=== PATIENT | male | born 1960 | race Caucasian/White ===

== ENCOUNTER 2017-01-29 07:45 | Day surgery (SDC) | payer OTHER ==
[2017-01-26 14:18] VITALS: BMI 34.2
[2017-01-29] VITALS (11 sets, daily range): BP systolic 113–134; BP diastolic 67–89; PULSE 62–70; RESP 13–18; Ht 170.2 cm; Wt 91.0 kg
[~2017-01-29] VITALS: Ht 170.2 cm; Wt 91.0 kg
[~2017-01-29 07:45] MED LIST: ASPI-664 PO; BUPR100T7 PO; CARI350T PO; CARV3.12 PO; CEFAZOLIN 2 GM/50 ML (PMX) 50 ML IVPB ONE; CLOP75TA27 PO; HYD25 PO; HYDR-762 PO; LOSA1TAB3 PO; MIRT15TA5 PO
[2017-01-29] MEDS ORDERED: CARV25TA79 PO (08:37)
[2017-01-29] MEDS ORDERED: ROPI0.5T2 PO (08:39)
[2017-01-29] MEDS ORDERED: GABA300C16 PO (08:40)
--- NOTE | 2017-01-29 09:28 | HPN ---
Date/Time of Note Date/Time of Note DATE: 01/29/17 TIME: 09:27 Interval H&P Admission Note Pt. seen H&P reviewed: No system changes JULIUS RUSHING DPM January 29, 2017 09:28
[2017-01-29] MEDS ORDERED: PROPOFOL 20 ML ONE (09:56)
[2017-01-29] MEDS ORDERED: FENTAnyl 50 MCG/ML VIAL ONE (09:56)
[2017-01-29] MEDS ORDERED: MIDAZOLAM 1 MG/ML 2 ML INJ ONE (09:56)
[2017-01-29] MEDS ORDERED: CEFAZOLIN 1 GM INJ ONE (10:09)
[2017-01-29] MEDS ORDERED: DIPHENHYDRAMINE 50 MG INJ IV PRN (10:30)
[2017-01-29] MEDS ORDERED: METOCLOPRAMIDE 10 MG INJ IV PRN (10:30)
[2017-01-29] MEDS ORDERED: ONDANSETRON 4 MG INJ IV PRN (10:30)
[2017-01-29] MEDS ORDERED: MEPERIDINE 25 MG INJ IV PRN (10:30)
[2017-01-29] MEDS ORDERED: OXYCODONE/ACETAMINOPHEN (5/325) TAB PO PRN ×2 (10:30)
[2017-01-29] MEDS ORDERED: HYDROmorphONE (0.2 MG/ML) 10ML SYG IV PRN ×3 (10:30)
[2017-01-29] MEDS ORDERED: LIDOCAINE 1% (MPF) 30 ML INJ INJ ONE (10:35)
[2017-01-29] MEDS ORDERED: BUPIVACAINE 0.5% 30 ML VIAL INJ ONE (10:35)
== END 2017-01-29 12:45 | disposition home or self-care (01) ==
LOC: SDS 07:45
PROVIDERS: ATTEND Podiatrist Foot & Ankle Surgery
DX: M20.42 Other hammer toe(s) (acquired), left foot (principal); E11.9 Type 2 diabetes mellitus without complications; Z86.73 Personal history of transient ischemic attack (TIA), and cerebral infarction without residual deficits; E78.5 Hyperlipidemia, unspecified; F17.200 Nicotine dependence, unspecified, uncomplicated
CPT/HCPCS: 28285; 88305; 88311; J0690; J2250; J3010; L3260; Z7512; Z7610

== ENCOUNTER 2017-03-02 11:04 | Inpatient (IN) | payer MEDICARE, MEDICAID ==
[~2017-03-02] VITALS: Ht 170.2 cm; Wt 94.1 kg
[~2017-03-02 11:04] MED LIST changes: -BUPR100T7 PO; +CARV25TA79 PO; -CARV3.12 PO; -CEFAZOLIN 2 GM/50 ML (PMX) 50 ML IVPB ONE; +GABA300C16 PO; -HYD25 PO; -MIRT15TA5 PO; +ROPI0.5T2 PO
[2017-03-02] MEDS ORDERED: PIPER-TAZO 3.375 GM IV (PMX) 100 ML IVPB STA (12:07)
[2017-03-02] MEDS ORDERED: SODIUM CHLORIDE 0.9% 1L BAG IV* STA (12:07)
[2017-03-02] MEDS ORDERED: HYDROmorphONE 1 MG/ML SYG IV STA ×2 (12:07→17:35)
[2017-03-02] MEDS ORDERED: ACETAMINOPHEN 325 MG TAB PO PRN (12:30)
[2017-03-02] MEDS ORDERED: ONDANSETRON 4 MG INJ IV PRN (12:30)
[2017-03-02] MEDS ORDERED: VANCOMYCIN 1 GM (PMX) 250 ML IVPB ONE (12:30)
[2017-03-02 12:40] LABS: ADD SCAN DIFF NO
[2017-03-02 12:41] LABS: BASOPHILS % 0.2 % (0.0-2.0); EOSINOPHILS # 0.2 10^3/ul (0.0-0.5); EOSINOPHILS % 1.3 % (0.0-7.0); HEMATOCRIT 41.5 % (42.0-52.0); HEMOGLOBIN 14.4 g/dl (14.0-18.0); LYMPHOCYTES # 1.7 10^3/ul (0.8-2.9); LYMPHOCYTES % 12.8 % (15.0-51.0); MEAN CORPUSCULAR HEMOGLOBIN 31.2 pg (29.0-33.0); MEAN CORPUSCULAR HGB CONC 34.7 g/dl (32.0-37.0); MEAN PLATELET VOLUME 9.9 fl (7.4-10.4); MONOCYTE # 1.2 10^3/ul (0.3-0.9); MONOCYTES % 8.8 % (0.0-11.0); NEUTROPHILS % 76.4 % (39.0-77.0); PLATELET COUNT 328 10^3/UL (140-415); RED BLOOD COUNT 4.61 10^6/ul (4.70-6.10); RED CELL DISTRIBUTION WIDTH 12.6 % (11.5-14.5); WHITE BLOOD COUNT 13.1 10^3/ul (4.8-10.8)
[2017-03-02 13:01] LABS: INR 0.9; PROTIME 12.1 Sec (12.2-14.2); PT RATIO 0.9
[2017-03-02 13:02] LABS: PARTIAL THROMBOPLASTIN TIME 31.8 Sec (25.0-35.0)
[2017-03-02 13:03] LABS: ALBUMIN 4.6 g/dl (3.3-4.9); ALBUMIN/GLOBULIN RATIO 1.84; BILIRUBIN,INDIRECT 0.3 mg/dl (0-1.1); BILIRUBIN,TOTAL 0.3 mg/dl (0.2-1.3); CALCIUM 9.4 mg/dl (8.4-10.2); CREATININE 1.15 mg/dl (0.61-1.24); POTASSIUM 4.3 mmol/L (3.5-5.1); TOTAL PROTEIN 7.1 g/dl (6.1-8.1)
[2017-03-02] MEDS ORDERED: CARI350T29 PO (13:08)
[2017-03-02 13:15] LABS: TROPONIN-I 0.027 ng/ml (0.00-0.12)
[2017-03-02 14:29] VITALS: TEMP 97.8
--- NOTE | 2017-03-02 15:10 | ERA ---
ER Documentation Chief Complaint Date/Time DATE: 03/02/17 TIME: 15:08 Chief Complaint Complains of left foot pain and swelling (noted cellulitis) HPI Patient is a 56-year-old male with coronary disease and hypertension who presents with left foot swelling and redness. He hit his pain in his foot on the chair 6-7 days ago and has had swelling and redness since then. He had surgery by Dr. Mcdaniel from podiatry a few months ago. He is concerned for infection. He is not currently on antibiotics. He denies fevers. He tried elevation of the leg and ice. ROS All systems reviewed and are negative except as per history of present illness. 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 10/14/14 Reported Medications Carisoprodol* (Carisoprodol*) 350 Mg Tablet, 350 MG PO Q8 Y for MUSCLE SPASMS, TAB 03/02/17 Gabapentin* (Gabapentin*) 300 Mg Capsule, 300 MG PO TID, #90 CAP 01/29/17 Ropinirole Hcl* (Ropinirole Hcl*) 0.5 Mg Tablet, 0.5 MG PO HS, TAB 01/29/17 Carvedilol* (Carvedilol*) 25 Mg Tablet, 25 MG PO BID, #60 TAB 01/29/17 Aspirin* (Aspirin* EC) 81 Mg Tablet.dr, 81 MG PO DAILY, TAB 10/13/14 Hydrocodone Bit-Acetaminophen* ([place]*) 10-325 Mg Tablet, 1 TAB PO Q4H Y for PAIN, TAB 10/13/14 Losartan-Hydrochlorothiazide (Hyzaar) 50-12.5 Mg Tab, 1 TAB PO DAILY, TAB 10/13/14 Discontinued Reported Medications Carisoprodol* (Soma*) 350 Mg Tablet, 350 MG PO Q8H Y for MUSCLE SPASMS, TAB 10/13/14 Allergies Allergies: Coded Allergies: morphine (Verified Allergy, Unknown, ITCHING, 03/02/17) PMhx/Soc History of Surgery: Yes (L 2nd toe surgery) Anesthesia Reaction: Yes (HARD TO WAKE UP) Hx Neurological Disorder: No Hx Respiratory Disorders: No Hx Cardiac Disorders: Yes (STENT 2007 ) Hx Psychiatric Problems: Yes (WAS ON ANTIDEPRESSANT --WEANED OFF) Hx Miscellaneous Medical Probl: Yes (MISSING 4th FINGER RIGHT HAND) Hx Alcohol Use: Yes (RARE) Hx Substance Use: No Hx Tobacco Use: Yes Smoking Status: Current every day smoker FmHx Family History: No diabetes Physical Exam Vitals Vital Signs Date Time Temp Pulse Resp B/P Pulse Ox O2 Delivery O2 Flow Rate FiO2 03/02/17 14:29 97.8 68 16 111/81 98 Room Air 03/02/17 13:01 Nasal Cannula 03/02/17 11:10 98.3 77 20 130/76 96 Physical Exam Const: Moderate distress secondary to pain Head: Atraumatic Eyes: Normal Conjunctiva ENT: Normal External Ears, Nose and Mouth. Neck: Full range of motion..~ No meningismus. Resp: Clear to auscultation bilaterally Cardio: Regular rate and rhythm, no murmurs Abd: Soft, non tender, non distended. Normal bowel sounds Skin: Redness and swelling to the left foot concerning for cellulitis, no crepitus Back: No midline or flank tenderness Ext: No cyanosis, or edema Neur: Awake and alert Psych: Normal Mood and Affect Result Diagram: 03/02/17 1210 03/02/17 1210 Results 24 hrs Laboratory Tests Test 03/02/17 12:10 White Blood Count 13.110^3/ul Red Blood Count 4.6110^6/ul Hemoglobin 14.4g/dl Hematocrit 41.5% Mean Corpuscular Volume 90.0fl Mean Corpuscular Hemoglobin 31.2pg Mean Corpuscular Hemoglobin Concent 34.7g/dl Red Cell Distribution Width 12.6% Platelet Count 25592^3/UL Mean Platelet Volume 9.9fl Neutrophils % 76.4% Lymphocytes % 12.8% Monocytes % 8.8% Eosinophils % 1.3% Basophils % 0.2% Nucleated Red Blood Cells % 0.0/100WBC Neutrophils # 10.010^3/ul Lymphocytes # 1.710^3/ul Monocytes # 1.210^3/ul Eosinophils # 0.210^3/ul Basophils # 0.010^3/ul Nucleated Red Blood Cells # 0.010^3/ul Prothrombin Time 12.1Sec Prothrombin Time Ratio 0.9 INR International Normalized Ratio 0.90 Activated Partial Thromboplast Time 31.8Sec Sodium Level 139mmol/L Potassium Level 4.3mmol/L Chloride Level 103mmol/L Carbon Dioxide Level 30mmol/L Anion Gap 10 Blood Urea Nitrogen 24mg/dl Creatinine 1.15mg/dl Glucose Level 83mg/dl Lactic Acid Level 0.7mmol/L Calcium Level 9.4mg/dl Total Bilirubin 0.3mg/dl Direct Bilirubin 0.00mg/dl Indirect Bilirubin 0.3mg/dl Aspartate Amino Transf (AST/SGOT) 24IU/L Alanine Aminotransferase (ALT/SGPT) 27IU/L Alkaline Phosphatase 61IU/L Troponin I 0.027ng/ml Total Protein 7.1g/dl Albumin 4.6g/dl Globulin 2.50g/dl Albumin/Globulin Ratio 1.84 Current Medications Medications (Trade) Dose Ordered Sig/Reed Route PRN Reason Start Time Stop Time Status Last Admin Dose Admin Sodium Chloride 3100 ml 3,100 ml BOLUS OVER 2 HOURS STAT IV* 03/02/17 12:07 03/02/17 12:09 DC 03/02/17 12:50 Vancomycin HCl 250 ml @ 125 mls/hr ONCE ONCE IVPB 03/02/17 12:30 03/02/17 14:29 DC 03/02/17 13:49 Piperacillin Sod/ Tazobactam Sod (Zosyn 3.375gm/ 100 ml (Pmx)) 100 ml @ 200 mls/hr ONCE STAT IVPB 03/02/17 12:07 03/02/17 12:36 DC 03/02/17 12:50 Hydromorphone HCl (Dilaudid) 1 mg ONCE STAT IV 03/02/17 12:07 03/02/17 12:09 DC 03/02/17 12:50 Ondansetron HCl (Zofran Inj) 4 mg BRIDGE ORDER PRN IV NAUSEA AND/OR VOMITING 03/02/17 12:30 03/03/17 12:29 03/02/17 12:50 Acetaminophen (Tylenol Tab) 650 mg ER BRIDGE PRN PO MILD PAIN/FEVER 03/02/17 12:30 03/03/17 12:29 Procedures/MDM X-ray of the left foot pending at this time. EKG read by me: Rate/Rhythm: Regular rate and rhythm at a normal rate Intervals: Normal Impression: No evidence of ischemia or arrhythmia Smoking Cessation Therapy: Pt. was lectured for greater than 3 minutes on the health risks of continued smoking and the benefits of cessation. Patient is a 56-year-old male with coronary disease and smoking who presents with left foot swelling and redness. I am concerned for acute cellulitis and he has had recent surgery to the concern for osteomyelitis exists as well. The patient was given broad-spectrum antibiotics with vancomycin and Zosyn. At this point I doubt sepsis. The patient will be admitted to the care of Dr. Yadav as Dr. Yadav has admitted him in the past and he has Medicare insurance. The patient can be seen by Dr. Mcdaniel while he is admitted to the hospital. Departure Diagnosis: Primary Impression: Cellulitis Qualified Code: L03.116 - Cellulitis of left lower extremity Condition: SAILAJA Lr MD Mar 02, 2017 15:10
--- NOTE | 2017-03-02 15:31 | RADRPT ---
PROCEDURE: XR Foot 3 Views. CLINICAL INDICATION: Foot pain and infection. TECHNIQUE: AP, oblique and lateral views of the left foot were obtained. The images were reviewed on a PACS workstation. COMPARISON: None. FINDINGS: Fixation pin is identified extending through the second proximal and middle phalanges, into the prox imal phalanx. Diffuse osteopenia is identified. The osseous structures appear grossly intact. Pote ntial erosion of the tuft and undersurface of the second distal phalanx is identified. Interosseou s spaces are grossly unremarkable. Large Achilles insertion heel spur is seen. The soft tissues are grossly unremarkable. IMPRESSION: Fixation pin extending through the second distal and middle phalanges, into the proximal phalanx. Potential erosion of the tuft and undersurface of the second distal phalanx. Osteomyelitis is not e xcluded. If further characterization is needed MRI or bone scan could be helpful. Achilles insertion heel spur. If there is clinical suspicion for additional sites of osteomyelitis, further characterization with MRI or bone scan is recommended. RPTAT: AA .Hai Ibarra MD, MD Date Time Electronically viewed and signed by .Hai Ibarra MD, on 03/02/2017 15:31 .P/
[2017-03-02] MEDS ORDERED: CARISOPRODOL 350 MG TAB PO PRN (18:00)
[2017-03-02] MEDS ORDERED: VANCOMYCIN IV PER PHARMACY XX SCH (18:00)
[2017-03-02] MEDS: PIPER-TAZO 3.375 GM IV (PMX) 100 ML IVPB SCH (18:14)
[2017-03-02] MEDS ORDERED: VANCOMYCIN 1 GM in NS 250 ML IVPB SCH (18:30)
--- NOTE | 2017-03-02 18:31 | HP ---
DATE OF ADMISSION: 03/02/2017 CHIEF COMPLAINT: Left foot pain, swelling, redness extending to the left leg. HISTORY OF PRESENT ILLNESS: The patient is a 56-year-old gentleman with a history of coronary arter y disease, status post percutaneous coronary intervention to circumflex with drug-eluting stent by Nena Delgado in September 2014. The patient also has history of hypertension, mild peripheral arterial d isease, dyslipidemia, and tobacco abuse. The patient also is status post right foot hammertoe surge ry by Dr. Violeta perdomo in 2015. The patient, on 01/29/2017, underwent surgery for left foot hammerto e. Detailed operative report is still not available in the chart. The patient, however, was noted to have increasing swelling of the left foot including erythema and pain. The patient called Dr. Tommie taylor's office and was recommended to go to [facility] ER. The patient was seen in the ER b y Dr. Scott Dejesus, and the patient was noted to have white count of 13.1. The patient also underwe nt x-ray of the foot which revealed fixation pin extending through the second distal and middle phal anges into the proximal phalanx, potentially origin of tuft and undersurface of the second distal ph alanx. Osteomyelitis is not excluded. The patient is being admitted for further evaluation and man agement. REVIEW OF SYSTEMS: The patient denied any recent chest pain, headache, dizziness, syncope. No hist ory of shortness of breath, no history of claudication. No history of abdominal pain. No history o f nausea, vomiting, diarrhea. No history of anorexia, no history of focal weakness. A total of 12 systems were reviewed, and all pertinent positive and negative findings have been described in the H PI. PAST MEDICAL HISTORY: As stated above. The patient, back in September 2014, was admitted for electiv e cardiac catheterization after he was noted to have abnormal stress test and underwent CUPOLA MAN of circu mflex. 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 The patient incidentally at that time was also noted to have mild peripheral arterial disease. PAST SURGICAL HISTORY: The patient is status post degloving of the right 4th finger due to occupati on injury and hammertoe surgery for the right foot and recently had hammertoe surgery for the left f oot. FAMILY HISTORY: Father from complication of lung cancer at the age of 72. Mother with his tory of coronary artery disease. SOCIAL HISTORY: The patient was born in [place]. The patient has been smoking a pack of cigaret lexi a day for several years. The patient does intend to quit smoking. PHYSICAL EXAMINATION: GENERAL: The patient is conscious, awake, alert. VITAL SIGNS: Temperature 97.8, pulse 68, respirations 16, blood pressure 111/61, O2 saturation 98% on room air. HEENT: Atraumatic, normocephalic. Conjunctivae and lids normal. Oropharynx clear. NECK: Supple. No mass, no thyromegaly. CHEST: Fairly clear. No use of accessory muscles. CARDIOVASCULAR: S1, S2 normal. No murmur, gallop, or rub. ABDOMEN: Soft, nondistended, nontender. No palpable mass. EXTREMITIES: Left foot is warm, swollen, and tender, and also the swelling is extending into the le ft leg. Right foot is normal with status post hammertoe surgery. Pedal pulses palpable in the righ t foot. Left foot, because of swelling, I could not appreciate pedal pulses. NEUROLOGIC: The patient is awake, alert, oriented with no gross focal deficit. LABORATORY DATA: Done this morning, WBC 13.1, hemoglobin 14.4, platelets 328. Chemistry: Sodium 1 39, potassium 4.3, BUN 24, creatinine 1.1, glucose 83, calcium 9.4. Liver enzymes normal. IMPRESSION: 1. Left foot abscess with possible osteomyelitis and left leg cellulitis, possibly due to postopera tive infection after recent left foot hammertoe surgery. 2. Hypertension. 3. Coronary artery disease status post CUPOLA MAN of left circumflex. 4. Dyslipidemia. PLAN: The patient is admitted on medical floor. The patient will be started on IV vancomycin and Z osyn. Blood cultures have been sent from ER. The patient will be continued on aspirin, Plavix, car vedilol, and Hyzaar. We will add Lovenox for DVT prophylaxis. ID consult from Dr. Isbell has bee n requested, and we will also notify Dr. Mann Mcdaniel from podiatry standpoint. Plan of care discus sed with Dr. Scott Dejesus as well as nursing staff. Further recommendations will depend on patient' s hospital course. Dictated By: ANGÉLICA REID/FELIPE Conf#: [id number] [facility]#: [id number]
[2017-03-02 19:03] LABS: ADD UMIC NO; UR BILIRUBIN (Dip) NEGATIVE (NEGATIVE); UR BLOOD (Dip) NEGATIVE (NEGATIVE); UR CLARITY CLEAR (CLEAR); UR COLOR LT. YELLOW (YELLOW); UR GLUCOSE (Dip) NEGATIVE (NEGATIVE); UR KETONES (Dip) NEGATIVE (NEGATIVE); UR LEUKOCYTE ESTERASE (Dip) NEGATIVE (NEGATIVE); UR NITRITE (Dip) NEGATIVE (NEGATIVE); UR TOTAL PROTEIN (Dip) NEGATIVE (NEGATIVE); UR UROBILINOGEN (Dip) 0.2 E.U./dL (0.1-1.0)
[2017-03-02 19:36] VITALS: Ht 170.2 cm; Wt 94.1 kg
[2017-03-02 20:41] VITALS: BP 132/84; RESP 20
[2017-03-02] MEDS: HYDROmorphONE 1 MG/ML SYG IV PRN (21:42)
[2017-03-02] MEDS: GABAPENTIN 300 MG CAP PO SCH (21:48)
[2017-03-02] MEDS: ATORVASTATIN 20 MG TAB PO SCH (21:48)
[2017-03-02] MEDS: ROPINIROLE 0.25 MG TAB PO SCH (21:48)
[2017-03-02] MEDS ORDERED: AL HYDROX/MG HYDROX/SIMETH 30 ML CUP PO PRN ×2 (22:00)
[2017-03-03] MEDS: PIPER-TAZO 3.375 GM IV (PMX) 100 ML IVPB SCH ×4 (01:03→17:36)
[2017-03-03] MEDS: PANTOPRAZOLE (EC) 40 MG TAB PO SCH (05:45)
[2017-03-03] MEDS: HYDROmorphONE 1 MG/ML SYG IV PRN ×2 (05:48→18:03)
[2017-03-03 08:06] VITALS: BP 136/65; RESP 18
[2017-03-03] MEDS: ASPIRIN (EC) 81 MG TAB PO SCH (08:45)
[2017-03-03] MEDS: HYDROCHLOROTHIAZIDE 12.5 MG CAP PO SCH (08:46)
[2017-03-03] MEDS: CLOPIDOGREL 75 MG TAB PO SCH (08:46)
[2017-03-03] MEDS: GABAPENTIN 300 MG CAP PO SCH ×3 (08:46→21:50)
[2017-03-03] MEDS: LOSARTAN 50 MG TAB PO SCH (08:47)
[2017-03-03] MEDS ORDERED: LOSARTAN HYDROCHLOROTHIAZIDE PO SCH (09:00)
[2017-03-03] MEDS: ENOXAPARIN 40 MG/0.4 ML SYG SC SCH (09:01)
[2017-03-03] MEDS: VANCOMYCIN 1.25 GM in SOD CHLORIDE 0.9% 250 ML IVPB SCH ×2 (09:55→21:50)
--- NOTE | 2017-03-03 11:23 | PN ---
Date/Time of Note Date/Time of Note DATE: 03/03/17 TIME: 11:22 Assessment/Plan VTE Prophylaxis VTE Prophylaxis Intervention: other Lines/Catheters IV Catheter Type (from Nrs): Saline Lock Assessment/Plan Chief Complaint/Hosp Course 1. Left foot abscess with possible osteomyelitis and left leg cellulitis, possibly due to postoperative infection after recent left foot hammertoe surgery. - IV antibiotics - surgery to see 2. Hypertension. - monitor, continue medications 3. Coronary artery disease status post EPIC PRELUDE ANALYST of left circumflex. 4. Dyslipidemia. Problems: Subjective 24 Hr Interval Summary Free Text/Dictation Patient complains of left foot pain Exam/Review of Systems Vital Signs Vitals Vital Signs Date Time Temp Pulse Resp B/P Pulse Ox O2 Delivery O2 Flow Rate FiO2 03/03/17 08:06 97.5 63 18 136/65 97 03/02/17 14:29 Room Air Intake and Output 03/02/17 03/02/17 03/03/17 15:00 23:00 07:00 Intake Total 100 ml 1170 ml Output Total 700 ml Balance 100 ml 470 ml Exam Constitutional: well developed Head: atraumatic, normocephalic Neck: supple Respiratory: clear to auscultation Cardiovascular: regular rate and rhythm Gastrointestinal: non-tender, soft Extremities: normal pulses Results Result Diagram: 03/02/17 1210 03/02/17 1210 Results 24 hrs Laboratory Tests Test 03/02/17 12:10 03/02/17 14:45 03/02/17 18:51 03/02/17 19:40 White Blood Count 13.1 H Red Blood Count 4.61 L Hemoglobin 14.4 Hematocrit 41.5 L Mean Corpuscular Volume 90.0 Mean Corpuscular Hemoglobin 31.2 Mean Corpuscular Hemoglobin Concent 34.7 Red Cell Distribution Width 12.6 Platelet Count 328 Mean Platelet Volume 9.9 Neutrophils % 76.4 Lymphocytes % 12.8 L Monocytes % 8.8 Eosinophils % 1.3 Basophils % 0.2 Nucleated Red Blood Cells % 0.0 Neutrophils # 10.0 H Lymphocytes # 1.7 Monocytes # 1.2 H Eosinophils # 0.2 Basophils # 0.0 Nucleated Red Blood Cells # 0.0 Prothrombin Time 12.1 L Prothrombin Time Ratio 0.9 INR International Normalized Ratio 0.90 Activated Partial Thromboplast Time 31.8 Sodium Level 139 Potassium Level 4.3 Chloride Level 103 Carbon Dioxide Level 30 Anion Gap 10 Blood Urea Nitrogen 24 H Creatinine 1.15 Glucose Level 83 Lactic Acid Level 0.7 1.1 1.1 Calcium Level 9.4 Total Bilirubin 0.3 Direct Bilirubin 0.00 Indirect Bilirubin 0.3 Aspartate Amino Transf (AST/SGOT) 24 Alanine Aminotransferase (ALT/SGPT) 27 Alkaline Phosphatase 61 Troponin I 0.027 Total Protein 7.1 Albumin 4.6 Globulin 2.50 Albumin/Globulin Ratio 1.84 Urine Color LT. YELLOW Urine Clarity CLEAR Urine pH 5.5 Urine Specific [place] >=1.030 H Urine Ketones NEGATIVE Urine Nitrite NEGATIVE Urine Bilirubin NEGATIVE Urine Urobilinogen 0.2 E.U./dL Urine Leukocyte Esterase NEGATIVE Urine Hemoglobin NEGATIVE Urine Glucose NEGATIVE Urine Total Protein NEGATIVE Medications Medications Current Medications Aspirin (Halfprin) 81 mg DAILY PO Last administered on 03/03/17 08:45; Admin Dose 81 MG; Start 03/03/17 at 09:00 Carisoprodol (Soma) 350 mg Q8 PRN PO MUSCLE SPASMS; Start 03/02/17 at 18:00 Carvedilol (Coreg) 25 mg BID PO Last administered on 03/03/17 08:48; Admin Dose 25 MG; Start 03/02/17 at 21:00 Clopidogrel Bisulfate (plaVIX) 75 mg DAILY PO Last administered on 03/03/17 08 :46; Admin Dose 75 MG; Start 03/03/17 at 09:00 Gabapentin (Neurontin) 300 mg TID PO Last administered on 03/03/17 08:46; Admin Dose 300 MG; Start 03/02/17 at 21:00 Acetaminophen/ Hydrocodone Bitart ([place] (10/325)) 1 tab Q4H PRN PO PAIN; Start 03/02/17 at 18:00 Ropinirole HCl (Requip) 0.5 mg HS PO Last administered on 03/02/17 21:48; Admin Dose 0.5 MG; Start 03/02/17 at 21:00 Atorvastatin Calcium 20 mg 20 mg HS PO Last administered on 03/02/17 21:48; Admin Dose 20 MG; Start 03/02/17 at 21:00 Piperacillin Sod/ Tazobactam Sod (Zosyn 3.375gm/ 100 ml (Pmx)) 100 ml @ 200 mls /hr Q6 IVPB Last administered on 03/03/17 05:45; Admin Dose 200 MLS/HR; Start 03/02/17 at 18:00 Enoxaparin Sodium (Lovenox) 40 mg DAILY SC Last administered on 03/03/17 09:01 ; Admin Dose 40 MG; Start 03/03/17 at 09:00 Hydromorphone HCl (Dilaudid) 1 mg Q4H PRN IV PAIN Last administered on 05:48; Admin Dose 1 MG; Start 03/02/17 at 18:00 Acetaminophen (Tylenol Tab) 650 mg Q4H PRN PO PAIN AND OR ELEVATED TEMP; Start 03/02/17 at 18:00 Losartan Potassium (Cozaar) 50 mg DAILY PO Last administered on 03/03/17 08:47 ; Admin Dose 50 MG; Start 03/03/17 at 09:00 Hydrochlorothiazide 12.5 mg 12.5 mg DAILY PO Last administered on 03/03/17 08: 46; Admin Dose 12.5 MG; Start 03/03/17 at 09:00 Vancomycin HCl/ Sodium Chloride (Vancocin/NS) 250 ml @ 83.333 mls/ hr Q12H IVPB Last administered on 03/03/17 09:55; Admin Dose 83.333 MLS/HR; Start 07/10 at 09:00 Pantoprazole (Protonix Tab) 40 mg DAILY@06 PO Last administered on 03/03/17 05 :45; Admin Dose 40 MG; Start 03/03/17 at 06:00 Al Hydrox/Mg Hydrox/Simethicone (Mag-Al Plus) 30 ml Q4H PRN PO HEART BURN; Start 03/02/17 at 22:00 Miscellaneous Information (*Rx Drug Level Order Reminder*) VANCOMYCIN TROUGH AT 0800 ONCE ONCE XX ; Start 03/04/17 at 08:00; Stop 03/04/17 at 08:01 RAFAEL PAK Mar 03, 2017 11:23
[2017-03-03] MEDS: HYDROCODONE/APAP (10/325) TAB PO PRN (12:48)
--- NOTE | 2017-03-03 18:47 | CONS ---
Date/Time of Note Date/Time of Note DATE: 03/03/17 TIME: 18:32 Assessment/Plan Assessment/Plan Chief Complaint/Hosp Course assessment/impression - possible erosion and OM of the tuft and undersurface of 2nd distal phalanx (X Ray finding), probably involving the fixation pin as pus was expressed at its insertion site - s/p L hammartoe repair on 01/29/2017 - s/p R hammartoe repair in 2016 - h/o skin and soft tissue infection of RLE - CAD s/p PCI - PVD - active smoker - moderate drinker recommendations - I expressed purulence from the insertion site of the fixation pin of L 2nd toe and sent it for culture today; will review the result - check ESR (ordered) - continue empiric IV vancomycin and pip/tazo; will adjust his antibiotics based on the final culture results management d/w Pt, his and RN CAD and PVD. Pt had repair of R hammertoe in 2015. On 01/29/2017, Pt repair of L hammertoe and a fixation pin is in L 2nd toe. Next 4 weeks, Pt experienced slowly increasing pain, erythema and swelling of L toes and foot. As a result, Pt was advised to come to ER. XR of L foot showed Problems: Consultation Date/Type/Reason Admit Date/Time Mar 02, 2017 at 12:28 Date of Consultation: Mar 03, 2017 Type of Consultation: ID Reason for Consultation diabetic infection and probable OM of L foot Referring Provider: ANGÉLICA YADAV MD Hx of Present Illness This is a 56 yo male smoker with CAD and PVD. Pt had repair of R hammertoe in 2015. On 01/29/2017, Pt repair of L hammertoe and a fixation pin is in L 2nd toe. Next 4 weeks, Pt experienced slowly increasing pain, erythema and swelling of L toes and foot. As a result, Pt was advised to come to ER. XR of L foot showed possible erosion and OM of the tuft and undersurface of the second distal phalanx. Dr. Yadav requested ID consultation on this Pt. Constitutional: chills, No diaphoresis, No febrile Eyes: no complaints ENT: no complaints Respiratory: no complaints Cardiovascular: no complaints Gastrointestinal: no complaints Genitourinary: no complaints Musculoskeletal: bone/joint pain (severe L toe and foot pain) Skin: erythema (and swelling of L dorsal foot) Neurologic: no complaints Past Medical History Medical History: coronary artery disease, hypertension, other (PVD) Past Surgical History Past Surgical Hx: angioplasty, other (hammertoe repair) Social History Alcohol Use: occasionally Smoking Status: Current some day smoker Drug Use: none Exam/Review of Systems Vital Signs Vitals Vital Signs Date Time Temp Pulse Resp B/P Pulse Ox O2 Delivery O2 Flow Rate FiO2 03/03/17 08:06 97.5 63 18 136/65 97 03/02/17 14:29 Room Air Intake and Output 03/02/17 03/02/17 03/03/17 15:00 23:00 07:00 Intake Total 100 ml 1170 ml Output Total 700 ml Balance 100 ml 470 ml Exam Constitutional: alert, oriented, well developed Psych: nl mood/affect, no complaints Head: atraumatic, normocephalic Eyes: EOMI, nl conjunctiva, nl lids ENMT: nl external ears & nose, nl nasal mucosa & septum Neck: supple Respiratory: clear to auscultation, normal air movement Cardiovascular: nl pulses, regular rate and rhythm Gastrointestinal: non-tender, soft Musculoskeletal: joint tenderness (L toe with a fixation pin, TTP), swelling Extremities: edema, pitting pedal edema Neurological: other (sentation of all toes and feet are intact) Skin: rash or lesions (wound at the insertion site of fixation pin, +creamy discharge) Results Result Diagram: 03/02/17 1210 03/02/17 1210 Results 24 hrs Laboratory Tests Test 03/02/17 18:51 03/02/17 19:40 Urine Color LT. YELLOW Urine Clarity CLEAR Urine pH 5.5 Urine Specific [place] >=1.030 H Urine Ketones NEGATIVE Urine Nitrite NEGATIVE Urine Bilirubin NEGATIVE Urine Urobilinogen 0.2 E.U./dL Urine Leukocyte Esterase NEGATIVE Urine Hemoglobin NEGATIVE Urine Glucose NEGATIVE Urine Total Protein NEGATIVE Lactic Acid Level 1.1 Medications Medications Current Medications Aspirin (Halfprin) 81 mg DAILY PO Last administered on 03/03/17 08:45; Admin Dose 81 MG; Start 03/03/17 at 09:00 Carisoprodol (Soma) 350 mg Q8 PRN PO MUSCLE SPASMS; Start 03/02/17 at 18:00 Carvedilol (Coreg) 25 mg BID PO Last administered on 03/03/17 08:48; Admin Dose 25 MG; Start 03/02/17 at 21:00 Clopidogrel Bisulfate (plaVIX) 75 mg DAILY PO Last administered on 03/03/17 08 :46; Admin Dose 75 MG; Start 03/03/17 at 09:00 Gabapentin (Neurontin) 300 mg TID PO Last administered on 03/03/17 12:31; Admin Dose 300 MG; Start 03/02/17 at 21:00 Acetaminophen/ Hydrocodone Bitart ([place] (10/325)) 1 tab Q4H PRN PO PAIN Last administered on 03/03/17 12:48; Admin Dose 1 TAB; Start 03/02/17 at 18:00 Ropinirole HCl (Requip) 0.5 mg HS PO Last administered on 03/02/17 21:48; Admin Dose 0.5 MG; Start 03/02/17 at 21:00 Atorvastatin Calcium 20 mg 20 mg HS PO Last administered on 03/02/17 21:48; Admin Dose 20 MG; Start 03/02/17 at 21:00 Piperacillin Sod/ Tazobactam Sod (Zosyn 3.375gm/ 100 ml (Pmx)) 100 ml @ 200 mls /hr Q6 IVPB Last administered on 03/03/17 17:36; Admin Dose 200 MLS/HR; Start 03/02/17 at 18:00 Enoxaparin Sodium (Lovenox) 40 mg DAILY SC Last administered on 03/03/17 09:01 ; Admin Dose 40 MG; Start 03/03/17 at 09:00 Hydromorphone HCl (Dilaudid) 1 mg Q4H PRN IV PAIN Last administered on 18:03; Admin Dose 1 MG; Start 03/02/17 at 18:00 Acetaminophen (Tylenol Tab) 650 mg Q4H PRN PO PAIN AND OR ELEVATED TEMP; Start 03/02/17 at 18:00 Losartan Potassium (Cozaar) 50 mg DAILY PO Last administered on 03/03/17 08:47 ; Admin Dose 50 MG; Start 03/03/17 at 09:00 Hydrochlorothiazide 12.5 mg 12.5 mg DAILY PO Last administered on 03/03/17 08: 46; Admin Dose 12.5 MG; Start 03/03/17 at 09:00 Vancomycin HCl/ Sodium Chloride (Vancocin/NS) 250 ml @ 83.333 mls/ hr Q12H IVPB Last administered on 03/03/17 09:55; Admin Dose 83.333 MLS/HR; Start 07/10 at 09:00 Pantoprazole (Protonix Tab) 40 mg DAILY@06 PO Last administered on 03/03/17 05 :45; Admin Dose 40 MG; Start 03/03/17 at 06:00 Al Hydrox/Mg Hydrox/Simethicone (Mag-Al Plus) 30 ml Q4H PRN PO HEART BURN; Start 03/02/17 at 22:00 Miscellaneous Information (*Rx Drug Level Order Reminder*) VANCOMYCIN TROUGH AT 0800 ONCE ONCE XX ; Start 03/04/17 at 08:00; Stop 03/04/17 at 08:01 HÉCTOR NO M.D. Mar 03, 2017 18:43
[2017-03-03 20:04] VITALS: BP 136/63; RESP 20
[2017-03-03] MEDS: ROPINIROLE 0.25 MG TAB PO SCH (21:50)
[2017-03-03] MEDS: ATORVASTATIN 20 MG TAB PO SCH (21:51)
[2017-03-04] MEDS: PIPER-TAZO 3.375 GM IV (PMX) 100 ML IVPB SCH ×4 (00:23→17:29)
[2017-03-04] MEDS: HYDROmorphONE 1 MG/ML SYG IV PRN ×3 (02:20→22:08)
[2017-03-04] MEDS: PANTOPRAZOLE (EC) 40 MG TAB PO SCH (05:58)
[2017-03-04 07:49] VITALS: BP 115/68; RESP 16
[2017-03-04 07:56] LABS: ADD SCAN DIFF NO
[2017-03-04 07:59] VITALS: BP 115/68; RESP 16
[2017-03-04 08:02] LABS: BASOPHILS % 0.5 % (0.0-2.0); EOSINOPHILS # 0.1 10^3/ul (0.0-0.5); EOSINOPHILS % 1.7 % (0.0-7.0); HEMATOCRIT 40.4 % (42.0-52.0); HEMOGLOBIN 13.1 g/dl (14.0-18.0); LYMPHOCYTES # 1.8 10^3/ul (0.8-2.9); MEAN CORPUSCULAR HGB CONC 32.4 g/dl (32.0-37.0); MEAN CORPUSCULAR VOLUME 92.4 fl (82.0-101.0); MEAN PLATELET VOLUME 10.1 fl (7.4-10.4); MONOCYTE # 0.7 10^3/ul (0.3-0.9); MONOCYTES % 8.8 % (0.0-11.0); NEUTROPHIL # 5.4 10^3/ul (1.6-7.5); NEUTROPHILS % 66.3 % (39.0-77.0); PLATELET COUNT 238 10^3/UL (140-415); RED BLOOD COUNT 4.37 10^6/ul (4.70-6.10); RED CELL DISTRIBUTION WIDTH 12.8 % (11.5-14.5); WHITE BLOOD COUNT 8.2 10^3/ul (4.8-10.8)
[2017-03-04 08:28] LABS: CALCIUM 8.9 mg/dl (8.4-10.2); CREATININE 1.09 mg/dl (0.61-1.24); POTASSIUM 4.7 mmol/L (3.5-5.1)
[2017-03-04] MEDS: ASPIRIN (EC) 81 MG TAB PO SCH (08:55)
[2017-03-04] MEDS: CLOPIDOGREL 75 MG TAB PO SCH (08:55)
[2017-03-04] MEDS: LOSARTAN 50 MG TAB PO SCH (08:55)
[2017-03-04] MEDS: HYDROCHLOROTHIAZIDE 12.5 MG CAP PO SCH (08:55)
[2017-03-04] MEDS: GABAPENTIN 300 MG CAP PO SCH ×3 (08:56→21:07)
[2017-03-04] MEDS: ENOXAPARIN 40 MG/0.4 ML SYG SC SCH (09:05)
[2017-03-04] MEDS: VANCOMYCIN 1.25 GM in SOD CHLORIDE 0.9% 250 ML IVPB SCH ×2 (09:09→21:02)
--- NOTE | 2017-03-04 10:46 | CONS ---
DATE OF ADMISSION: 03/02/2017 DATE OF CONSULTATION: 03/04/2017 VASCULAR SURGERY CONSULTATION Dear doctors: Mr. El is a 56-year-old gentleman, morbidly obese, who presented to [facility] secondary to left lower extremity foot infection for which he has been started on IV antibiotics. The patient has had a history of hammertoe surgery of the second toe. At the [facility], [place], he denies shortness of breath, chest pain, nausea, vomiting, fever, or chills. He denies lower e xtremity rest pain; however, he does have short distance claudication of about 1 block of the bilate ral lower extremities. The patient also mentions that his lower extremities have been more swollen than in the past. The patient is an active smoker of 1 pack a day for more than 40 years. REVIEW OF SYSTEMS: A 14-point review performed and negative except what is mentioned in the HPI. PAST MEDICAL HISTORY: Entails coronary artery disease, morbidly obese, hypertension, bilateral lowe r extremity atherosclerosis, dyslipidemia, smoker. 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 FAMILY HISTORY: Positive for hypertension, coronary artery disease. SOCIAL HISTORY: Active smoker. Denies alcohol or illicit drug use. PHYSICAL EXAMINATION: GENERAL: Alert and oriented x3, no apparent distress. HEENT: Normocephalic, atraumatic. PERRLA, EOMI. Mucosa moist. NECK: Supple. No carotid bruit. PULMONARY: Clear to auscultation bilaterally. No crackles. CARDIOVASCULAR: S1, S2 present. No murmurs. ABDOMEN: Soft, nontender, nondistended. Bowel sounds positive. Truncal obesity. RIGHT LOWER EXTREMITY: Palpable femoral pulse. Faint pedal pulse. Motor, sensory intact. Cap ref ill 3 to 4 seconds. No surgical scars. LEFT LOWER EXTREMITY: Palpable femoral pulse. No pedal pulse (possibly secondary to edema.) Motor , sensory intact. Cap refill 3 seconds. Left second toe with pin intact ASSESSMENT AND PLAN: 1. Bilateral lower extremity atherosclerosis with left lower extremity nonhealing second toe. It s eems the patient has some component of atherosclerotic disease as what he describes as short distanc e claudication. We will plan to obtain noninvasive vascular arterial vascular studies to better del ineate his infrainguinal disease. 2. Optimize vascular status (BP meds, diet, nutrition, exercise, sugar control, antiplatelet.) 3. I would recommend weight loss and tobacco cessation. Discussed findings, plan, and management with the patient, and he understands. Thank you for allowing us to partake in the care of your patient. Please call with any questions. Dictated By: WILIAN HARDING/FELIPE Conf#: [id number] DID#: [id number]
--- NOTE | 2017-03-04 10:59 | PN ---
Date/Time of Note Date/Time of Note DATE: 03/04/17 TIME: 10:59 Assessment/Plan VTE Prophylaxis VTE Prophylaxis Intervention: other Lines/Catheters IV Catheter Type (from Nrs): Saline Lock Assessment/Plan Chief Complaint/Hosp Course 1. Left foot abscess with possible osteomyelitis and left leg cellulitis, possibly due to postoperative infection after recent left foot hammertoe surgery. - IV antibiotics - surgery to see 2. Hypertension. - monitor, continue medications 3. 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 4. Dyslipidemia. Problems: Subjective 24 Hr Interval Summary Free Text/Dictation Patient has pain in left foot Exam/Review of Systems Vital Signs Vitals Vital Signs Date Time Temp Pulse Resp B/P Pulse Ox O2 Delivery O2 Flow Rate FiO2 03/04/17 07:59 98.0 66 16 115/68 98 03/02/17 14:29 Room Air Intake and Output 03/03/17 03/03/17 03/04/17 15:00 23:00 07:00 Intake Total 350 ml 1190 ml 200 ml Output Total 400 ml 700 ml Balance -50 ml 490 ml 200 ml Exam Constitutional: well developed Head: atraumatic, normocephalic Neck: supple Respiratory: clear to auscultation Cardiovascular: regular rate and rhythm Gastrointestinal: non-tender, soft Extremities: normal pulses Results Result Diagram: 03/04/17 0740 03/04/17 0740 Results 24 hrs Laboratory Tests Test 03/04/17 07:40 White Blood Count 8.2 # Red Blood Count 4.37 L Hemoglobin 13.1 L Hematocrit 40.4 L Mean Corpuscular Volume 92.4 Mean Corpuscular Hemoglobin 30.0 Mean Corpuscular Hemoglobin Concent 32.4 Red Cell Distribution Width 12.8 Platelet Count 238 # Mean Platelet Volume 10.1 Neutrophils % 66.3 Lymphocytes % 22.0 Monocytes % 8.8 Eosinophils % 1.7 Basophils % 0.5 Nucleated Red Blood Cells % 0.0 Neutrophils # 5.4 Lymphocytes # 1.8 Monocytes # 0.7 Eosinophils # 0.1 Basophils # 0.0 Nucleated Red Blood Cells # 0.0 Erythrocyte Sedimentation Rate 20.0 Sodium Level 142 Potassium Level 4.7 Chloride Level 110 Carbon Dioxide Level 28 Anion Gap 9 Blood Urea Nitrogen 16 Creatinine 1.09 Glucose Level 106 Calcium Level 8.9 Vancomycin Level Trough 12.6 Medications Medications Current Medications Aspirin (Halfprin) 81 mg DAILY PO Last administered on 03/04/17 08:55; Admin Dose 81 MG; Start 03/03/17 at 09:00 Carisoprodol (Soma) 350 mg Q8 PRN PO MUSCLE SPASMS; Start 03/02/17 at 18:00 Carvedilol (Coreg) 25 mg BID PO Last administered on 03/04/17 08:55; Admin Dose 25 MG; Start 03/02/17 at 21:00 Clopidogrel Bisulfate (plaVIX) 75 mg DAILY PO Last administered on 03/04/17 08 :55; Admin Dose 75 MG; Start 03/03/17 at 09:00 Gabapentin (Neurontin) 300 mg TID PO Last administered on 03/04/17 08:56; Admin Dose 300 MG; Start 03/02/17 at 21:00 Acetaminophen/ Hydrocodone Bitart ([place] ()) 1 tab Q4H PRN PO PAIN Last administered on 03/03/17 12:48; Admin Dose 1 TAB; Start 03/02/17 at 18:00 Ropinirole HCl (Requip) 0.5 mg HS PO Last administered on 03/03/17 21:50; Admin Dose 0.5 MG; Start 03/02/17 at 21:00 Atorvastatin Calcium 20 mg 20 mg HS PO Last administered on 03/03/17 21:51; Admin Dose 20 MG; Start 03/02/17 at 21:00 Piperacillin Sod/ Tazobactam Sod (Zosyn 3.375gm/ 100 ml (Pmx)) 100 ml @ 200 mls /hr Q6 IVPB Last administered on 03/04/17 05:58; Admin Dose 200 MLS/HR; Start 03/02/17 at 18:00 Enoxaparin Sodium (Lovenox) 40 mg DAILY SC Last administered on 03/04/17 09:05 ; Admin Dose 40 MG; Start 03/03/17 at 09:00 Hydromorphone HCl (Dilaudid) 1 mg Q4H PRN IV PAIN Last administered on 02:20; Admin Dose 1 MG; Start 03/02/17 at 18:00 Acetaminophen (Tylenol Tab) 650 mg Q4H PRN PO PAIN AND OR ELEVATED TEMP; Start 03/02/17 at 18:00 Losartan Potassium (Cozaar) 50 mg DAILY PO Last administered on 03/04/17 08:55 ; Admin Dose 50 MG; Start 03/03/17 at 09:00 Hydrochlorothiazide 12.5 mg 12.5 mg DAILY PO Last administered on 03/04/17 08: 55; Admin Dose 12.5 MG; Start 03/03/17 at 09:00 Vancomycin HCl/ Sodium Chloride (Vancocin/NS) 250 ml @ 83.333 mls/ hr Q12H IVPB Last administered on 03/04/17 09:09; Admin Dose 83.333 MLS/HR; Start 07/10 at 09:00 Pantoprazole (Protonix Tab) 40 mg DAILY@06 PO Last administered on 03/04/17 05 :58; Admin Dose 40 MG; Start 03/03/17 at 06:00 Al Hydrox/Mg Hydrox/Simethicone (Mag-Al Plus) 30 ml Q4H PRN PO HEART BURN; Start 03/02/17 at 22:00 RAFAEL PAK Mar 04, 2017 10:59
--- NOTE | 2017-03-04 19:12 | CONS ---
MJ UMAÑA INTAKE COUNSELOR 03/04/17 1900: Date/Time of Note Date/Time of Note DATE: 03/04/17 TIME: 18:50 Assessment/Plan Assessment/Plan Chief Complaint/Hosp Course assessment/impression: - possible erosion and OM of the tuft and undersurface of 2nd distal phalanx (X Ray finding), probably involving the fixation pin as pus was expressed at its insertion site - s/p L hammartoe repair on 01/29/2017 - s/p R hammartoe repair in 2016 - h/o skin and soft tissue infection of RLE - CAD s/p PCI - PVD - active smoker - moderate drinker - obesity - BMI 32.5 recommendations: - pending: L 2nd toe wound cx (still active and per d/w Lab, specimen was not received); JENNIFER Morfin to re-collect - continue empiric IV vancomycin and pip/tazo; will adjust his antibiotics based on the final culture results Management d/w patient, JENNIFER Morfin and Dr. Isbell Problems: Consultation Date/Type/Reason Admit Date/Time Mar 02, 2017 at 12:28 Initial Consult Date 03/03/17 Type of Consultation: Infectious Disease Referring Provider: ANGÉLICA HUSTON MD 24 HR Interval Summary Free Text/Dictation L foot swelling and redness is improving. Recently got Dilaudid for L foot pain. Had one small episode of diarrhea today. No CP, SOB, abd pain, n/v., dysuria. Exam/Review of Systems Vital Signs Vitals Vital Signs Date Time Temp Pulse Resp B/P Pulse Ox O2 Delivery O2 Flow Rate FiO2 03/04/17 07:59 98.0 66 16 115/68 98 03/02/17 14:29 Room Air Intake and Output 03/03/17 03/03/17 03/04/17 15:00 23:00 07:00 Intake Total 350 ml 1190 ml 200 ml Output Total 400 ml 700 ml Balance -50 ml 490 ml 200 ml Exam Constitutional: alert, obese, oriented, well developed Head: atraumatic, normocephalic Eyes: nl sclera Neck: supple Respiratory: clear to auscultation, normal air movement Cardiovascular: nl pulses, regular rate and rhythm Gastrointestinal: non-tender, soft Musculoskeletal: joint tenderness (L 2nd toe with a fixation pin, TTP), muscle weakness, swelling (left foot) Extremities: other (R 4th finger amputation noted), pitting pedal edema Neurological: nl mental status, nl speech, other (Bilateral feet sensation intact) Skin: rash or lesions (wound at the insertion site of fixation pin of L 2nd toe ) Results Result Diagram: 03/04/17 0740 03/04/17 0740 Results 24 hrs Laboratory Tests Test 03/04/17 07:40 White Blood Count 8.2 # Red Blood Count 4.37 L Hemoglobin 13.1 L Hematocrit 40.4 L Mean Corpuscular Volume 92.4 Mean Corpuscular Hemoglobin 30.0 Mean Corpuscular Hemoglobin Concent 32.4 Red Cell Distribution Width 12.8 Platelet Count 238 # Mean Platelet Volume 10.1 Neutrophils % 66.3 Lymphocytes % 22.0 Monocytes % 8.8 Eosinophils % 1.7 Basophils % 0.5 Nucleated Red Blood Cells % 0.0 Neutrophils # 5.4 Lymphocytes # 1.8 Monocytes # 0.7 Eosinophils # 0.1 Basophils # 0.0 Nucleated Red Blood Cells # 0.0 Erythrocyte Sedimentation Rate 20.0 Sodium Level 142 Potassium Level 4.7 Chloride Level 110 Carbon Dioxide Level 28 Anion Gap 9 Blood Urea Nitrogen 16 Creatinine 1.09 Glucose Level 106 Calcium Level 8.9 Vancomycin Level Trough 12.6 Medications Medications Current Medications Aspirin (Halfprin) 81 mg DAILY PO Last administered on 03/04/17 08:55; Admin Dose 81 MG; Start 03/03/17 at 09:00 Carisoprodol (Soma) 350 mg Q8 PRN PO MUSCLE SPASMS; Start 03/02/17 at 18:00 Carvedilol (Coreg) 25 mg BID PO Last administered on 03/04/17 08:55; Admin Dose 25 MG; Start 03/02/17 at 21:00 Clopidogrel Bisulfate (plaVIX) 75 mg DAILY PO Last administered on 03/04/17 08 :55; Admin Dose 75 MG; Start 03/03/17 at 09:00 Gabapentin (Neurontin) 300 mg TID PO Last administered on 03/04/17 12:18; Admin Dose 300 MG; Start 03/02/17 at 21:00 Acetaminophen/ Hydrocodone Bitart ([place] (10/325)) 1 tab Q4H PRN PO PAIN Last administered on 03/03/17 12:48; Admin Dose 1 TAB; Start 03/02/17 at 18:00 Ropinirole HCl (Requip) 0.5 mg HS PO Last administered on 03/03/17 21:50; Admin Dose 0.5 MG; Start 03/02/17 at 21:00 Atorvastatin Calcium 20 mg 20 mg HS PO Last administered on 03/03/17 21:51; Admin Dose 20 MG; Start 03/02/17 at 21:00 Piperacillin Sod/ Tazobactam Sod (Zosyn 3.375gm/ 100 ml (Pmx)) 100 ml @ 200 mls /hr Q6 IVPB Last administered on 03/04/17 17:29; Admin Dose 200 MLS/HR; Start 03/02/17 at 18:00 Enoxaparin Sodium (Lovenox) 40 mg DAILY SC Last administered on 03/04/17 09:05 ; Admin Dose 40 MG; Start 03/03/17 at 09:00 Hydromorphone HCl (Dilaudid) 1 mg Q4H PRN IV PAIN Last administered on 17:29; Admin Dose 1 MG; Start 03/02/17 at 18:00 Acetaminophen (Tylenol Tab) 650 mg Q4H PRN PO PAIN AND OR ELEVATED TEMP; Start 03/02/17 at 18:00 Losartan Potassium (Cozaar) 50 mg DAILY PO Last administered on 03/04/17 08:55 ; Admin Dose 50 MG; Start 03/03/17 at 09:00 Hydrochlorothiazide 12.5 mg 12.5 mg DAILY PO Last administered on 03/04/17 08: 55; Admin Dose 12.5 MG; Start 03/03/17 at 09:00 Vancomycin HCl/ Sodium Chloride (Vancocin/NS) 250 ml @ 83.333 mls/ hr Q12H IVPB Last administered on 03/04/17 09:09; Admin Dose 83.333 MLS/HR; Start 07/10 at 09:00 Pantoprazole (Protonix Tab) 40 mg DAILY@06 PO Last administered on 03/04/17 05 :58; Admin Dose 40 MG; Start 03/03/17 at 06:00 Al Hydrox/Mg Hydrox/Simethicone (Mag-Al Plus) 30 ml Q4H PRN PO HEART BURN; Start 03/02/17 at 22:00 HÉCTOR ISBELL M.D. 03/10/17 2101: Assessment/Plan Assessment/Plan Additional Assessment/Plan Akilah attestation: I discussed the management with DIAN Umaña and agree with above Exam/Review of Systems Results Result Diagram: 03/04/17 0740 03/04/17 0740 MJ UMAÑA NP Mar 04, 2017 19:00 HÉCTOR ISBELL M.D. Mar 10, 2017 21:01
[2017-03-04 19:50] VITALS: BP 155/87; RESP 18
[2017-03-04] MEDS ORDERED: NICOTINE (21 MG/24 HR) PATCH TRANSDERM SCH (21:00)
[2017-03-04] MEDS: ATORVASTATIN 20 MG TAB PO SCH (21:07)
[2017-03-04] MEDS: ROPINIROLE 0.25 MG TAB PO SCH (21:07)
[2017-03-04] MEDS: LORAZEPAM 2 MG INJ IV PRN (21:08)
[2017-03-05] MEDS: PIPER-TAZO 3.375 GM IV (PMX) 100 ML IVPB SCH ×5 (00:58→23:57)
[2017-03-05] MEDS: PANTOPRAZOLE (EC) 40 MG TAB PO SCH (05:48)
[2017-03-05 07:20] VITALS: BP 154/94; RESP 20
[2017-03-05] MEDS: HYDROCHLOROTHIAZIDE 12.5 MG CAP PO SCH (08:28)
[2017-03-05] MEDS: VANCOMYCIN 1.25 GM in SOD CHLORIDE 0.9% 250 ML IVPB SCH ×2 (08:28→20:54)
[2017-03-05] MEDS: LOSARTAN 50 MG TAB PO SCH (08:29)
[2017-03-05] MEDS: GABAPENTIN 300 MG CAP PO SCH ×3 (08:29→20:55)
[2017-03-05] MEDS: CLOPIDOGREL 75 MG TAB PO SCH (08:29)
[2017-03-05] MEDS: ASPIRIN (EC) 81 MG TAB PO SCH (08:29)
[2017-03-05] MEDS: ENOXAPARIN 40 MG/0.4 ML SYG SC SCH (09:47)
--- NOTE | 2017-03-05 09:52 | RADRPT ---
PROCEDURE: US Lower Extremity, Arterial. CLINICAL INDICATION: Ulcer. TECHNIQUE: Multiple longitudinal and transverse images of the bilateral lower extremity arteries w ere obtained with pennington scale and color Doppler imaging. COMPARISON: None. FINDINGS: Location Right (cm/s)Left (cm/s) [id number] 111 PSFA91 95 MSFA85 92 DSFA68 145 POP67, 55, 62 83, 92, 75 ATA64 98 HSB298 120 DPA74 92 Heavy arterial calcification is seen bilaterally. Triphasic wave forms predominate throughout the b ilateral lower extremities. IMPRESSION: Heavy arterial calcification of the bilateral lower extremities without evidence of hemodynamically significant stenosis or occlusion. RPTAT: HLST .Jovita Hammer MD, MD Date Time Electronically viewed and signed by .Jovita Hammer MD, on 03/05/2017 09:52 .T/
[2017-03-05] MEDS: HYDROmorphONE 1 MG/ML SYG IV PRN ×2 (11:47→17:52)
--- NOTE | 2017-03-05 14:06 | PN ---
Date/Time of Note Date/Time of Note DATE: 03/05/17 TIME: 13:53 Assessment/Plan VTE Prophylaxis VTE Prophylaxis Intervention: SCD's Lines/Catheters IV Catheter Type (from Nrsg): Peripheral IV Assessment/Plan Assessment/Plan - Left foot abscess with possible osteomyelitis and left leg cellulitis, possibly due to postoperative infection after recent left foot hammertoe surgery. Dr. Mendel skinner is following in infection disease consultation. Continue antibiotics per ID. Dr. Mcdaniel is following in podiatry consultation. - Hypertension. Continue Coreg. - Coronary artery disease status post COLLEGE ATHLETE of left circumflex. Continue aspirin and Plavix. - Dyslipidemia. Continue Plavix. - Peripheral vascular disease. Dr. Red is following in vascular surgery consultation. - Tobacco dependence, cessation is advised, patient is continued on nicotine patch. Further recommendations based on clinical course. Plan of care discussed with Dr. Yadav. Exam/Review of Systems Vital Signs Vitals Vital Signs Date Time Temp Pulse Resp B/P Pulse Ox O2 Delivery O2 Flow Rate FiO2 03/05/17 07:20 98.2 74 20 154/94 99 03/02/17 14:29 Room Air Intake and Output 03/04/17 03/04/17 03/05/17 15:00 23:00 07:00 Intake Total 500 ml 1070 ml 850 ml Output Total 925 ml 600 ml 700 ml Balance -425 ml 470 ml 150 ml Exam Constitutional: alert, oriented Neck: supple Respiratory: normal air movement Cardiovascular: nl pulses Gastrointestinal: non-tender, soft Extremities: other (Left foot swelling and erythema with pin in left second toe.) Results Result Diagram: 03/04/17 0740 03/04/17 0740 Medications Medications Current Medications Aspirin (Halfprin) 81 mg DAILY PO Last administered on 03/05/17 08:29; Admin Dose 81 MG; Start 03/03/17 at 09:00 Carisoprodol (Soma) 350 mg Q8 PRN PO MUSCLE SPASMS; Start 03/02/17 at 18:00 Carvedilol (Coreg) 25 mg BID PO Last administered on 03/05/17 08:29; Admin Dose 25 MG; Start 03/02/17 at 21:00 Clopidogrel Bisulfate (plaVIX) 75 mg DAILY PO Last administered on 03/05/17 08 :29; Admin Dose 75 MG; Start 03/03/17 at 09:00 Gabapentin (Neurontin) 300 mg TID PO Last administered on 03/05/17 12:09; Admin Dose 300 MG; Start 03/02/17 at 21:00 Acetaminophen/ Hydrocodone Bitart ([place] (10/325)) 1 tab Q4H PRN PO PAIN Last administered on 03/03/17 12:48; Admin Dose 1 TAB; Start 03/02/17 at 18:00 Ropinirole HCl (Requip) 0.5 mg HS PO Last administered on 03/04/17 21:07; Admin Dose 0.5 MG; Start 03/02/17 at 21:00 Atorvastatin Calcium 20 mg 20 mg HS PO Last administered on 03/04/17 21:07; Admin Dose 20 MG; Start 03/02/17 at 21:00 Piperacillin Sod/ Tazobactam Sod (Zosyn 3.375gm/ 100 ml (Pmx)) 100 ml @ 200 mls /hr Q6 IVPB Last administered on 03/05/17 12:10; Admin Dose 200 MLS/HR; Start 03/02/17 at 18:00 Enoxaparin Sodium (Lovenox) 40 mg DAILY SC Last administered on 03/05/17 09:47 ; Admin Dose 40 MG; Start 03/03/17 at 09:00 Hydromorphone HCl (Dilaudid) 1 mg Q4H PRN IV PAIN Last administered on 11:47; Admin Dose 1 MG; Start 03/02/17 at 18:00 Acetaminophen (Tylenol Tab) 650 mg Q4H PRN PO PAIN AND OR ELEVATED TEMP; Start 03/02/17 at 18:00 Losartan Potassium (Cozaar) 50 mg DAILY PO Last administered on 03/05/17 08:29 ; Admin Dose 50 MG; Start 03/03/17 at 09:00 Hydrochlorothiazide 12.5 mg 12.5 mg DAILY PO Last administered on 03/05/17 08: 28; Admin Dose 12.5 MG; Start 03/03/17 at 09:00 Vancomycin HCl/ Sodium Chloride (Vancocin/NS) 250 ml @ 83.333 mls/ hr Q12H IVPB Last administered on 03/05/17 08:28; Admin Dose 83.333 MLS/HR; Start 07/10 at 09:00 Pantoprazole (Protonix Tab) 40 mg DAILY@06 PO Last administered on 03/05/17 05 :48; Admin Dose 40 MG; Start 03/03/17 at 06:00 Al Hydrox/Mg Hydrox/Simethicone (Mag-Al Plus) 30 ml Q4H PRN PO HEART BURN; Start 03/02/17 at 22:00 Lorazepam (Ativan) 1 mg Q4 PRN IV ANXIETY Last administered on 03/04/17 21:08 ; Admin Dose 1 MG; Start 03/04/17 at 20:30 Nicotine (Nicoderm 21 Mg/ 24hr) 1 patch DAILY@21 TRANSDERM ; Start 03/05/17 at 21:00 TARIQ HI Mar 05, 2017 14:03
--- NOTE | 2017-03-05 17:38 | CONS ---
Date/Time of Note Date/Time of Note DATE: 03/05/17 TIME: 17:37 Assessment/Plan Assessment/Plan Problems: (1) Cellulitis Status: Acute Qualifiers: Qualified Code: L03.116 - Cellulitis of left lower extremity (2) Diabetes, polyneuropathy Consultation Date/Type/Reason Admit Date/Time Mar 02, 2017 at 12:28 Date of Consultation: Mar 03, 2017 Constitutional: chills, No diaphoresis, No febrile Eyes: no complaints ENT: no complaints Respiratory: no complaints Cardiovascular: no complaints Gastrointestinal: no complaints Genitourinary: no complaints Musculoskeletal: bone/joint pain (severe L toe and foot pain) Skin: erythema (and swelling of L dorsal foot) Neurologic: no complaints Psychological: nl mood/affect, no complaints Past Medical History Medical History: coronary artery disease, hypertension, other (PVD) Past Surgical History Past Surgical Hx: angioplasty, other (hammertoe repair) Social History Alcohol Use: occasionally Smoking Status: Current some day smoker Drug Use: none Exam/Review of Systems Vital Signs Vitals Vital Signs Date Time Temp Pulse Resp B/P Pulse Ox O2 Delivery O2 Flow Rate FiO2 03/05/17 07:20 98.2 74 20 154/94 99 03/02/17 14:29 Room Air Intake and Output 03/04/17 03/04/17 03/05/17 15:00 23:00 07:00 Intake Total 500 ml 1070 ml 850 ml Output Total 925 ml 600 ml 700 ml Balance -425 ml 470 ml 150 ml Results Result Diagram: 03/04/17 0740 03/04/17 0740 Medications Medications Current Medications Aspirin (Halfprin) 81 mg DAILY PO Last administered on 03/05/17 08:29; Admin Dose 81 MG; Start 03/03/17 at 09:00 Carisoprodol (Soma) 350 mg Q8 PRN PO MUSCLE SPASMS; Start 03/02/17 at 18:00 Carvedilol (Coreg) 25 mg BID PO Last administered on 03/05/17 08:29; Admin Dose 25 MG; Start 03/02/17 at 21:00 Clopidogrel Bisulfate (plaVIX) 75 mg DAILY PO Last administered on 03/05/17 08 :29; Admin Dose 75 MG; Start 03/03/17 at 09:00 Gabapentin (Neurontin) 300 mg TID PO Last administered on 03/05/17 12:09; Admin Dose 300 MG; Start 03/02/17 at 21:00 Acetaminophen/ Hydrocodone Bitart ([place] (10/325)) 1 tab Q4H PRN PO PAIN Last administered on 03/03/17 12:48; Admin Dose 1 TAB; Start 03/02/17 at 18:00 Ropinirole HCl (Requip) 0.5 mg HS PO Last administered on 03/04/17 21:07; Admin Dose 0.5 MG; Start 03/02/17 at 21:00 Atorvastatin Calcium 20 mg 20 mg HS PO Last administered on 03/04/17 21:07; Admin Dose 20 MG; Start 03/02/17 at 21:00 Piperacillin Sod/ Tazobactam Sod (Zosyn 3.375gm/ 100 ml (Pmx)) 100 ml @ 200 mls /hr Q6 IVPB Last administered on 03/05/17 17:29; Admin Dose 200 MLS/HR; Start 03/02/17 at 18:00 Enoxaparin Sodium (Lovenox) 40 mg DAILY SC Last administered on 03/05/17 09:47 ; Admin Dose 40 MG; Start 03/03/17 at 09:00 Hydromorphone HCl (Dilaudid) 1 mg Q4H PRN IV PAIN Last administered on 11:47; Admin Dose 1 MG; Start 03/02/17 at 18:00 Acetaminophen (Tylenol Tab) 650 mg Q4H PRN PO PAIN AND OR ELEVATED TEMP; Start 03/02/17 at 18:00 Losartan Potassium (Cozaar) 50 mg DAILY PO Last administered on 03/05/17 08:29 ; Admin Dose 50 MG; Start 03/03/17 at 09:00 Hydrochlorothiazide 12.5 mg 12.5 mg DAILY PO Last administered on 03/05/17 08: 28; Admin Dose 12.5 MG; Start 03/03/17 at 09:00 Vancomycin HCl/ Sodium Chloride (Vancocin/NS) 250 ml @ 83.333 mls/ hr Q12H IVPB Last administered on 03/05/17 08:28; Admin Dose 83.333 MLS/HR; Start 07/10 at 09:00 Pantoprazole (Protonix Tab) 40 mg DAILY@06 PO Last administered on 03/05/17 05 :48; Admin Dose 40 MG; Start 03/03/17 at 06:00 Al Hydrox/Mg Hydrox/Simethicone (Mag-Al Plus) 30 ml Q4H PRN PO HEART BURN; Start 03/02/17 at 22:00 Lorazepam (Ativan) 1 mg Q4 PRN IV ANXIETY Last administered on 03/04/17 21:08 ; Admin Dose 1 MG; Start 03/04/17 at 20:30 Nicotine (Nicoderm 21 Mg/ 24hr) 1 patch DAILY@21 TRANSDERM ; Start 03/05/17 at 21:00 JULIUS RUSHING DPM Mar 05, 2017 17:38
--- NOTE | 2017-03-05 17:44 | PN ---
Date/Time of Note Date/Time of Note DATE: 03/05/17 TIME: 17:44 Assessment/Plan Lines/Catheters IV Catheter Type (from Nrsg): Peripheral IV Assessment/Plan Problems: (1) Cellulitis Status: Acute Qualifiers: Site of cellulitis: extremity Site of cellulitis of extremity: lower extremity Laterality: left Qualified Code: L03.116 - Cellulitis of left lower extremity (2) Diabetes, polyneuropathy Assessment/Plan Kwire was removed. Dressing applied. Patient to continue IVAbx. PWB left foot to continue with post op shoe. Exam/Review of Systems Vital Signs Vitals Vital Signs Date Time Temp Pulse Resp B/P Pulse Ox O2 Delivery O2 Flow Rate FiO2 03/05/17 07:20 98.2 74 20 154/94 99 03/02/17 14:29 Room Air Intake and Output 03/04/17 03/04/17 03/05/17 15:00 23:00 07:00 Intake Total 500 ml 1070 ml 850 ml Output Total 925 ml 600 ml 700 ml Balance -425 ml 470 ml 150 ml Results Result Diagram: 03/04/17 0740 03/04/17 0740 JULIUS RUSHING DPM Mar 05, 2017 17:44
--- NOTE | 2017-03-05 19:43 | CONS ---
MJ UMAÑA NP 03/05/17 1943: Date/Time of Note Date/Time of Note DATE: 03/05/17 TIME: 19:43 Assessment/Plan Assessment/Plan Chief Complaint/Hosp Course assessment/impression: - possible erosion and OM of the tuft and undersurface of 2nd distal phalanx (X Ray finding), probably involving the fixation pin as pus was expressed at its insertion site - s/p L hammartoe repair on 01/29/2017 - s/p R hammartoe repair in 2016 - h/o skin and soft tissue infection of RLE - CAD s/p PCI - PVD - active smoker - moderate drinker - obesity - BMI 32.5 recommendations: - pending: L 2nd toe wound cx (negative to date); wound cx collected on 2016 apparently got lost. - continue empiric IV vancomycin and pip/tazo; will adjust his antibiotics based on the final culture results - will need 4-6 weeks of abx Management d/w patient, pt's , RN Navjot and Dr. Oglesby Problems: Consultation Date/Type/Reason Admit Date/Time Mar 02, 2017 at 12:28 Initial Consult Date 03/03/17 Type of Consultation: Infectious Disease Referring Provider: ANGÉLICA HUSTON MD 24 HR Interval Summary Free Text/Dictation Dr. Mcdaniel removed fixation pin from L 2nd toe and pain has significantly improved. Pt reports left foot redness and swelling continue to improve. Denies CP, SOB, abd pain, n/v/d, dysuria. Exam/Review of Systems Vital Signs Vitals Vital Signs Date Time Temp Pulse Resp B/P Pulse Ox O2 Delivery O2 Flow Rate FiO2 03/05/17 07:20 98.2 74 20 154/94 99 03/02/17 14:29 Room Air Intake and Output 03/04/17 03/04/17 03/05/17 15:00 23:00 07:00 Intake Total 500 ml 1070 ml 850 ml Output Total 925 ml 600 ml 700 ml Balance -425 ml 470 ml 150 ml Exam Constitutional: alert, obese, oriented, well developed Head: atraumatic, normocephalic Eyes: nl sclera Neck: supple Respiratory: clear to auscultation, normal air movement Cardiovascular: nl pulses, regular rate and rhythm Gastrointestinal: non-tender, soft Musculoskeletal: joint tenderness (L 2nd toe with TTP), muscle weakness, swelling (left foot) Extremities: other (R 4th finger amputation noted), pitting pedal edema Neurological: nl mental status, nl speech, other (Bilateral feet sensation intact) Skin: rash or lesions (cellulitis resolving on L foot) Results Result Diagram: 03/04/17 0740 03/04/17 0740 Medications Medications Current Medications Aspirin (Halfprin) 81 mg DAILY PO Last administered on 03/05/17 08:29; Admin Dose 81 MG; Start 03/03/17 at 09:00 Carisoprodol (Soma) 350 mg Q8 PRN PO MUSCLE SPASMS; Start 03/02/17 at 18:00 Carvedilol (Coreg) 25 mg BID PO Last administered on 03/05/17 08:29; Admin Dose 25 MG; Start 03/02/17 at 21:00 Clopidogrel Bisulfate (plaVIX) 75 mg DAILY PO Last administered on 03/05/17 08 :29; Admin Dose 75 MG; Start 03/03/17 at 09:00 Gabapentin (Neurontin) 300 mg TID PO Last administered on 03/05/17 12:09; Admin Dose 300 MG; Start 03/02/17 at 21:00 Acetaminophen/ Hydrocodone Bitart ([place] (10/325)) 1 tab Q4H PRN PO PAIN Last administered on 03/03/17 12:48; Admin Dose 1 TAB; Start 03/02/17 at 18:00 Ropinirole HCl (Requip) 0.5 mg HS PO Last administered on 03/04/17 21:07; Admin Dose 0.5 MG; Start 03/02/17 at 21:00 Atorvastatin Calcium 20 mg 20 mg HS PO Last administered on 03/04/17 21:07; Admin Dose 20 MG; Start 03/02/17 at 21:00 Piperacillin Sod/ Tazobactam Sod (Zosyn 3.375gm/ 100 ml (Pmx)) 100 ml @ 200 mls /hr Q6 IVPB Last administered on 03/05/17 17:29; Admin Dose 200 MLS/HR; Start 03/02/17 at 18:00 Enoxaparin Sodium (Lovenox) 40 mg DAILY SC Last administered on 03/05/17 09:47 ; Admin Dose 40 MG; Start 03/03/17 at 09:00 Hydromorphone HCl (Dilaudid) 1 mg Q4H PRN IV PAIN Last administered on 17:52; Admin Dose 1 MG; Start 03/02/17 at 18:00 Acetaminophen (Tylenol Tab) 650 mg Q4H PRN PO PAIN AND OR ELEVATED TEMP; Start 03/02/17 at 18:00 Losartan Potassium (Cozaar) 50 mg DAILY PO Last administered on 03/05/17 08:29 ; Admin Dose 50 MG; Start 03/03/17 at 09:00 Hydrochlorothiazide 12.5 mg 12.5 mg DAILY PO Last administered on 03/05/17 08: 28; Admin Dose 12.5 MG; Start 03/03/17 at 09:00 Vancomycin HCl/ Sodium Chloride (Vancocin/NS) 250 ml @ 83.333 mls/ hr Q12H IVPB Last administered on 03/05/17 08:28; Admin Dose 83.333 MLS/HR; Start 07/10 at 09:00 Pantoprazole (Protonix Tab) 40 mg DAILY@06 PO Last administered on 03/05/17 05 :48; Admin Dose 40 MG; Start 03/03/17 at 06:00 Al Hydrox/Mg Hydrox/Simethicone (Mag-Al Plus) 30 ml Q4H PRN PO HEART BURN; Start 03/02/17 at 22:00 Lorazepam (Ativan) 1 mg Q4 PRN IV ANXIETY Last administered on 03/04/17 21:08 ; Admin Dose 1 MG; Start 03/04/17 at 20:30 Nicotine (Nicoderm 21 Mg/ 24hr) 1 patch DAILY@21 TRANSDERM ; Start 03/05/17 at 21:00 HÉCTOR NO M.D. 03/10/17 2154: Assessment/Plan Assessment/Plan Additional Assessment/Plan Akilah attestation: I discussed the management with DIAN Umaña and agree with above Exam/Review of Systems Results Result Diagram: 03/04/17 0740 03/04/17 0740 MJ UMAÑA NP Mar 05, 2017 19:43 HÉCTOR NO M.D. Mar 10, 2017 21:54
[2017-03-05 19:52] VITALS: BP 145/81; RESP 20
--- NOTE | 2017-03-05 19:52 | CONS ---
Date/Time of Note Date/Time of Note DATE: 03/05/17 TIME: 19:52 Assessment/Plan Assessment/Plan Chief Complaint/Hosp Course assessment/impression: - possible erosion and OM of the tuft and undersurface of 2nd distal phalanx (X Ray finding), probably involving the fixation pin as pus was expressed at its insertion site - s/p L hammartoe repair on 01/29/2017 - s/p R hammartoe repair in 2016 - h/o skin and soft tissue infection of RLE - CAD s/p PCI - PVD - active smoker - moderate drinker - obesity - BMI 32.5 recommendations: - pending: L 2nd toe wound cx (still active and per d/w Lab, specimen was not received); JENNIFER Morfin to re-collect - continue empiric IV vancomycin and pip/tazo; will adjust his antibiotics based on the final culture results Management d/w patient, JENNIFER Morfin and Dr. Isbell Problems: Consultation Date/Type/Reason Admit Date/Time Mar 02, 2017 at 12:28 Initial Consult Date 03/03/17 Type of Consultation: Infectious Disease Referring Provider: ANGÉLICA HUSTON MD Exam/Review of Systems Vital Signs Vitals Vital Signs Date Time Temp Pulse Resp B/P Pulse Ox O2 Delivery O2 Flow Rate FiO2 03/05/17 07:20 98.2 74 20 154/94 99 03/02/17 14:29 Room Air Intake and Output 03/04/17 03/04/17 03/05/17 14:59 22:59 06:59 Intake Total 500 ml 1070 ml 850 ml Output Total 925 ml 600 ml 700 ml Balance -425 ml 470 ml 150 ml Results Result Diagram: 03/04/17 0740 03/04/17 0740 Medications Medications Current Medications Aspirin (Halfprin) 81 mg DAILY PO Last administered on 03/05/17 08:29; Admin Dose 81 MG; Start 03/03/17 at 09:00 Carisoprodol (Soma) 350 mg Q8 PRN PO MUSCLE SPASMS; Start 03/02/17 at 18:00 Carvedilol (Coreg) 25 mg BID PO Last administered on 03/05/17 08:29; Admin Dose 25 MG; Start 03/02/17 at 21:00 Clopidogrel Bisulfate (plaVIX) 75 mg DAILY PO Last administered on 03/05/17 08 :29; Admin Dose 75 MG; Start 03/03/17 at 09:00 Gabapentin (Neurontin) 300 mg TID PO Last administered on 03/05/17 12:09; Admin Dose 300 MG; Start 03/02/17 at 21:00 Acetaminophen/ Hydrocodone Bitart ([place] (10/325)) 1 tab Q4H PRN PO PAIN Last administered on 03/03/17 12:48; Admin Dose 1 TAB; Start 03/02/17 at 18:00 Ropinirole HCl (Requip) 0.5 mg HS PO Last administered on 03/04/17 21:07; Admin Dose 0.5 MG; Start 03/02/17 at 21:00 Atorvastatin Calcium 20 mg 20 mg HS PO Last administered on 03/04/17 21:07; Admin Dose 20 MG; Start 03/02/17 at 21:00 Piperacillin Sod/ Tazobactam Sod (Zosyn 3.375gm/ 100 ml (Pmx)) 100 ml @ 200 mls /hr Q6 IVPB Last administered on 03/05/17 17:29; Admin Dose 200 MLS/HR; Start 03/02/17 at 18:00 Enoxaparin Sodium (Lovenox) 40 mg DAILY SC Last administered on 03/05/17 09:47 ; Admin Dose 40 MG; Start 03/03/17 at 09:00 Hydromorphone HCl (Dilaudid) 1 mg Q4H PRN IV PAIN Last administered on 17:52; Admin Dose 1 MG; Start 03/02/17 at 18:00 Acetaminophen (Tylenol Tab) 650 mg Q4H PRN PO PAIN AND OR ELEVATED TEMP; Start 03/02/17 at 18:00 Losartan Potassium (Cozaar) 50 mg DAILY PO Last administered on 03/05/17 08:29 ; Admin Dose 50 MG; Start 03/03/17 at 09:00 Hydrochlorothiazide 12.5 mg 12.5 mg DAILY PO Last administered on 03/05/17 08: 28; Admin Dose 12.5 MG; Start 03/03/17 at 09:00 Vancomycin HCl/ Sodium Chloride (Vancocin/NS) 250 ml @ 83.333 mls/ hr Q12H IVPB Last administered on 03/05/17 08:28; Admin Dose 83.333 MLS/HR; Start 07/10 at 09:00 Pantoprazole (Protonix Tab) 40 mg DAILY@06 PO Last administered on 03/05/17 05 :48; Admin Dose 40 MG; Start 03/03/17 at 06:00 Al Hydrox/Mg Hydrox/Simethicone (Mag-Al Plus) 30 ml Q4H PRN PO HEART BURN; Start 03/02/17 at 22:00 Lorazepam (Ativan) 1 mg Q4 PRN IV ANXIETY Last administered on 03/04/17 21:08 ; Admin Dose 1 MG; Start 03/04/17 at 20:30 Nicotine (Nicoderm 21 Mg/ 24hr) 1 patch DAILY@21 TRANSDERM ; Start 03/05/17 at 21:00 MJ UMAÑA NP Mar 05, 2017 19:52
[2017-03-05] MEDS: ROPINIROLE 0.25 MG TAB PO SCH (20:55)
[2017-03-05] MEDS: ATORVASTATIN 20 MG TAB PO SCH (20:55)
[2017-03-05] MEDS: NICOTINE (21 MG/24 HR) PATCH TRANSDERM SCH (20:56)
[2017-03-05] MEDS: LORAZEPAM 2 MG INJ IV PRN (21:06)
--- NOTE | 2017-03-05 22:57 | PN ---
Date/Time of Note Date/Time of Note DATE: 03/05/17 TIME: 22:50 Assessment/Plan Lines/Catheters IV Catheter Type (from [facility]): Peripheral IV Assessment/Plan Chief Complaint/Hosp Course -Bilateral lower extremity atherosclerosis with left lower extremity nonhealing second toe. It seems the patient has some component of atherosclerotic disease as what he describes as short distance claudication. Upon noninvasive vascular studies no flow limiting stenosis was identified, however will follow pts progress as outpt for vascular surveillance and his claudication. no further intervention at this time. -Bilateral lower extremity venous insufficiency: will schedule the patient to undergo reflux studies as an outpt -Optimize vascular status (BP meds, diet, nutrition, exercise, sugar control, antiplatelet.) -Recommend weight loss and tobacco cessation. -Discussed findings, plan, and management with the patient, and he understands. -Thank you for allowing us to partake in the care of your patient. Please call with any questions. Problems: Subjective 24 Hr Interval Summary no new vascular events overnight Exam/Review of Systems Vital Signs Vitals Vital Signs Date Time Temp Pulse Resp B/P Pulse Ox O2 Delivery O2 Flow Rate FiO2 03/05/17 19:52 98.4 74 20 145/81 99 03/02/17 14:29 Room Air Intake and Output 03/04/17 03/04/17 03/05/17 15:00 23:00 07:00 Intake Total 500 ml 1070 ml 850 ml Output Total 925 ml 600 ml 700 ml Balance -425 ml 470 ml 150 ml Exam Free Text/Dictation GENERAL: Alert and oriented x3, PULMONARY: Clear to auscultation bilaterally CARDIOVASCULAR: S1, S2 present. ABDOMEN: Soft, nontender, nondistended. Bowel sounds positive. Truncal obesity. RIGHT LOWER EXTREMITY: Palpable femoral pulse. Faint pedal pulse. Motor, sensory intact. Cap refill 3 to 4 seconds. No surgical scars. LEFT LOWER EXTREMITY: Palpable femoral pulse. No pedal pulse (possibly secondary to edema.) Motor, sensory intact. Cap refill 3 seconds. Left second toe with pin intact-removed since last visit, decreased erythema Results Result Diagram: 03/04/17 0740 03/04/17 0740 WILIAN CHRISTINE MD Mar 05, 2017 22:57
--- NOTE | 2017-03-06 01:30 | RADRPT ---
PROCEDURE: X-ray left foot CLINICAL INDICATION: Postoperative for removal of K-wire fixation in the left second toe. TECHNIQUE: 3 views left foot. COMPARISON: 03/02/2017. FINDINGS: Interval removal of K-wire fixation at the left second toe. Mild joint space narrowing at the second PIP joint. No evident acute fracture. Soft tissue swelling over the left second toe. IMPRESSION: No acute fracture. RPTAT: [facility] Physician Omayra Date Time Electronically viewed and signed by Willam Lezama Physician on 03/06/2017 01:30 RS/
[2017-03-06 05:49] LABS: ADD SCAN DIFF NO
[2017-03-06 05:51] LABS: BASOPHILS % 0.3 % (0.0-2.0); EOSINOPHILS # 0.2 10^3/ul (0.0-0.5); EOSINOPHILS % 1.6 % (0.0-7.0); HEMATOCRIT 38.1 % (42.0-52.0); HEMOGLOBIN 12.4 g/dl (14.0-18.0); LYMPHOCYTES # 1.7 10^3/ul (0.8-2.9); LYMPHOCYTES % 14.8 % (15.0-51.0); MEAN CORPUSCULAR HEMOGLOBIN 29.4 pg (29.0-33.0); MEAN CORPUSCULAR HGB CONC 32.5 g/dl (32.0-37.0); MEAN CORPUSCULAR VOLUME 90.3 fl (82.0-101.0); MEAN PLATELET VOLUME 10.4 fl (7.4-10.4); MONOCYTE # 1.1 10^3/ul (0.3-0.9); MONOCYTES % 9.8 % (0.0-11.0); NEUTROPHIL # 8.4 10^3/ul (1.6-7.5); NEUTROPHILS % 72.9 % (39.0-77.0); PLATELET COUNT 218 10^3/UL (140-415); RED BLOOD COUNT 4.22 10^6/ul (4.70-6.10); RED CELL DISTRIBUTION WIDTH 12.9 % (11.5-14.5); WHITE BLOOD COUNT 11.5 10^3/ul (4.8-10.8)
[2017-03-06] MEDS: PIPER-TAZO 3.375 GM IV (PMX) 100 ML IVPB SCH ×3 (05:55→18:21)
[2017-03-06] MEDS: PANTOPRAZOLE (EC) 40 MG TAB PO SCH (05:56)
[2017-03-06 06:42] LABS: CREATININE 1.11 mg/dl (0.61-1.24)
[2017-03-06 06:47] LABS: CREATININE 1.11 mg/dl (0.61-1.24); POTASSIUM 4.1 mmol/L (3.5-5.1)
[2017-03-06 07:32] VITALS: BP 142/88; RESP 20
[2017-03-06] MEDS: ASPIRIN (EC) 81 MG TAB PO SCH (09:16)
[2017-03-06] MEDS: GABAPENTIN 300 MG CAP PO SCH ×3 (09:16→21:22)
[2017-03-06] MEDS: VANCOMYCIN 1.25 GM in SOD CHLORIDE 0.9% 250 ML IVPB SCH ×2 (09:16→21:20)
[2017-03-06] MEDS: LOSARTAN 50 MG TAB PO SCH (09:17)
[2017-03-06] MEDS: HYDROCHLOROTHIAZIDE 12.5 MG CAP PO SCH (09:17)
[2017-03-06] MEDS: CLOPIDOGREL 75 MG TAB PO SCH (09:17)
[2017-03-06] MEDS: ENOXAPARIN 40 MG/0.4 ML SYG SC SCH (09:40)
[2017-03-06] MEDS ORDERED: LORAZEPAM 1 MG TAB PO PRN (16:30)
--- NOTE | 2017-03-06 17:00 | PN ---
Date/Time of Note Date/Time of Note DATE: 03/06/17 TIME: 16:57 Assessment/Plan VTE Prophylaxis VTE Prophylaxis Intervention: SCD's Lines/Catheters IV Catheter Type (from Nrs): Peripheral IV Urinary Cath still in place: No Assessment/Plan Chief Complaint/Hosp Course Patient denies any fever pain is well controlled, patient agreed to PICC line insertion for home antibiotics, status post pin removal by podiatry yesterday. Assessment/Plan - Left foot abscess with possible osteomyelitis and left leg cellulitis, possibly due to postoperative infection after recent left foot hammertoe surgery. Dr. Mendel skinner is following in infection disease consultation. Continue antibiotics per ID. Dr. Mcdaniel is following in podiatry consultation. - Hypertension. Continue Coreg. - Coronary artery disease status post [employer] of left circumflex. Continue aspirin and Plavix. - Dyslipidemia. Continue Plavix. - Peripheral vascular disease. Dr. Red is following in vascular surgery consultation. - Tobacco dependence, cessation is advised, patient is continued on nicotine patch. Further recommendations based on clinical course. Plan of care discussed with Dr. Yadav. Problems: Exam/Review of Systems Vital Signs Vitals Vital Signs Date Time Temp Pulse Resp B/P Pulse Ox O2 Delivery O2 Flow Rate FiO2 03/06/17 07:32 98.4 65 20 142/88 98 03/02/17 14:29 Room Air Intake and Output 03/05/17 03/05/17 03/06/17 15:00 23:00 07:00 Intake Total 100 ml 350 ml 650 ml Output Total 400 ml Balance 100 ml 350 ml 250 ml Exam Constitutional: alert, oriented Neck: supple Respiratory: normal air movement Cardiovascular: nl pulses Gastrointestinal: non-tender, soft Extremities: other (Left foot swelling and erythema, improved) Results Result Diagram: 03/06/17 0510 03/06/17 0510 Results 24 hrs Laboratory Tests Test 03/06/17 05:10 White Blood Count 11.5 #H Red Blood Count 4.22 L Hemoglobin 12.4 L Hematocrit 38.1 L Mean Corpuscular Volume 90.3 Mean Corpuscular Hemoglobin 29.4 Mean Corpuscular Hemoglobin Concent 32.5 Red Cell Distribution Width 12.9 Platelet Count 218 Mean Platelet Volume 10.4 Neutrophils % 72.9 Lymphocytes % 14.8 L Monocytes % 9.8 Eosinophils % 1.6 Basophils % 0.3 Nucleated Red Blood Cells % 0.0 Neutrophils # 8.4 H Lymphocytes # 1.7 Monocytes # 1.1 H Eosinophils # 0.2 Basophils # 0.0 Nucleated Red Blood Cells # 0.0 Sodium Level 142 Potassium Level 4.1 Chloride Level 108 Carbon Dioxide Level 28 Anion Gap 10 Blood Urea Nitrogen 17 Creatinine 1.11 Glucose Level 101 Calcium Level 9.0 Medications Medications Current Medications Aspirin (Halfprin) 81 mg DAILY PO Last administered on 03/06/17 09:16; Admin Dose 81 MG; Start 03/03/17 at 09:00 Carisoprodol (Soma) 350 mg Q8 PRN PO MUSCLE SPASMS; Start 03/02/17 at 18:00 Carvedilol (Coreg) 25 mg BID PO Last administered on 03/06/17 09:17; Admin Dose 25 MG; Start 03/02/17 at 21:00 Clopidogrel Bisulfate (plaVIX) 75 mg DAILY PO Last administered on 03/06/17 09 :17; Admin Dose 75 MG; Start 03/03/17 at 09:00 Gabapentin (Neurontin) 300 mg TID PO Last administered on 03/06/17 12:37; Admin Dose 300 MG; Start 03/02/17 at 21:00 Acetaminophen/ Hydrocodone Bitart ([place] (10/325)) 1 tab Q4H PRN PO PAIN Last administered on 03/03/17 12:48; Admin Dose 1 TAB; Start 03/02/17 at 18:00 Ropinirole HCl (Requip) 0.5 mg HS PO Last administered on 03/05/17 20:55; Admin Dose 0.5 MG; Start 03/02/17 at 21:00 Atorvastatin Calcium 20 mg 20 mg HS PO Last administered on 03/05/17 20:55; Admin Dose 20 MG; Start 03/02/17 at 21:00 Piperacillin Sod/ Tazobactam Sod (Zosyn 3.375gm/ 100 ml (Pmx)) 100 ml @ 200 mls /hr Q6 IVPB Last administered on 03/06/17 12:37; Admin Dose 200 MLS/HR; Start 03/02/17 at 18:00 Enoxaparin Sodium (Lovenox) 40 mg DAILY SC Last administered on 03/06/17 09:40 ; Admin Dose 40 MG; Start 03/03/17 at 09:00 Hydromorphone HCl (Dilaudid) 1 mg Q4H PRN IV PAIN Last administered on 17:52; Admin Dose 1 MG; Start 03/02/17 at 18:00 Acetaminophen (Tylenol Tab) 650 mg Q4H PRN PO PAIN AND OR ELEVATED TEMP; Start 03/02/17 at 18:00 Losartan Potassium (Cozaar) 50 mg DAILY PO Last administered on 03/06/17 09:17 ; Admin Dose 50 MG; Start 03/03/17 at 09:00 Hydrochlorothiazide 12.5 mg 12.5 mg DAILY PO Last administered on 03/06/17 09: 17; Admin Dose 12.5 MG; Start 03/03/17 at 09:00 Vancomycin HCl/ Sodium Chloride (Vancocin/NS) 250 ml @ 83.333 mls/ hr Q12H IVPB Last administered on 03/06/17 09:16; Admin Dose 83.333 MLS/HR; Start 07/10 at 09:00 Pantoprazole (Protonix Tab) 40 mg DAILY@06 PO Last administered on 03/06/17 05 :56; Admin Dose 40 MG; Start 03/03/17 at 06:00 Al Hydrox/Mg Hydrox/Simethicone (Mag-Al Plus) 30 ml Q4H PRN PO HEART BURN; Start 03/02/17 at 22:00 Nicotine (Nicoderm 21 Mg/ 24hr) 1 patch DAILY@21 TRANSDERM Last administered on 03/05/17 20:56; Admin Dose 1 PATCH; Start 03/05/17 at 21:00 Miscellaneous Information (*Rx Drug Level Order Reminder*) VANCO TROUGH @ 0, 800 ON... ONCE ONCE XX ; Start 03/07/17 at 08:00; Stop 03/07/17 at 08:01 Lorazepam (Ativan) 1 mg Q4H PRN PO ANXIETY; Start 03/06/17 at 16:30 TARIQ HI Mar 06, 2017 17:00
[2017-03-06] MEDS ORDERED: LIDOCAINE 1% (MPF) 5 ML VIAL SC ONE (17:30)
[2017-03-06 19:37] VITALS: BP 136/83; RESP 18
[2017-03-06] MEDS: ATORVASTATIN 20 MG TAB PO SCH (21:22)
[2017-03-06] MEDS: ROPINIROLE 0.25 MG TAB PO SCH (21:22)
[2017-03-06] MEDS: NICOTINE (21 MG/24 HR) PATCH TRANSDERM SCH (21:23)
[2017-03-07] MEDS: PIPER-TAZO 3.375 GM IV (PMX) 100 ML IVPB SCH ×4 (00:26→18:31)
[2017-03-07] MEDS: PANTOPRAZOLE (EC) 40 MG TAB PO SCH (05:45)
[2017-03-07] MEDS: ACETAMINOPHEN 325 MG TAB PO PRN ×2 (05:47→13:23)
[2017-03-07 07:45] VITALS: BP 135/82; RESP 16
[2017-03-07 08:59] LABS: ADD SCAN DIFF NO
[2017-03-07 09:05] LABS: BASOPHILS % 0.4 % (0.0-2.0); EOSINOPHILS # 0.2 10^3/ul (0.0-0.5); EOSINOPHILS % 2.1 % (0.0-7.0); HEMATOCRIT 40.4 % (42.0-52.0); HEMOGLOBIN 13.1 g/dl (14.0-18.0); LYMPHOCYTES # 1.5 10^3/ul (0.8-2.9); LYMPHOCYTES % 13.3 % (15.0-51.0); MEAN CORPUSCULAR HEMOGLOBIN 29.2 pg (29.0-33.0); MEAN CORPUSCULAR HGB CONC 32.4 g/dl (32.0-37.0); MEAN PLATELET VOLUME 10.5 fl (7.4-10.4); MONOCYTE # 0.8 10^3/ul (0.3-0.9); MONOCYTES % 7.1 % (0.0-11.0); NEUTROPHIL # 8.3 10^3/ul (1.6-7.5); NEUTROPHILS % 76.4 % (39.0-77.0); PLATELET COUNT 238 10^3/UL (140-415); RED BLOOD COUNT 4.49 10^6/ul (4.70-6.10); RED CELL DISTRIBUTION WIDTH 12.9 % (11.5-14.5); WHITE BLOOD COUNT 10.9 10^3/ul (4.8-10.8)
[2017-03-07 09:41] LABS: CALCIUM 9.2 mg/dl (8.4-10.2); CREATININE 1.1 mg/dl (0.61-1.24); POTASSIUM 4.1 mmol/L (3.5-5.1)
[2017-03-07] MEDS: GABAPENTIN 300 MG CAP PO SCH ×3 (10:24→20:23)
[2017-03-07] MEDS: LOSARTAN 50 MG TAB PO SCH (10:24)
[2017-03-07] MEDS: CLOPIDOGREL 75 MG TAB PO SCH (10:24)
[2017-03-07] MEDS: HYDROCHLOROTHIAZIDE 12.5 MG CAP PO SCH (10:25)
[2017-03-07] MEDS: VANCOMYCIN 1.25 GM in SOD CHLORIDE 0.9% 250 ML IVPB SCH (10:36)
--- NOTE | 2017-03-07 13:00 | CONS ---
Date/Time of Note Date/Time of Note DATE: 03/07/17 TIME: 12:54 Consult Date/Type/Reason Admit Date/Time Mar 02, 2017 at 12:28 Initial Consult Date 03/03/17 Type of Consultation: INFECTIOUS DISEASE Ordering Provider: ANGÉLICA HUSTON MD Subjective patient states "painful left foot > in 2nd toe upon applying pressure or touch otherwise fine" Objective Vital Signs Date Time Temp Pulse Resp B/P Pulse Ox O2 Delivery O2 Flow Rate FiO2 03/07/17 07:45 98.5 66 16 135/82 97 Intake and Output 03/06/17 03/06/17 03/07/17 15:00 23:00 07:00 Intake Total 350 ml 1900 ml 850 ml Output Total 1700 ml Balance 350 ml 200 ml 850 ml Exam Constitutional: well developed male lying in bed in no acute distress Head: atraumatic, normocephalic Eyes: normal sclera Neck: supple Respiratory: clear to auscultation Cardiovascular: regular rate and rhythm, palpable pulses Gastrointestinal: soft, obese, non-tender, non-distended, +bowel sounds Musculoskeletal: warm, dry, normal turgor, left 2nd toe with TTP Extremities: moves all extremities, 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 Neurological: speech clear, alert and oriented Skin: cellulitis resolving left foot, dressing left 2nd toe, no odor or visible drainage Results/Medications Result Diagram: 03/07/1782703/07/1728 Results 24 hrs Laboratory Tests Test 03/07/17 08:28 White Blood Count 10.9 H Red Blood Count 4.49 L Hemoglobin 13.1 L Hematocrit 40.4 L Mean Corpuscular Volume 90.0 Mean Corpuscular Hemoglobin 29.2 Mean Corpuscular Hemoglobin Concent 32.4 Red Cell Distribution Width 12.9 Platelet Count 238 Mean Platelet Volume 10.5 H Neutrophils % 76.4 Lymphocytes % 13.3 L Monocytes % 7.1 Eosinophils % 2.1 Basophils % 0.4 Nucleated Red Blood Cells % 0.0 Neutrophils # 8.3 H Lymphocytes # 1.5 Monocytes # 0.8 Eosinophils # 0.2 Basophils # 0.0 Nucleated Red Blood Cells # 0.0 Sodium Level 140 Potassium Level 4.1 Chloride Level 105 Carbon Dioxide Level 27 Anion Gap 12 Blood Urea Nitrogen 16 Creatinine 1.10 Glucose Level 137 Calcium Level 9.2 Vancomycin Level Trough 11.5 Medications Current Medications Aspirin (Halfprin) 81 mg DAILY PO Last administered on 03/06/17 09:16; Admin Dose 81 MG; Start 03/03/17 at 09:00 Carisoprodol (Soma) 350 mg Q8 PRN PO MUSCLE SPASMS; Start 03/02/17 at 18:00 Carvedilol (Coreg) 25 mg BID PO Last administered on 03/07/17 10:26; Admin Dose 25 MG; Start 03/02/17 at 21:00 Clopidogrel Bisulfate (plaVIX) 75 mg DAILY PO Last administered on 03/07/17 10 :24; Admin Dose 75 MG; Start 03/03/17 at 09:00 Gabapentin (Neurontin) 300 mg TID PO Last administered on 03/07/17 10:24; Admin Dose 300 MG; Start 03/02/17 at 21:00 Acetaminophen/ Hydrocodone Bitart ([place] (10325)) 1 tab Q4H PRN PO PAIN Last administered on 03/03/17 12:48; Admin Dose 1 TAB; Start 03/02/17 at 18:00 Ropinirole HCl (Requip) 0.5 mg HS PO Last administered on 03/06/17 21:22; Admin Dose 0.5 MG; Start 03/02/17 at 21:00 Atorvastatin Calcium 20 mg 20 mg HS PO Last administered on 03/06/17 21:22; Admin Dose 20 MG; Start 03/02/17 at 21:00 Piperacillin Sod/ Tazobactam Sod (Zosyn 3.375gm/ 100 ml (Pmx)) 100 ml @ 200 mls /hr Q6 IVPB Last administered on 03/07/17 05:45; Admin Dose 200 MLS/HR; Start 03/02/17 at 18:00 Enoxaparin Sodium (Lovenox) 40 mg DAILY SC Last administered on 03/06/17 09:40 ; Admin Dose 40 MG; Start 03/03/17 at 09:00 Hydromorphone HCl (Dilaudid) 1 mg Q4H PRN IV PAIN Last administered on 17:52; Admin Dose 1 MG; Start 03/02/17 at 18:00 Acetaminophen (Tylenol Tab) 650 mg Q4H PRN PO PAIN AND OR ELEVATED TEMP Last administered on 03/07/17 05:47; Admin Dose 650 MG; Start 03/02/17 at 18:00 Losartan Potassium (Cozaar) 50 mg DAILY PO Last administered on 03/07/17 10:24 ; Admin Dose 50 MG; Start 03/03/17 at 09:00 Hydrochlorothiazide (Hydrochlorothiazide) 12.5 mg DAILY PO Last administered on 03/07/17 10:25; Admin Dose 12.5 MG; Start 03/03/17 at 09:00 Pantoprazole (Protonix Tab) 40 mg DAILY@06 PO Last administered on 03/07/17 05 :45; Admin Dose 40 MG; Start 03/03/17 at 06:00 Al Hydrox/Mg Hydrox/Simethicone (Mag-Al Plus) 30 ml Q4H PRN PO HEART BURN; Start 03/02/17 at 22:00 Nicotine (Nicoderm 21 Mg/ 24hr) 1 patch DAILY@21 TRANSDERM Last administered on 03/06/17 21:23; Admin Dose 1 PATCH; Start 03/05/17 at 21:00 Lorazepam 1 mg 1 mg Q4H PRN PO ANXIETY; Start 03/06/17 at 16:30 Vancomycin HCl (Vancocin) 250 ml @ 125 mls/hr Q8H IVPB ; Start 03/07/17 at 20: 00 Miscellaneous Information (*Rx Drug Level Order Reminder*) VANCO TROUGH ON 02/22... ONCE ONCE XX ; Start 03/08/17 at 19:00; Stop 03/08/17 at 19:01 Assessment/Plan Chief Complaint/Hosp Course - possible erosion and OM of the tuft and undersurface of 2nd distal phalanx (X Ray finding), probably involving the fixation pin as pus was expressed at its insertion site - s/p L hammartoe repair on 01/29/2017 - s/p R hammartoe repair in 2016 - h/o skin and soft tissue infection of RLE - CAD s/p PCI - PVD - active smoker - moderate drinker - obesity - BMI 32.5 - MRSA woundcx collected on 03/03/17 Recommendations: - continue empiric IV vancomycin and pip/tazo; will adjust his antibiotics based on the final culture results - will need 4-6 weeks of abx Care and management discussed with patient, JENNIFER Olivo and DR. Oglesby Problems: Additional Assessment/Plan Planning piccline placement and then discharge home RAFAEL MORRISSEY Mar 07, 2017 13:00
[2017-03-07] MEDS: ASPIRIN (EC) 81 MG TAB PO SCH (13:09)
[2017-03-07] MEDS: ENOXAPARIN 40 MG/0.4 ML SYG SC SCH (13:14)
--- NOTE | 2017-03-07 15:36 | PN ---
Date/Time of Note Date/Time of Note DATE: 03/07/17 TIME: 15:32 Assessment/Plan VTE Prophylaxis VTE Prophylaxis Intervention: SCD's Lines/Catheters IV C[facility] Type (from [facility]): Saline Lock Urinary Cath still in place: No Assessment/Plan Chief Complaint/Hosp Course Patient remains hemodynamically stable, awaits for PICC line placement. Assessment/Plan - Left foot abscess with possible osteomyelitis and left leg cellulitis, possibly due to postoperative infection after recent left foot hammertoe surgery. Dr. Mendel skinner is following in infection disease consultation. Wound cultures growing MRSA, continue vancomycin, await for final ID recommendations. Dr. Mcdaniel is following in podiatry consultation. - Hypertension. Continue Coreg. - Coronary artery disease status post MARINE STEWARD of left circumflex. Continue aspirin and Plavix. - Dyslipidemia. Continue Plavix. - Peripheral vascular disease. Dr. Red is following in vascular surgery consultation. - Tobacco dependence, cessation is advised, patient is continued on nicotine patch. Further recommendations based on clinical course. Plan of care discussed with Dr. Yadav. Problems: Exam/Review of Systems Vital Signs Vitals Vital Signs Date Time Temp Pulse Resp B/P Pulse Ox O2 Delivery O2 Flow Rate FiO2 03/07/17 07:45 98.5 66 16 135/82 97 Intake and Output 03/06/17 03/06/17 03/07/17 15:00 23:00 07:00 Intake Total 350 ml 1900 ml 850 ml Output Total 1700 ml Balance 350 ml 200 ml 850 ml Exam Constitutional: alert, oriented Neck: supple Respiratory: normal air movement Cardiovascular: nl pulses Gastrointestinal: non-tender, soft Extremities: other (Left foot swelling and erythema, improved) Results Result Diagram: 03/07/1728 03/07/17 0828 Results 24 hrs Laboratory Tests Test 03/07/17 08:28 White Blood Count 10.9 H Red Blood Count 4.49 L Hemoglobin 13.1 L Hematocrit 40.4 L Mean Corpuscular Volume 90.0 Mean Corpuscular Hemoglobin 29.2 Mean Corpuscular Hemoglobin Concent 32.4 Red Cell Distribution Width 12.9 Platelet Count 238 Mean Platelet Volume 10.5 H Neutrophils % 76.4 Lymphocytes % 13.3 L Monocytes % 7.1 Eosinophils % 2.1 Basophils % 0.4 Nucleated Red Blood Cells % 0.0 Neutrophils # 8.3 H Lymphocytes # 1.5 Monocytes # 0.8 Eosinophils # 0.2 Basophils # 0.0 Nucleated Red Blood Cells # 0.0 Sodium Level 140 Potassium Level 4.1 Chloride Level 105 Carbon Dioxide Level 27 Anion Gap 12 Blood Urea Nitrogen 16 Creatinine 1.10 Glucose Level 137 Calcium Level 9.2 Vancomycin Level Trough 11.5 Medications Medications Current Medications Aspirin (Halfprin) 81 mg DAILY PO Last administered on 03/07/17 13:09; Admin Dose 81 MG; Start 03/03/17 at 09:00 Carisoprodol (Soma) 350 mg Q8 PRN PO MUSCLE SPASMS; Start 03/02/17 at 18:00 Carvedilol (Coreg) 25 mg BID PO Last administered on 03/07/17 10:26; Admin Dose 25 MG; Start 03/02/17 at 21:00 Clopidogrel Bisulfate (plaVIX) 75 mg DAILY PO Last administered on 03/07/17 10 :24; Admin Dose 75 MG; Start 03/03/17 at 09:00 Gabapentin (Neurontin) 300 mg TID PO Last administered on 03/07/17 13:09; Admin Dose 300 MG; Start 03/02/17 at 21:00 Acetaminophen/ Hydrocodone Bitart ([place] (10/325)) 1 tab Q4H PRN PO PAIN Last administered on 03/03/17 12:48; Admin Dose 1 TAB; Start 03/02/17 at 18:00 Ropinirole HCl (Requip) 0.5 mg HS PO Last administered on 03/06/17 21:22; Admin Dose 0.5 MG; Start 03/02/17 at 21:00 Atorvastatin Calcium 20 mg 20 mg HS PO Last administered on 03/06/17 21:22; Admin Dose 20 MG; Start 03/02/17 at 21:00 Piperacillin Sod/ Tazobactam Sod (Zosyn 3.375gm/ 100 ml (Pmx)) 100 ml @ 200 mls /hr Q6 IVPB Last administered on 03/07/17 13:55; Admin Dose 200 MLS/HR; Start 03/02/17 at 18:00 Enoxaparin Sodium (Lovenox) 40 mg DAILY SC Last administered on 03/07/17 13:14 ; Admin Dose 40 MG; Start 03/03/17 at 09:00 Hydromorphone HCl (Dilaudid) 1 mg Q4H PRN IV PAIN Last administered on 17:52; Admin Dose 1 MG; Start 03/02/17 at 18:00 Acetaminophen (Tylenol Tab) 650 mg Q4H PRN PO PAIN AND OR ELEVATED TEMP Last administered on 03/07/17 13:23; Admin Dose 650 MG; Start 03/02/17 at 18:00 Losartan Potassium (Cozaar) 50 mg DAILY PO Last administered on 03/07/17 10:24 ; Admin Dose 50 MG; Start 03/03/17 at 09:00 Hydrochlorothiazide (Hydrochlorothiazide) 12.5 mg DAILY PO Last administered on 03/07/17 10:25; Admin Dose 12.5 MG; Start 03/03/17 at 09:00 Pantoprazole (Protonix Tab) 40 mg DAILY@06 PO Last administered on 03/07/17 05 :45; Admin Dose 40 MG; Start 03/03/17 at 06:00 Al Hydrox/Mg Hydrox/Simethicone (Mag-Al Plus) 30 ml Q4H PRN PO HEART BURN; Start 03/02/17 at 22:00 Nicotine (Nicoderm 21 Mg/ 24hr) 1 patch DAILY@21 TRANSDERM Last administered on 03/06/17 21:23; Admin Dose 1 PATCH; Start 03/05/17 at 21:00 Lorazepam 1 mg 1 mg Q4H PRN PO ANXIETY; Start 03/06/17 at 16:30 Vancomycin HCl (Vancocin) 250 ml @ 125 mls/hr Q8H IVPB ; Start 03/07/17 at 20: 00 Miscellaneous Information (*Rx Drug Level Order Reminder*) VANCO TROUGH ON 02/22... ONCE ONCE XX ; Start 03/08/17 at 19:00; Stop 03/08/17 at 19:01 TARIQ HI Mar 07, 2017 15:36
[2017-03-07] MEDS: VANCOMYCIN 1 GM (PMX) 250 ML IVPB SCH (20:23)
[2017-03-07] MEDS: ATORVASTATIN 20 MG TAB PO SCH (20:23)
[2017-03-07] MEDS: ROPINIROLE 0.25 MG TAB PO SCH (20:24)
[2017-03-07] MEDS: NICOTINE (21 MG/24 HR) PATCH TRANSDERM SCH (20:25)
[2017-03-07 20:34] VITALS: BP 152/98; PULSE 75; RESP 20
[2017-03-08] MEDS: PIPER-TAZO 3.375 GM IV (PMX) 100 ML IVPB SCH ×2 (00:13→06:23)
[2017-03-08] MEDS: VANCOMYCIN 1 GM (PMX) 250 ML IVPB SCH ×3 (04:10→20:49)
[2017-03-08] MEDS: PANTOPRAZOLE (EC) 40 MG TAB PO SCH (06:23)
[2017-03-08 07:17] LABS: ADD SCAN DIFF NO
[2017-03-08 07:22] LABS: BASOPHIL # 0.1 10^3/ul (0.0-0.1); BASOPHILS % 0.4 % (0.0-2.0); EOSINOPHILS # 0.2 10^3/ul (0.0-0.5); HEMATOCRIT 40.6 % (42.0-52.0); HEMOGLOBIN 13.3 g/dl (14.0-18.0); LYMPHOCYTES # 1.8 10^3/ul (0.8-2.9); LYMPHOCYTES % 15.3 % (15.0-51.0); MEAN CORPUSCULAR HEMOGLOBIN 29.5 pg (29.0-33.0); MEAN CORPUSCULAR HGB CONC 32.8 g/dl (32.0-37.0); MEAN PLATELET VOLUME 10.4 fl (7.4-10.4); MONOCYTE # 1.2 10^3/ul (0.3-0.9); MONOCYTES % 9.6 % (0.0-11.0); NEUTROPHIL # 8.6 10^3/ul (1.6-7.5); NEUTROPHILS % 71.8 % (39.0-77.0); PLATELET COUNT 240 10^3/UL (140-415); RED BLOOD COUNT 4.51 10^6/ul (4.70-6.10); RED CELL DISTRIBUTION WIDTH 13.1 % (11.5-14.5); WHITE BLOOD COUNT 11.9 10^3/ul (4.8-10.8)
[2017-03-08 08:06] VITALS: BP 130/84; RESP 18
[2017-03-08 08:10] LABS: CALCIUM 9.3 mg/dl (8.4-10.2); CREATININE 1.1 mg/dl (0.61-1.24); POTASSIUM 4.2 mmol/L (3.5-5.1)
[2017-03-08] MEDS: LOSARTAN 50 MG TAB PO SCH (09:25)
[2017-03-08] MEDS: GABAPENTIN 300 MG CAP PO SCH ×3 (09:25→20:55)
[2017-03-08] MEDS: ASPIRIN (EC) 81 MG TAB PO SCH (09:25)
[2017-03-08] MEDS: HYDROCHLOROTHIAZIDE 12.5 MG CAP PO SCH (09:25)
[2017-03-08] MEDS: CLOPIDOGREL 75 MG TAB PO SCH (09:25)
[2017-03-08] MEDS: ENOXAPARIN 40 MG/0.4 ML SYG SC SCH (09:30)
--- NOTE | 2017-03-08 11:46 | CONS ---
Date/Time of Note Date/Time of Note DATE: 03/08/17 TIME: 11:43 Assessment/Plan Assessment/Plan Chief Complaint/Hosp Course - possible erosion and OM of the tuft and undersurface of 2nd distal phalanx (X Ray finding), probably involving the fixation pin as pus was expressed at its insertion site - s/p L hammartoe repair on 01/29/2017 - s/p R hammartoe repair in 2016 - h/o skin and soft tissue infection of RLE - CAD s/p PCI - PVD - active smoker - moderate drinker - obesity - BMI 32.5 - MRSA woundcx collected on 03/03/17 Recommendations: - outpatient id f/u in 2 weeks - continue empiric IV vancomycin - will need 4-6 weeks of abx Problems: Consultation Date/Type/Reason Admit Date/Time Mar 02, 2017 at 12:28 Initial Consult Date 03/03/17 Type of Consultation: INFECTIOUS DISEASE Referring Provider: ANGÉLICA HUSTON MD Exam/Review of Systems Vital Signs Vitals Vital Signs Date Time Temp Pulse Resp B/P Pulse Ox O2 Delivery O2 Flow Rate FiO2 03/08/17 08:06 98.1 62 18 130/84 98 03/07/17 20:34 Room Air Intake and Output 03/07/17 03/07/17 03/08/17 15:00 23:00 07:00 Intake Total 450 ml 1190 ml 830 ml Balance 450 ml 1190 ml 830 ml Exam Constitutional: alert, oriented, well developed Psych: nl mood/affect, no complaints Head: atraumatic, normocephalic Eyes: EOMI, PERRL, nl conjunctiva, nl lids, nl sclera Respiratory: clear to auscultation, normal air movement Cardiovascular: nl pulses, regular rate and rhythm Extremities: other (wound bandaged) Results Result Diagram: 03/08/17 0627 03/08/17 0627 Results 24 hrs Laboratory Tests Test 03/08/17 06:27 White Blood Count 11.9 H Red Blood Count 4.51 L Hemoglobin 13.3 L Hematocrit 40.6 L Mean Corpuscular Volume 90.0 Mean Corpuscular Hemoglobin 29.5 Mean Corpuscular Hemoglobin Concent 32.8 Red Cell Distribution Width 13.1 Platelet Count 240 Mean Platelet Volume 10.4 Neutrophils % 71.8 Lymphocytes % 15.3 Monocytes % 9.6 Eosinophils % 2.0 Basophils % 0.4 Nucleated Red Blood Cells % 0.0 Neutrophils # 8.6 H Lymphocytes # 1.8 Monocytes # 1.2 H Eosinophils # 0.2 Basophils # 0.1 Nucleated Red Blood Cells # 0.0 Sodium Level 142 Potassium Level 4.2 Chloride Level 107 Carbon Dioxide Level 30 Anion Gap 9 Blood Urea Nitrogen 20 Creatinine 1.10 Glucose Level 99 Calcium Level 9.3 Medications Medications Current Medications Aspirin (Halfprin) 81 mg DAILY PO Last administered on 03/08/17 09:25; Admin Dose 81 MG; Start 03/03/17 at 09:00 Carisoprodol (Soma) 350 mg Q8 PRN PO MUSCLE SPASMS; Start 03/02/17 at 18:00 Carvedilol (Coreg) 25 mg BID PO Last administered on 03/08/17 09:24; Admin Dose 25 MG; Start 03/02/17 at 21:00 Clopidogrel Bisulfate (plaVIX) 75 mg DAILY PO Last administered on 03/08/17 09 :25; Admin Dose 75 MG; Start 03/03/17 at 09:00 Gabapentin (Neurontin) 300 mg TID PO Last administered on 03/08/17 09:25; Admin Dose 300 MG; Start 03/02/17 at 21:00 Acetaminophen/ Hydrocodone Bitart ([place] (10/325)) 1 tab Q4H PRN PO PAIN Last administered on 03/03/17 12:48; Admin Dose 1 TAB; Start 03/02/17 at 18:00 Ropinirole HCl (Requip) 0.5 mg HS PO Last administered on 03/07/17 20:24; Admin Dose 0.5 MG; Start 03/02/17 at 21:00 Atorvastatin Calcium 20 mg 20 mg HS PO Last administered on 03/07/17 20:23; Admin Dose 20 MG; Start 03/02/17 at 21:00 Piperacillin Sod/ Tazobactam Sod (Zosyn 3.375gm/ 100 ml (Pmx)) 100 ml @ 200 mls /hr Q6 IVPB Last administered on 03/08/17 06:23; Admin Dose 200 MLS/HR; Start 03/02/17 at 18:00 Enoxaparin Sodium (Lovenox) 40 mg DAILY SC Last administered on 03/08/17 09:30 ; Admin Dose 40 MG; Start 03/03/17 at 09:00 Hydromorphone HCl (Dilaudid) 1 mg Q4H PRN IV PAIN Last administered on 17:52; Admin Dose 1 MG; Start 03/02/17 at 18:00 Acetaminophen (Tylenol Tab) 650 mg Q4H PRN PO PAIN AND OR ELEVATED TEMP Last administered on 03/07/17 13:23; Admin Dose 650 MG; Start 03/02/17 at 18:00 Losartan Potassium (Cozaar) 50 mg DAILY PO Last administered on 03/08/17 09:25 ; Admin Dose 50 MG; Start 03/03/17 at 09:00 Hydrochlorothiazide (Hydrochlorothiazide) 12.5 mg DAILY PO Last administered on 03/08/17 09:25; Admin Dose 12.5 MG; Start 03/03/17 at 09:00 Pantoprazole (Protonix Tab) 40 mg DAILY@06 PO Last administered on 03/08/17 06 :23; Admin Dose 40 MG; Start 03/03/17 at 06:00 Al Hydrox/Mg Hydrox/Simethicone (Mag-Al Plus) 30 ml Q4H PRN PO HEART BURN; Start 03/02/17 at 22:00 Nicotine (Nicoderm 21 Mg/ 24hr) 1 patch DAILY@21 TRANSDERM Last administered on 03/07/17 20:25; Admin Dose 1 PATCH; Start 03/05/17 at 21:00 Lorazepam 1 mg 1 mg Q4H PRN PO ANXIETY; Start 03/06/17 at 16:30 Vancomycin HCl (Vancocin) 250 ml @ 125 mls/hr Q8H IVPB Last administered on 04:10; Admin Dose 125 MLS/HR; Start 03/07/17 at 20:00 Miscellaneous Information (*Rx Drug Level Order Reminder*) VANCO TROUGH ON 02/22... ONCE ONCE XX ; Start 03/08/17 at 19:00; Stop 03/08/17 at 19:01 PAULINE WEISS MD Mar 08, 2017 11:46
--- NOTE | 2017-03-08 12:28 | PN ---
Date/Time of Note Date/Time of Note DATE: 03/08/17 TIME: 12:26 Assessment/Plan VTE Prophylaxis VTE Prophylaxis Intervention: other Lines/Catheters IV [facility] Type [facility]from [facility] Saline Lock Urinary Cath still in place: No Assessment/Plan Assessment/Plan - Left foot abscess with possible osteomyelitis and left leg cellulitis, possibly due to postoperative infection after recent left foot hammertoe surgery. Wound cultures growing MRSA, - per ID - continue vancomycin - For PICC line placement today - Dr. Mcdaniel is following in podiatry consultation. - Hypertension. Continue Coreg. - Coronary artery disease status post ELECTRICIAN SOUND of left circumflex. Continue aspirin and Plavix. - Dyslipidemia. Continue Plavix. - Peripheral vascular disease. Dr. Red is following in vascular surgery consultation. - Tobacco dependence, cessation is advised, patient is continued on nicotine patch. Further recommendations based on clinical course. Plan of care discussed with Dr. Yadav. Subjective 24 Hr Interval Summary Free Text/Dictation Alert, awake, afebrile, denies any complains, left foot abscess-cont antibiotics -, for PICC line placement today ID, Pdiatary follows, staff. Subjective hx not possible: pt critical status Respiratory: no complaints Cardiovascular: no complaints Gastrointestinal: no complaints Musculoskeletal: bone/joint pain Skin: erythema (left foot) Exam/Review of Systems Vital Signs Vitals Vital Signs Date Time Temp Pulse Resp B/P Pulse Ox O2 Delivery O2 Flow Rate FiO2 03/08/17 08:06 98.1 62 18 130/84 98 03/07/17 20:34 Room Air Intake and Output 03/07/17 03/07/17 03/08/17 15:00 23:00 07:00 Intake Total 450 ml 1190 ml 830 ml Balance 450 ml 1190 ml 830 ml Exam Constitutional: alert, oriented ENMT: nl external ears & nose Respiratory: clear to auscultation, normal air movement Cardiovascular: nl pulses, regular rate and rhythm Gastrointestinal: non-tender, soft Musculoskeletal: other Extremities: other Neurological: nl mental status, nl speech Skin: other Results Result Diagram: 03/08/17 0627 03/08/17 06 Results 24 hrs Laboratory Tests Test 03/08/17 06:27 White Blood Count 11.9 H Red Blood Count 4.51 L Hemoglobin 13.3 L Hematocrit 40.6 L Mean Corpuscular Volume 90.0 Mean Corpuscular Hemoglobin 29.5 Mean Corpuscular Hemoglobin Concent 32.8 Red Cell Distribution Width 13.1 Platelet Count 240 Mean Platelet Volume 10.4 Neutrophils % 71.8 Lymphocytes % 15.3 Monocytes % 9.6 Eosinophils % 2.0 Basophils % 0.4 Nucleated Red Blood Cells % 0.0 Neutrophils # 8.6 H Lymphocytes # 1.8 Monocytes # 1.2 H Eosinophils # 0.2 Basophils # 0.1 Nucleated Red Blood Cells # 0.0 Sodium Level 142 Potassium Level 4.2 Chloride Level 107 Carbon Dioxide Level 30 Anion Gap 9 Blood Urea Nitrogen 20 Creatinine 1.10 Glucose Level 99 Calcium Level 9.3 Medications Medications Current Medications Aspirin (Halfprin) 81 mg DAILY PO Last administered on 03/08/17 09:25; Admin Dose 81 MG; Start 03/03/17 at 09:00 Carisoprodol (Soma) 350 mg Q8 PRN PO MUSCLE SPASMS; Start 03/02/17 at 18:00 Carvedilol (Coreg) 25 mg BID PO Last administered on 03/08/17 09:24; Admin Dose 25 MG; Start 03/02/17 at 21:00 Clopidogrel Bisulfate (plaVIX) 75 mg DAILY PO Last administered on 03/08/17 09 :25; Admin Dose 75 MG; Start 03/03/17 at 09:00 Gabapentin (Neurontin) 300 mg TID PO Last administered on 03/08/17 09:25; Admin Dose 300 MG; Start 03/02/17 at 21:00 Acetaminophen/ Hydrocodone Bitart ([place] (10/325)) 1 tab Q4H PRN PO PAIN Last administered on 03/03/17 12:48; Admin Dose 1 TAB; Start 03/02/17 at 18:00 Ropinirole HCl (Requip) 0.5 mg HS PO Last administered on 03/07/17 20:24; Admin Dose 0.5 MG; Start 03/02/17 at 21:00 Atorvastatin Calcium (Lipitor) 20 mg HS PO Last administered on 03/07/17 20:23 ; Admin Dose 20 MG; Start 03/02/17 at 21:00 Enoxaparin Sodium (Lovenox) 40 mg DAILY SC Last administered on 03/08/17 09:30 ; Admin Dose 40 MG; Start 03/03/17 at 09:00 Hydromorphone HCl (Dilaudid) 1 mg Q4H PRN IV PAIN Last administered on 17:52; Admin Dose 1 MG; Start 03/02/17 at 18:00 Acetaminophen (Tylenol Tab) 650 mg Q4H PRN PO PAIN AND OR ELEVATED TEMP Last administered on 03/07/17 13:23; Admin Dose 650 MG; Start 03/02/17 at 18:00 Losartan Potassium (Cozaar) 50 mg DAILY PO Last administered on 03/08/17 09:25 ; Admin Dose 50 MG; Start 03/03/17 at 09:00 Hydrochlorothiazide (Hydrochlorothiazide) 12.5 mg DAILY PO Last administered on 03/08/17 09:25; Admin Dose 12.5 MG; Start 03/03/17 at 09:00 Pantoprazole (Protonix Tab) 40 mg DAILY@06 PO Last administered on 03/08/17 06 :23; Admin Dose 40 MG; Start 03/03/17 at 06:00 Al Hydrox/Mg Hydrox/Simethicone (Mag-Al Plus) 30 ml Q4H PRN PO HEART BURN; Start 03/02/17 at 22:00 Nicotine (Nicoderm 21 Mg/ 24hr) 1 patch DAILY@21 TRANSDERM Last administered on 03/07/17 20:25; Admin Dose 1 PATCH; Start 03/05/17 at 21:00 Lorazepam 1 mg 1 mg Q4H PRN PO ANXIETY; Start 03/06/17 at 16:30 Vancomycin HCl (Vancocin) 250 ml @ 125 mls/hr Q8H IVPB Last administered on 04:10; Admin Dose 125 MLS/HR; Start 03/07/17 at 20:00 Miscellaneous Information (*Rx Drug Level Order Reminder*) VANCO TROUGH ON 02/22... ONCE ONCE XX ; Start 03/08/17 at 19:00; Stop 03/08/17 at 19:01 ROSELINE CAR Mar 08, 2017 12:28
--- NOTE | 2017-03-08 12:49 | PN ---
Date/Time of Note Date/Time of Note DATE: 03/08/17 TIME: 12:48 Assessment/Plan Lines/Catheters IV Catheter Type (from Nrs): Saline Lock [place] in Place (from Nrs): No Assessment/Plan Problems: (1) Cellulitis Status: Acute Qualifiers: Site of cellulitis: extremity Site of cellulitis of extremity: lower extremity Laterality: left Qualified Code: L03.116 - Cellulitis of left lower extremity (2) Diabetes, polyneuropathy Assessment/Plan awaiting picc line insertion Exam/Review of Systems Vital Signs Vitals Vital Signs Date Time Temp Pulse Resp B/P Pulse Ox O2 Delivery O2 Flow Rate FiO2 03/08/17 08:06 98.1 62 18 130/84 98 03/07/17 20:34 Room Air Intake and Output 03/07/17 03/07/17 03/08/17 15:00 23:00 07:00 Intake Total 450 ml 1190 ml 830 ml Balance 450 ml 1190 ml 830 ml Results Result Diagram: 03/08/17 0627 03/08/17 0627 JULIUS RUSHING DPM Mar 08, 2017 12:49
[2017-03-08 20:00] VITALS: BP 135/89; PULSE 75; RESP 18
[2017-03-08] MEDS: ATORVASTATIN 20 MG TAB PO SCH (20:55)
[2017-03-08] MEDS: ROPINIROLE 0.25 MG TAB PO SCH (20:56)
[2017-03-08] MEDS: NICOTINE (21 MG/24 HR) PATCH TRANSDERM SCH (20:56)
[2017-03-08 23:00] VITALS: BP 138/76; PULSE 70; RESP 19
[2017-03-09] MEDS: VANCOMYCIN 1 GM (PMX) 250 ML IVPB SCH (03:49)
[2017-03-09] MEDS: PANTOPRAZOLE (EC) 40 MG TAB PO SCH (05:39)
[2017-03-09 08:01] VITALS: BP 128/68; RESP 20
[2017-03-09] MEDS: HYDROCHLOROTHIAZIDE 12.5 MG CAP PO SCH (09:08)
[2017-03-09] MEDS: ASPIRIN (EC) 81 MG TAB PO SCH (09:08)
[2017-03-09] MEDS: GABAPENTIN 300 MG CAP PO SCH ×3 (09:09→21:19)
[2017-03-09] MEDS: LOSARTAN 50 MG TAB PO SCH (09:10)
[2017-03-09] MEDS: CLOPIDOGREL 75 MG TAB PO SCH (09:10)
[2017-03-09] MEDS: ENOXAPARIN 40 MG/0.4 ML SYG SC SCH (09:31)
--- NOTE | 2017-03-09 14:29 | RADRPT ---
PROCEDURE: US guidance for PICC line CLINICAL INDICATION: PICC line placement TECHNIQUE: Multiple real-time images were acquired of the patient's arm utilizing a high resolutio n transducer. This was performed by the PICC line nurse for venous access. COMPARISON: None FINDINGS: Ultrasound guidance for PICC line placement. IMPRESSION: Ultrasound guidance for PICC line placement. RPTAT: AA .Lee Thacker MD, MD Date Time Electronically viewed and signed by .Lee Thacker MD, on 03/09/2017 14:29 .S/
--- NOTE | 2017-03-09 14:35 | RADRPT ---
PROCEDURE: XR Chest. CLINICAL INDICATION: Check PICC line position. TECHNIQUE: Single frontal view. COMPARISON: Prior study done earlier the same day. FINDINGS: There is a right arm PICC line with the tip in the upper to mid superior vena cava. The lungs are c lear. The heart is enlarged. There is calcification in the aorta consistent with atherosclerosis. There is no pleural effusion. There is no pneumothorax. IMPRESSION: 1. Satisfactory position of right arm PICC line. 2. Cardiomegaly and atherosclerosis. 3. Clear lungs. RPTAT: QQ .Americo Zhang MD, Date Time Electronically viewed and signed by .Americo Zhang MD, MD on 03/09/2017 14:35 .R/
--- NOTE | 2017-03-09 14:35 | RADRPT ---
PROCEDURE: XR Chest. CLINICAL INDICATION: Check PICC line position. TECHNIQUE: Single frontal view. COMPARISON: No prior study is available for comparison. FINDINGS: There is a right arm PICC line with the tip in the the upper superior vena cava. The lungs are bel r. The heart is enlarged. There is calcification in the aorta consistent with atherosclerosis. There is no pleural effusion. There is no pneumothorax. IMPRESSION: 1. Right arm PICC line tip in the upper superior vena cava. This should be advanced. 2. Cardiomegaly and atherosclerosis. RPTAT: QQ .Americo Zhang MD, MD Date Time Electronically viewed and signed by .Americo Zhang MD, MD on 03/09/2017 14:35 .R/
--- NOTE | 2017-03-09 15:29 | CONS ---
Date/Time of Note Date/Time of Note DATE: 03/09/17 TIME: 15:28 Assessment/Plan Assessment/Plan Chief Complaint/Hosp Course - SSTI with MRSA and possible erosion and OM of the tuft and undersurface of 2nd distal phalanx (X Ray finding), probably involving the fixation pin as pus was expressed at its insertion site - s/p L hammartoe repair on 01/29/2017 - s/p R hammartoe repair in 2016 - h/o skin and soft tissue infection of RLE - CAD s/p PCI - PVD - active smoker - moderate drinker - obesity - BMI 32.5 Recommendations: - outpatient ID f/u in 2 weeks - continue IV vancomycin (03/02/2017-) - will need 4-6 weeks of abx - agree with DC planning Management d/w patient and Dr. Oglesby Problems: Consultation Date/Type/Reason Admit Date/Time Mar 02, 2017 at 12:28 Initial Consult Date 03/03/17 Type of Consultation: Infectious Disease Referring Provider: ANGÉLICA HUSTON MD 24 HR Interval Summary Free Text/Dictation RUE PICC was placed today. Pt anxious to go home. States left foot swelling and erythema has practically resolved and left foot pain is tolerable. No other complaints. Exam/Review of Systems Vital Signs Vitals Vital Signs Date Time Temp Pulse Resp B/P Pulse Ox O2 Delivery O2 Flow Rate FiO2 03/09/17 08:01 98.6 73 20 128/68 99 03/08/17 23:00 Room Air Intake and Output 03/08/17 03/08/17 03/09/17 15:00 23:00 07:00 Intake Total 350 ml 2050 ml 750 ml Balance 350 ml 2050 ml 750 ml Exam Constitutional: alert, obese, oriented, well developed Head: atraumatic, normocephalic Eyes: nl sclera Neck: supple Respiratory: clear to auscultation, normal air movement Cardiovascular: nl pulses, regular rate and rhythm Gastrointestinal: non-tender, soft Musculoskeletal: nl extremities to inspection, other (L 2nd toe with dressing c /d/i) Extremities: other (R 4th finger amputation noted; RUE PICC with no e/o infection), no edema Neurological: nl mental status, nl speech, other (Bilateral feet sensation intact) Skin: no rash Results Result Diagram: 03/08/17 0627 03/08/17 0627 Results 24 hrs Laboratory Tests Test 03/08/17 19:05 Vancomycin Level Trough 15.2 Medications Medications Current Medications Aspirin (Halfprin) 81 mg DAILY PO Last administered on 03/09/17 09:08; Admin Dose 81 MG; Start 03/03/17 at 09:00 Carisoprodol (Soma) 350 mg Q8 PRN PO MUSCLE SPASMS; Start 03/02/17 at 18:00 Carvedilol (Coreg) 25 mg BID PO Last administered on 03/09/17 09:10; Admin Dose 25 MG; Start 03/02/17 at 21:00 Clopidogrel Bisulfate (plaVIX) 75 mg DAILY PO Last administered on 03/09/17 09 :10; Admin Dose 75 MG; Start 03/03/17 at 09:00 Gabapentin (Neurontin) 300 mg TID PO Last administered on 03/09/17 12:57; Admin Dose 300 MG; Start 03/02/17 at 21:00 Acetaminophen/ Hydrocodone Bitart ([place] (10/325)) 1 tab Q4H PRN PO PAIN Last administered on 03/03/17 12:48; Admin Dose 1 TAB; Start 03/02/17 at 18:00 Ropinirole HCl (Requip) 0.5 mg HS PO Last administered on 03/08/17 20:56; Admin Dose 0.5 MG; Start 03/02/17 at 21:00 Atorvastatin Calcium (Lipitor) 20 mg HS PO Last administered on 03/08/17 20:55 ; Admin Dose 20 MG; Start 03/02/17 at 21:00 Enoxaparin Sodium (Lovenox) 40 mg DAILY SC Last administered on 03/09/17 09:31 ; Admin Dose 40 MG; Start 03/03/17 at 09:00 Hydromorphone HCl (Dilaudid) 1 mg Q4H PRN IV PAIN Last administered on 17:52; Admin Dose 1 MG; Start 03/02/17 at 18:00 Acetaminophen (Tylenol Tab) 650 mg Q4H PRN PO PAIN AND OR ELEVATED TEMP Last administered on 03/07/17 13:23; Admin Dose 650 MG; Start 03/02/17 at 18:00 Losartan Potassium (Cozaar) 50 mg DAILY PO Last administered on 03/09/17 09:10 ; Admin Dose 50 MG; Start 03/03/17 at 09:00 Hydrochlorothiazide (Hydrochlorothiazide) 12.5 mg DAILY PO Last administered on 03/09/17 09:08; Admin Dose 12.5 MG; Start 03/03/17 at 09:00 Pantoprazole (Protonix Tab) 40 mg DAILY@06 PO Last administered on 03/09/17 05 :39; Admin Dose 40 MG; Start 03/03/17 at 06:00 Al Hydrox/Mg Hydrox/Simethicone (Mag-Al Plus) 30 ml Q4H PRN PO HEART BURN; Start 03/02/17 at 22:00 Nicotine (Nicoderm 21 Mg/ 24hr) 1 patch DAILY@21 TRANSDERM Last administered on 03/08/17 20:56; Admin Dose 1 PATCH; Start 03/05/17 at 21:00 Lorazepam 1 mg 1 mg Q4H PRN PO ANXIETY; Start 03/06/17 at 16:30 Vancomycin HCl/ Sodium Chloride (Vancocin/NS) 250 ml @ 83.333 mls/ hr Q12H IVPB ; Start 03/09/17 at 16:00 MJ UMAÑA NP Mar 09, 2017 15:29
[2017-03-09] MEDS: VANCOMYCIN 1.5 GM in SOD CHLORIDE 0.9% 250 ML IVPB SCH (16:14)
--- NOTE | 2017-03-09 18:04 | PN ---
Date/Time of Note Date/Time of Note DATE: 03/09/17 TIME: 18:02 Assessment/Plan VTE Prophylaxis VTE Prophylaxis Intervention: SCD's Lines/Catheters IV Catheter Type (from Nrs): PICC Line Central line still needed: Yes Urinary Cath still in place: No Reason Cath still needed: urinary retention Assessment/Plan Chief Complaint/Hosp Course Patient status post PICC line insertion today, anticipate discharge home upon arrangement of vancomycin pharmacy to dose by home health for 5 more weeks. Assessment/Plan - Left foot abscess with possible osteomyelitis and left leg cellulitis, possibly due to postoperative infection after recent left foot hammertoe surgery. Dr. Mendel skinner is following in infection disease consultation. Wound cultures growing MRSA, continue vancomycin for [address] Mcdaniel is following in podiatry consultation. - Hypertension. Continue Coreg. 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 Continue aspirin and Plavix. - Dyslipidemia. Continue Plavix. - Peripheral vascular disease. Dr. Red is following in vascular surgery consultation. - Tobacco dependence, cessation is advised, patient is continued on nicotine patch. Further recommendations based on clinical course. Plan of care discussed with Dr. Yadav. Problems: Exam/Review of Systems Vital Signs Vitals Vital Signs Date Time Temp Pulse Resp B/P Pulse Ox O2 Delivery O2 Flow Rate FiO2 03/09/17 08:01 98.6 73 20 128/68 99 03/08/17 23:00 Room Air Intake and Output 03/08/17 03/08/17 03/09/17 14:59 22:59 06:59 Intake Total 350 ml 2050 ml 750 ml Balance 350 ml 2050 ml 750 ml Exam Constitutional: alert, oriented Neck: supple Respiratory: normal air movement Cardiovascular: nl pulses Gastrointestinal: non-tender, soft Extremities: other (Left foot swelling and erythema, improved) Right upper extremity PICC line Results Result Diagram: 03/08/1762603/08/17626 Results 24 hrs Laboratory Tests Test 03/08/17 19:05 Vancomycin Level Trough 15.2 Medications Medications Current Medications Aspirin (Halfprin) 81 mg DAILY PO Last administered on 03/09/17t 09:08; Admin Dose 81 MG; Start 03/03/17 at 09:00 Carisoprodol (Soma) 350 mg Q8 PRN PO MUSCLE SPASMS; Start 03/02/17 at 18:00 Carvedilol (Coreg) 25 mg BID PO Last administered on 03/09/17 09:10; Admin Dose 25 MG; Start 03/02/17 at 21:00 Clopidogrel Bisulfate (plaVIX) 75 mg DAILY PO Last administered on 03/09/17 09 :10; Admin Dose 75 MG; Start 03/03/17 at 09:00 Gabapentin (Neurontin) 300 mg TID PO Last administered on 03/09/17 12:57; Admin Dose 300 MG; Start 03/02/17 at 21:00 Acetaminophen/ Hydrocodone Bitart ([place] (10)) 1 tab Q4H PRN PO PAIN Last administered on 03/03/17 12:48; Admin Dose 1 TAB; Start 03/02/17 at 18:00 Ropinirole HCl (Requip) 0.5 mg HS PO Last administered on 03/08/17 20:56; Admin Dose 0.5 MG; Start 03/02/17 at 21:00 Atorvastatin Calcium (Lipitor) 20 mg HS PO Last administered on 03/08/17 20:55 ; Admin Dose 20 MG; Start 03/02/17 at 21:00 Enoxaparin Sodium (Lovenox) 40 mg DAILY SC Last administered on 03/09/17 09:31 ; Admin Dose 40 MG; Start 03/03/17 at 09:00 Hydromorphone HCl (Dilaudid) 1 mg Q4H PRN IV PAIN Last administered on 17:52; Admin Dose 1 MG; Start 03/02/17 at 18:00 Acetaminophen (Tylenol Tab) 650 mg Q4H PRN PO PAIN AND OR ELEVATED TEMP Last administered on 03/07/17 13:23; Admin Dose 650 MG; Start 03/02/17 at 18:00 Losartan Potassium (Cozaar) 50 mg DAILY PO Last administered on 03/09/17 09:10 ; Admin Dose 50 MG; Start 03/03/17 at 09:00 Hydrochlorothiazide (Hydrochlorothiazide) 12.5 mg DAILY PO Last administered on 03/09/17 09:08; Admin Dose 12.5 MG; Start 03/03/17 at 09:00 Pantoprazole (Protonix Tab) 40 mg DAILY@06 PO Last administered on 03/09/17 05 :39; Admin Dose 40 MG; Start 03/03/17 at 06:00 Al Hydrox/Mg Hydrox/Simethicone (Mag-Al Plus) 30 ml Q4H PRN PO HEART BURN; Start 03/02/17 at 22:00 Nicotine (Nicoderm 21 Mg/ 24hr) 1 patch DAILY@21 TRANSDERM Last administered on 03/08/17t 20:56; Admin Dose 1 PATCH; Start 03/05/17 at 21:00 Lorazepam 1 mg 1 mg Q4H PRN PO ANXIETY; Start 03/06/17 at 16:30 Vancomycin HCl/ Sodium Chloride (Vancocin/NS) 250 ml @ 83.333 mls/ hr Q12H IVPB Last administered on 03/09/17 16:14; Admin Dose 83.333 MLS/HR; Start at 16:00 TARIQ HI Mar 09, 2017 18:04
[2017-03-09 19:20] VITALS: BP 141/65; RESP 19
[2017-03-09] MEDS: ATORVASTATIN 20 MG TAB PO SCH (21:17)
[2017-03-09] MEDS: ROPINIROLE 0.25 MG TAB PO SCH (21:19)
[2017-03-09] MEDS: NICOTINE (21 MG/24 HR) PATCH TRANSDERM SCH (21:26)
[2017-03-09] MEDS: HYDROCODONE/APAP (10/325) TAB PO PRN (21:27)
[2017-03-10] MEDS: VANCOMYCIN 1.5 GM in SOD CHLORIDE 0.9% 250 ML IVPB SCH ×2 (04:17→16:10)
[2017-03-10] MEDS: PANTOPRAZOLE (EC) 40 MG TAB PO SCH (05:40)
[2017-03-10 07:09] LABS: ADD SCAN DIFF NO
[2017-03-10 07:16] LABS: BASOPHIL # 0.1 10^3/ul (0.0-0.1); BASOPHILS % 0.5 % (0.0-2.0); EOSINOPHILS # 0.3 10^3/ul (0.0-0.5); EOSINOPHILS % 2.8 % (0.0-7.0); HEMATOCRIT 40.2 % (42.0-52.0); HEMOGLOBIN 13.5 g/dl (14.0-18.0); LYMPHOCYTES # 1.9 10^3/ul (0.8-2.9); LYMPHOCYTES % 19.2 % (15.0-51.0); MEAN CORPUSCULAR HEMOGLOBIN 30.1 pg (29.0-33.0); MEAN CORPUSCULAR HGB CONC 33.6 g/dl (32.0-37.0); MEAN CORPUSCULAR VOLUME 89.7 fl (82.0-101.0); MEAN PLATELET VOLUME 10.4 fl (7.4-10.4); MONOCYTE # 1.1 10^3/ul (0.3-0.9); NEUTROPHIL # 6.3 10^3/ul (1.6-7.5); NEUTROPHILS % 64.9 % (39.0-77.0); PLATELET COUNT 255 10^3/UL (140-415); RED BLOOD COUNT 4.48 10^6/ul (4.70-6.10); RED CELL DISTRIBUTION WIDTH 12.7 % (11.5-14.5); WHITE BLOOD COUNT 9.7 10^3/ul (4.8-10.8)
[2017-03-10 07:40] VITALS: BP 133/73; RESP 18
[2017-03-10 07:40] LABS: CALCIUM 9.7 mg/dl (8.4-10.2); CREATININE 1.03 mg/dl (0.61-1.24); POTASSIUM 4.4 mmol/L (3.5-5.1)
[2017-03-10] MEDS: GABAPENTIN 300 MG CAP PO SCH ×3 (09:19→20:59)
[2017-03-10] MEDS: ASPIRIN (EC) 81 MG TAB PO SCH (09:19)
[2017-03-10] MEDS: CLOPIDOGREL 75 MG TAB PO SCH (09:19)
[2017-03-10] MEDS: LOSARTAN 50 MG TAB PO SCH (09:20)
[2017-03-10] MEDS: HYDROCHLOROTHIAZIDE 12.5 MG CAP PO SCH (09:20)
[2017-03-10] MEDS: ENOXAPARIN 40 MG/0.4 ML SYG SC SCH (09:27)
--- NOTE | 2017-03-10 14:06 | PN ---
Date/Time of Note Date/Time of Note DATE: 03/10/17 TIME: 14:04 Assessment/Plan Lines/Catheters IV [facility] Type (from [facility]): PICC Line Urinary Cath still in place: No Assessment/Plan Assessment/Plan - Left foot abscess with possible osteomyelitis and left leg cellulitis, possibly due to postoperative infection after recent left foot hammertoe surgery. Dr. Mendel skinner is following in infection disease consultation. Wound cultures growing MRSA, continue vancomycin for [address] Mcdaniel is following in podiatry consultation. - Hypertension. Continue Coreg. 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 Continue aspirin and Plavix. - Dyslipidemia. Continue Plavix. - Peripheral vascular disease. Dr. Red is following in vascular surgery consultation. - Tobacco dependence, cessation is advised, patient is continued on nicotine patch. Further recommendations based on clinical course. Plan of care discussed with Dr. Yadav. Subjective 24 Hr Interval Summary Respiratory: no complaints Cardiovascular: no complaints Gastrointestinal: no complaints Genitourinary: no complaints Musculoskeletal: bone/joint pain Exam/Review of Systems Vital Signs Vitals Vital Signs Date Time Temp Pulse Resp B/P Pulse Ox O2 Delivery O2 Flow Rate FiO2 03/10/17 07:40 99.1 75 18 133/73 98 03/08/17 23:00 Room Air Intake and Output 03/09/17 03/09/17 03/10/17 15:00 23:00 07:00 Intake Total 1050 ml 750 ml Balance 1050 ml 750 ml Exam Constitutional: alert, well developed ENMT: nl external ears & nose Respiratory: clear to auscultation, normal air movement Cardiovascular: nl pulses, regular rate and rhythm Gastrointestinal: non-tender, soft Musculoskeletal: other Extremities: normal pulses Neurological: nl mental status, nl speech Results Result Diagram: 03/10/17 0641 03/10/17 0641 Results 24 hrs Laboratory Tests Test 03/10/17 06:41 White Blood Count 9.7 Red Blood Count 4.48 L Hemoglobin 13.5 L Hematocrit 40.2 L Mean Corpuscular Volume 89.7 Mean Corpuscular Hemoglobin 30.1 Mean Corpuscular Hemoglobin Concent 33.6 Red Cell Distribution Width 12.7 Platelet Count 255 Mean Platelet Volume 10.4 Neutrophils % 64.9 Lymphocytes % 19.2 Monocytes % 11.0 Eosinophils % 2.8 Basophils % 0.5 Nucleated Red Blood Cells % 0.0 Neutrophils # 6.3 Lymphocytes # 1.9 Monocytes # 1.1 H Eosinophils # 0.3 Basophils # 0.1 Nucleated Red Blood Cells # 0.0 Sodium Level 142 Potassium Level 4.4 Chloride Level 106 Carbon Dioxide Level 27 Anion Gap 13 Blood Urea Nitrogen 24 H Creatinine 1.03 Glucose Level 94 Calcium Level 9.7 Medications Medications Current Medications Aspirin (Halfprin) 81 mg DAILY PO Last administered on 03/10/17 09:19; Admin Dose 81 MG; Start 03/03/17 at 09:00 Carisoprodol (Soma) 350 mg Q8 PRN PO MUSCLE SPASMS; Start 03/02/17 at 18:00 Carvedilol (Coreg) 25 mg BID PO Last administered on 03/10/17 09:20; Admin Dose 25 MG; Start 03/02/17 at 21:00 Clopidogrel Bisulfate (plaVIX) 75 mg DAILY PO Last administered on 03/10/17 09 :19; Admin Dose 75 MG; Start 03/03/17 at 09:00 Gabapentin (Neurontin) 300 mg TID PO Last administered on 03/10/17 12:45; Admin Dose 300 MG; Start 03/02/17 at 21:00 Acetaminophen/ Hydrocodone Bitart ([place] (10/325)) 1 tab Q4H PRN PO PAIN Last administered on 03/09/17 21:27; Admin Dose 1 TAB; Start 03/02/17 at 18:00 Ropinirole HCl (Requip) 0.5 mg HS PO Last administered on 03/09/17 21:19; Admin Dose 0.5 MG; Start 03/02/17 at 21:00 Atorvastatin Calcium (Lipitor) 20 mg HS PO Last administered on 03/09/17 21:17 ; Admin Dose 20 MG; Start 03/02/17 at 21:00 Enoxaparin Sodium (Lovenox) 40 mg DAILY SC Last administered on 03/10/17 09:27 ; Admin Dose 40 MG; Start 03/03/17 at 09:00 Hydromorphone HCl (Dilaudid) 1 mg Q4H PRN IV PAIN Last administered on 17:52; Admin Dose 1 MG; Start 03/02/17 at 18:00 Acetaminophen (Tylenol Tab) 650 mg Q4H PRN PO PAIN AND OR ELEVATED TEMP Last administered on 03/07/17 13:23; Admin Dose 650 MG; Start 03/02/17 at 18:00 Losartan Potassium (Cozaar) 50 mg DAILY PO Last administered on 03/10/17 09:20 ; Admin Dose 50 MG; Start 03/03/17 at 09:00 Hydrochlorothiazide (Hydrochlorothiazide) 12.5 mg DAILY PO Last administered on 03/10/17 09:20; Admin Dose 12.5 MG; Start 03/03/17 at 09:00 Pantoprazole (Protonix Tab) 40 mg DAILY@06 PO Last administered on 03/10/17 05 :40; Admin Dose 40 MG; Start 03/03/17 at 06:00 Al Hydrox/Mg Hydrox/Simethicone (Mag-Al Plus) 30 ml Q4H PRN PO HEART BURN; Start 03/02/17 at 22:00 Nicotine (Nicoderm 21 Mg/ 24hr) 1 patch DAILY@21 TRANSDERM Last administered on 03/09/17 21:26; Admin Dose 1 PATCH; Start 03/05/17 at 21:00 Lorazepam 1 mg 1 mg Q4H PRN PO ANXIETY; Start 03/06/17 at 16:30 Vancomycin HCl/ Sodium Chloride (Vancocin/NS) 250 ml @ 83.333 mls/ hr Q12H IVPB Last administered on 03/10/17 04:17; Admin Dose 83.333 MLS/HR; Start at 16:00 Miscellaneous Information (*Rx Drug Level Order Reminder*) VANCOMYCIN TROUGH AT 1500 ONCE ONCE XX ; Start 03/11/17 at 15:00; Stop 03/11/17 at 15:01 ROSELINE CAR Mar 10, 2017 14:06
--- NOTE | 2017-03-10 15:05 | PDOCDIS ---
Discharge Instructions CONDITION Patient Condition: Stable HOME CARE INSTRUCTIONS: Special Diet: low fat/chol 2 gm na ACTIVITY: Activity Restrictions: Slowly Increase Activity Rest between Activity Avoid heavy lifting Do not operate Machinery Do not operate Power Tool Avoid Heavy Housework Bathing Restrictions: Sponge Bath FOLLOW UP/APPOINTMENTS Appointments FU with PMD X 1 WEEK Call 911 or go to nearest hospital if symptoms get worse. Patient verbalized understanding dc instructions Plan dw Dr Yadav/staff ROSELINE CAR Mar 10, 2017 15:05
--- NOTE | 2017-03-10 15:08 | DS ---
Date/Time of Note Date/Time of Note DATE: 03/10/17 TIME: 15:08 Discharge Summary Admission/Discharge Info Admit Date/Time Mar 02, 2017 at 12:28 Discharge Date/Time Hospital Course Patient status post PICC line insertion today, anticipate discharge home upon arrangement of vancomycin pharmacy to dose by home health for 5 more weeks. Assessment/Plan - Left foot abscess with possible osteomyelitis and left leg cellulitis, possibly due to postoperative infection after recent left foot hammertoe surgery. Dr. Mendel skinner is following in infection disease consultation. Wound cultures growing MRSA, continue vancomycin for [address] Mcdaniel is following in podiatry consultation. - Hypertension. Continue Coreg. 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 Continue aspirin and Plavix. - Dyslipidemia. Continue Plavix. - Peripheral vascular disease. Dr. Red is following in vascular surgery consultation. - Tobacco dependence, cessation is advised, patient is continued on nicotine patch. Further recommendations based on clinical course. Plan of care discussed with Dr. Yadav. Home Meds Active Scripts Clopidogrel Bisulfate (Clopidogrel) 75 Mg Tab, 75 MG PO DAILY for 30 Days Prov:LEXA HALL SURGICAL NURSE PRACTITIONER 10/14/14 Reported Medications Carisoprodol* (Carisoprodol*) 350 Mg Tablet, 350 MG PO Q8 Y for MUSCLE SPASMS, TAB 03/02/17 Gabapentin* (Gabapentin*) 300 Mg Capsule, 300 MG PO TID, #90 CAP 01/29/17 Ropinirole Hcl* (Ropinirole Hcl*) 0.5 Mg Tablet, 0.5 MG PO HS, TAB 01/29/17 Carvedilol* (Carvedilol*) 25 Mg Tablet, 25 MG PO BID, #60 TAB 01/29/17 Aspirin* (Aspirin* EC) 81 Mg Tablet., 81 MG PO DAILY, TAB 10/13/14 Hydrocodone Bit-Acetaminophen* ([place]*) 10-325 Mg Tablet, 1 TAB PO Q4H Y for PAIN, TAB 10/13/14 Losartan-Hydrochlorothiazide (Hyzaar) 50-12.5 Mg Tab, 1 TAB PO DAILY, TAB 10/13/14 Primary Care Provider Cordell Weiner Pending Labs Laboratory Tests Test 03/10/17 06:41 White Blood Count 9.710^3/ul (4.8-10.8) Red Blood Count 4.4810^6/ul (4.70-6.10) Hemoglobin 13.5g/dl (14.0-18.0) Hematocrit 40.2% (42.0-52.0) Mean Corpuscular Volume 89.7fl (82.0-101.0) Mean Corpuscular Hemoglobin 30.1pg (29.0-33.0) Mean Corpuscular Hemoglobin Concent 33.6g/dl (32.0-37.0) Red Cell Distribution Width 12.7% (11.5-14.5) Platelet Count 46587^3/UL (140-415) Mean Platelet Volume 10.4fl (7.4-10.4) Neutrophils % 64.9% (39.0-77.0) Lymphocytes % 19.2% (15.0-51.0) Monocytes % 11.0% (0.0-11.0) Eosinophils % 2.8% (0.0-7.0) Basophils % 0.5% (0.0-2.0) Nucleated Red Blood Cells % 0.0/100WBC (0.0-0.0) Neutrophils # 6.310^3/ul (1.6-7.5) Lymphocytes # 1.910^3/ul (0.8-2.9) Monocytes # 1.110^3/ul (0.3-0.9) Eosinophils # 0.310^3/ul (0.0-0.5) Basophils # 0.110^3/ul (0.0-0.1) Nucleated Red Blood Cells # 0.010^3/ul (0.0-0.0) Sodium Level 142mmol/L (135-144) Potassium Level 4.4mmol/L (3.5-5.1) Chloride Level 106mmol/L (97-110) Carbon Dioxide Level 27mmol/L (21-31) Anion Gap 13 (8-16) Blood Urea Nitrogen 24mg/dl (7-20) Creatinine 1.03mg/dl (0.61-1.24) Glucose Level 94mg/dl (70-220) Calcium Level 9.7mg/dl (8.4-10.2) ROSELINE CAR Mar 10, 2017 15:08
[2017-03-10 20:09] VITALS: BP 135/68; RESP 20
[2017-03-10] MEDS: ROPINIROLE 0.25 MG TAB PO SCH (20:59)
[2017-03-10] MEDS: ATORVASTATIN 20 MG TAB PO SCH (20:59)
[2017-03-10] MEDS: NICOTINE (21 MG/24 HR) PATCH TRANSDERM SCH (21:00)
[2017-03-10] MEDS: HYDROCODONE/APAP (10/325) TAB PO PRN (21:08)
--- NOTE | 2017-03-10 21:25 | CONS ---
Date/Time of Note Date/Time of Note DATE: 03/10/17 TIME: 21:24 Assessment/Plan Assessment/Plan Chief Complaint/Hosp Course - skin and soft tissue infection with MRSA, possible erosion and OM of the tuft and undersurface of L 2nd distal phalanx (X Ray finding), probably involving the fixation pin as pus was expressed at its insertion site. s/p removal of the pin. ESR=20 - s/p L hammartoe repair on 01/29/2017 - s/p R hammartoe repair in 2016 - h/o skin and soft tissue infection of RLE - CAD s/p PCI - PVD - active smoker - moderate drinker - obesity - BMI 32.5 recommendations: - continue IV vancomycin (03/02/2017-), will need 4-6 weeks total - please order weekly CBC and BMP while Pt's on IV antibiotic for review by the ordering physician - outpatient ID f/u in 2 weeks management d/w Pt and his Problems: Consultation Date/Type/Reason Admit Date/Time Mar 02, 2017 at 12:28 Initial Consult Date 03/03/17 Type of Consultation: Infectious Disease Referring Provider: ANGÉLICA HUSTON MD 24 HR Interval Summary Constitutional: no complaints Detailed Summary Eyes: no complaints ENT: no complaints Respiratory: no complaints Cardiovascular: no complaints Gastrointestinal: no complaints Genitourinary: no complaints Musculoskeletal: swelling, No bone/joint pain Skin: skin lesions (wound is closed according to Pt) Exam/Review of Systems Vital Signs Vitals Vital Signs Date Time Temp Pulse Resp B/P Pulse Ox O2 Delivery O2 Flow Rate FiO2 03/10/17 20:09 99.2 84 20 135/68 96 03/08/17 23:00 Room Air Intake and Output 03/09/17 03/09/17 03/10/17 15:00 23:00 07:00 Intake Total 1050 ml 750 ml Balance 1050 ml 750 ml Results Result Diagram: 03/10/17 0641 03/10/17 0641 Results 24 hrs Laboratory Tests Test 03/10/17 06:41 White Blood Count 9.7 Red Blood Count 4.48 L Hemoglobin 13.5 L Hematocrit 40.2 L Mean Corpuscular Volume 89.7 Mean Corpuscular Hemoglobin 30.1 Mean Corpuscular Hemoglobin Concent 33.6 Red Cell Distribution Width 12.7 Platelet Count 255 Mean Platelet Volume 10.4 Neutrophils % 64.9 Lymphocytes % 19.2 Monocytes % 11.0 Eosinophils % 2.8 Basophils % 0.5 Nucleated Red Blood Cells % 0.0 Neutrophils # 6.3 Lymphocytes # 1.9 Monocytes # 1.1 H Eosinophils # 0.3 Basophils # 0.1 Nucleated Red Blood Cells # 0.0 Sodium Level 142 Potassium Level 4.4 Chloride Level 106 Carbon Dioxide Level 27 Anion Gap 13 Blood Urea Nitrogen 24 H Creatinine 1.03 Glucose Level 94 Calcium Level 9.7 Medications Medications Current Medications Aspirin (Halfprin) 81 mg DAILY PO Last administered on 03/10/17 09:19; Admin Dose 81 MG; Start 03/03/17 at 09:00 Carisoprodol (Soma) 350 mg Q8 PRN PO MUSCLE SPASMS; Start 03/02/17 at 18:00 Carvedilol (Coreg) 25 mg BID PO Last administered on 03/10/17 20:59; Admin Dose 25 MG; Start 03/02/17 at 21:00 Clopidogrel Bisulfate (plaVIX) 75 mg DAILY PO Last administered on 03/10/17 09 :19; Admin Dose 75 MG; Start 03/03/17 at 09:00 Gabapentin (Neurontin) 300 mg TID PO Last administered on 03/10/17 20:59; Admin Dose 300 MG; Start 03/02/17 at 21:00 Acetaminophen/ Hydrocodone Bitart ([place] (10/325)) 1 tab Q4H PRN PO PAIN Last administered on 03/10/17 21:08; Admin Dose 1 TAB; Start 03/02/17 at 18:00 Ropinirole HCl (Requip) 0.5 mg HS PO Last administered on 03/10/17 20:59; Admin Dose 0.5 MG; Start 03/02/17 at 21:00 Atorvastatin Calcium (Lipitor) 20 mg HS PO Last administered on 03/10/17 20:59 ; Admin Dose 20 MG; Start 03/02/17 at 21:00 Enoxaparin Sodium (Lovenox) 40 mg DAILY SC Last administered on 03/10/17 09:27 ; Admin Dose 40 MG; Start 03/03/17 at 09:00 Hydromorphone HCl (Dilaudid) 1 mg Q4H PRN IV PAIN Last administered on 17:52; Admin Dose 1 MG; Start 03/02/17 at 18:00 Acetaminophen (Tylenol Tab) 650 mg Q4H PRN PO PAIN AND OR ELEVATED TEMP Last administered on 03/07/17 13:23; Admin Dose 650 MG; Start 03/02/17 at 18:00 Losartan Potassium (Cozaar) 50 mg DAILY PO Last administered on 03/10/17 09:20 ; Admin Dose 50 MG; Start 03/03/17 at 09:00 Hydrochlorothiazide (Hydrochlorothiazide) 12.5 mg DAILY PO Last administered on 03/10/17 09:20; Admin Dose 12.5 MG; Start 03/03/17 at 09:00 Pantoprazole (Protonix Tab) 40 mg DAILY@06 PO Last administered on 03/10/17 05 :40; Admin Dose 40 MG; Start 03/03/17 at 06:00 Al Hydrox/Mg Hydrox/Simethicone (Mag-Al Plus) 30 ml Q4H PRN PO HEART BURN; Start 03/02/17 at 22:00 Nicotine (Nicoderm 21 Mg/ 24hr) 1 patch DAILY@21 TRANSDERM Last administered on 03/10/17 21:00; Admin Dose 1 PATCH; Start 03/05/17 at 21:00 Lorazepam 1 mg 1 mg Q4H PRN PO ANXIETY; Start 03/06/17 at 16:30 Vancomycin HCl/ Sodium Chloride (Vancocin/NS) 250 ml @ 83.333 mls/ hr Q12H IVPB Last administered on 03/10/17 16:10; Admin Dose 83.333 MLS/HR; Start at 16:00 Miscellaneous Information (*Rx Drug Level Order Reminder*) VANCOMYCIN TROUGH AT 1500 ONCE ONCE XX ; Start 03/11/17 at 15:00; Stop 03/11/17 at 15:01 HÉCTOR ON M.D. Mar 10, 2017 21:25
[2017-03-11] MEDS: VANCOMYCIN 1.5 GM in SOD CHLORIDE 0.9% 250 ML IVPB SCH ×2 (04:12→18:25)
[2017-03-11] MEDS: PANTOPRAZOLE (EC) 40 MG TAB PO SCH (05:52)
[2017-03-11 06:34] LABS: ADD SCAN DIFF NO
[2017-03-11 06:52] LABS: BASOPHIL # 0.1 10^3/ul (0.0-0.1); BASOPHILS % 0.6 % (0.0-2.0); EOSINOPHILS # 0.3 10^3/ul (0.0-0.5); EOSINOPHILS % 2.9 % (0.0-7.0); HEMATOCRIT 39.4 % (42.0-52.0); HEMOGLOBIN 13.3 g/dl (14.0-18.0); LYMPHOCYTES # 1.7 10^3/ul (0.8-2.9); MEAN CORPUSCULAR HEMOGLOBIN 29.9 pg (29.0-33.0); MEAN CORPUSCULAR HGB CONC 33.8 g/dl (32.0-37.0); MEAN CORPUSCULAR VOLUME 88.5 fl (82.0-101.0); MEAN PLATELET VOLUME 10.5 fl (7.4-10.4); MONOCYTES % 9.5 % (0.0-11.0); NEUTROPHIL # 7.5 10^3/ul (1.6-7.5); NEUTROPHILS % 69.2 % (39.0-77.0); PLATELET COUNT 258 10^3/UL (140-415); RED BLOOD COUNT 4.45 10^6/ul (4.70-6.10); RED CELL DISTRIBUTION WIDTH 12.8 % (11.5-14.5); WHITE BLOOD COUNT 10.8 10^3/ul (4.8-10.8)
[2017-03-11 07:03] LABS: CALCIUM 9.8 mg/dl (8.4-10.2); CREATININE 0.89 mg/dl (0.61-1.24); POTASSIUM 4.7 mmol/L (3.5-5.1)
[2017-03-11 08:22] VITALS: BP 120/65; PULSE 67; RESP 16
[2017-03-11] MEDS: CLOPIDOGREL 75 MG TAB PO SCH (08:26)
[2017-03-11] MEDS: LOSARTAN 50 MG TAB PO SCH (08:26)
[2017-03-11] MEDS: HYDROCHLOROTHIAZIDE 12.5 MG CAP PO SCH (08:27)
[2017-03-11] MEDS: GABAPENTIN 300 MG CAP PO SCH ×3 (08:27→20:51)
[2017-03-11] MEDS: ASPIRIN (EC) 81 MG TAB PO SCH (08:27)
[2017-03-11] MEDS: ENOXAPARIN 40 MG/0.4 ML SYG SC SCH (08:38)
--- NOTE | 2017-03-11 11:12 | CONS ---
[facility] Name: Chris El Unit Number: [id number] Date of : 1960 Patient Status: Admitted Inpatient Attending Doctor: Angélica Huston MD Edit: HÉCTOR ISBELL M.D. on 03/12/17 @ 10:56 Akilah attestation: I discussed the management with DIAN Morrissey and agree with below Date/Time of Note Date/Time of Note DATE: 03/11/17 TIME: 11:06 Consult Date/Type/Reason Admit Date/Time Mar 02, 2017 at 12:28 Initial Consult Date 03/03/17 Type of Consultation: Infectious Disease Ordering Provider: ANGÉLICA HUSTON MD Subjective right foot feels much better, no numbness or tingling, tired of being in a hospital and ready to go home Objective Vital Signs Date Time Temp Pulse Resp B/P Pulse Ox O2 Delivery O2 Flow Rate FiO2 03/11/17 08:22 97.8 67 16 120/65 97 03/08/17 23:00 Room Air Intake and Output 03/10/17 03/10/17 03/11/17 15:00 23:00 07:00 Intake Total 100 ml 1690 ml 150 ml Balance 100 ml 1690 ml 150 ml Exam Constitutional: obese male lying in bed in no acute distress Head: atraumatic, normocephalic Eyes: normal sclera Neck: supple Respiratory: clear to auscultation, normal air movement Cardiovascular: normal pulses, regular rate and rhythm Gastrointestinal: obese, soft, non-tender and non-distended Musculoskeletal: normal extremities to inspection, clean and dry dressing to left 2nd toe Extremities: 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, RUE PICC with no e/o infection, no edema Neurological: normal speech, alert and oriented other Skin: no rash or lesions, left 2nd toe dressing intact, no visible drainage or odor Results/Medications Result Diagram: 03/11/17 0550 03/11/17 0550 Results 24 hrs Laboratory Tests Test 03/11/17 05:50 White Blood Count 10.8 Red Blood Count 4.45 L Hemoglobin 13.3 L Hematocrit 39.4 L Mean Corpuscular Volume 88.5 Mean Corpuscular Hemoglobin 29.9 Mean Corpuscular Hemoglobin Concent 33.8 Red Cell Distribution Width 12.8 Platelet Count 258 Mean Platelet Volume 10.5 H Neutrophils % 69.2 Lymphocytes % 16.0 Monocytes % 9.5 Eosinophils % 2.9 Basophils % 0.6 Nucleated Red Blood Cells % 0.0 Neutrophils # 7.5 Lymphocytes # 1.7 Monocytes # 1.0 H Eosinophils # 0.3 Basophils # 0.1 Nucleated Red Blood Cells # 0.0 Sodium Level 140 Potassium Level 4.7 Chloride Level 106 Carbon Dioxide Level 24 Anion Gap 15 Blood Urea Nitrogen 25 H Creatinine 0.89 Glucose Level 86 Calcium Level 9.8 Medications Current Medications Aspirin (Halfprin) 81 mg DAILY PO Last administered on 03/11/17 08:27; Admin Dose 81 MG; Start 03/03/17 at 09:00 Carisoprodol (Soma) 350 mg Q8 PRN PO MUSCLE SPASMS; Start 03/02/17 at 18:00 Carvedilol (Coreg) 25 mg BID PO Last administered on 03/11/17 08:26; Admin Dose 25 MG; Start 03/02/17 at 21:00 Clopidogrel Bisulfate (plaVIX) 75 mg DAILY PO Last administered on 03/11/17 08 :26; Admin Dose 75 MG; Start 03/03/17 at 09:00 Gabapentin (Neurontin) 300 mg TID PO Last administered on 03/11/17 08:27; Admin Dose 300 MG; Start 03/02/17 at 21:00 Acetaminophen/ Hydrocodone Bitart ([place] (10/325)) 1 tab Q4H PRN PO PAIN Last administered on 03/10/17 21:08; Admin Dose 1 TAB; Start 03/02/17 at 18:00 Ropinirole HCl (Requip) 0.5 mg HS PO Last administered on 03/10/17 20:59; Admin Dose 0.5 MG; Start 03/02/17 at 21:00 Atorvastatin Calcium (Lipitor) 20 mg HS PO Last administered on 03/10/17 20:59 ; Admin Dose 20 MG; Start 03/02/17 at 21:00 Enoxaparin Sodium (Lovenox) 40 mg DAILY SC Last administered on 03/11/17 08:38 ; Admin Dose 40 MG; Start 03/03/17 at 09:00 Hydromorphone HCl (Dilaudid) 1 mg Q4H PRN IV PAIN Last administered on 17:52; Admin Dose 1 MG; Start 03/02/17 at 18:00 Acetaminophen (Tylenol Tab) 650 mg Q4H PRN PO PAIN AND OR ELEVATED TEMP Last administered on 03/07/17 13:23; Admin Dose 650 MG; Start 03/02/17 at 18:00 Losartan Potassium (Cozaar) 50 mg DAILY PO Last administered on 03/11/17 08:26 ; Admin Dose 50 MG; Start 03/03/17 at 09:00 Hydrochlorothiazide (Hydrochlorothiazide) 12.5 mg DAILY PO Last administered on 03/11/17 08:27; Admin Dose 12.5 MG; Start 03/03/17 at 09:00 Pantoprazole (Protonix Tab) 40 mg DAILY@06 PO Last administered on 03/11/17 05 :52; Admin Dose 40 MG; Start 03/03/17 at 06:00 Al Hydrox/Mg Hydrox/Simethicone (Mag-Al Plus) 30 ml Q4H PRN PO HEART BURN; Start 03/02/17 at 22:00 Nicotine (Nicoderm 21 Mg/ 24hr) 1 patch DAILY@21 TRANSDERM Last administered on 03/10/17 21:00; Admin Dose 1 PATCH; Start 03/05/17 at 21:00 Lorazepam 1 mg 1 mg Q4H PRN PO ANXIETY; Start 03/06/17 at 16:30 Vancomycin HCl/ Sodium Chloride (Vancocin/NS) 250 ml @ 83.333 mls/ hr Q12H IVPB Last administered on 03/11/17 04:12; Admin Dose 83.333 MLS/HR; Start at 16:00 Miscellaneous Information (*Rx Drug Level Order Reminder*) VANCOMYCIN TROUGH AT 1500 ONCE ONCE XX ; Start 03/11/17 at 15:00; Stop 6/18/17 at 15:01 Assessment/Plan Chief Complaint/Hosp Course - skin and soft tissue infection with MRSA, possible erosion and OM of the tuft and undersurface of L 2nd distal phalanx (X Ray finding), probably involving the fixation pin as pus was expressed at its insertion site. s/p removal of the pin. ESR=20 - s/p L hammartoe repair on 01/29/2017 - s/p R hammartoe repair in 2016 - h/o skin and soft tissue infection of RLE - CAD s/p PCI - PVD - active smoker - moderate drinker - obesity - BMI 32.5 recommendations: - continue IV vancomycin (03/02/2017-), will need 4-6 weeks total - please order weekly CBC and BMP while Pt's on IV antibiotic for review by the ordering physician - outpatient ID f/u in 2 weeks Care and management discussed with patient, JENNIFER Green and DR. Isbell Problems: Additional Assessment/Plan Anticipate discharge home upon arrangement of Vancomycin pharmacy to dose by home health for 5 more weeks. RAFAEL MORRISSEY Mar 11, 2017 11:12
--- NOTE | 2017-03-11 14:38 | PN ---
Date/Time of Note Date/Time of Note DATE: 03/11/17 TIME: 14:32 Assessment/Plan VTE Prophylaxis VTE Prophylaxis Intervention: other Lines/Catheters [facility] ([facility] PICC Line Urinary Cath still in place: No Assessment/Plan Assessment/Plan - Left foot abscess with possible osteomyelitis and left leg cellulitis, possibly due to postoperative infection after recent left foot hammertoe surgery. Dr. Mendel skinner is following in infection disease consultation. Wound cultures growing MRSA, continue vancomycin for [address] Mcdaniel is following in podiatry consultation. - Hypertension. Continue Coreg. 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 Continue aspirin and Plavix. - Dyslipidemia. Continue Plavix. - Peripheral vascular disease. Dr. Red is following in vascular surgery consultation. - Tobacco dependence, cessation is advised, patient is continued on nicotine patch. Further recommendations based on clinical course. Discharge on hold due to some insurance issues. Plan of care discussed with Dr. Yadav. Exam/Review of Systems Vital Signs Vitals Vital Signs Date Time Temp Pulse Resp B/P Pulse Ox O2 Delivery O2 Flow Rate FiO2 03/11/17 08:22 97.8 67 16 120/65 97 03/08/17 23:00 Room Air Intake and Output 03/10/17 03/10/17 03/11/17 15:00 23:00 07:00 Intake Total 100 ml 1690 ml 150 ml Balance 100 ml 1690 ml 150 ml Exam Constitutional: alert Respiratory: clear to auscultation, normal air movement Cardiovascular: nl pulses, regular rate and rhythm Gastrointestinal: non-tender, soft Musculoskeletal: nl extremities to inspection Extremities: normal pulses Neurological: nl mental status, nl speech Results Result Diagram: 03/11/17 0550 03/11/17 0550 Results 24 hrs Laboratory Tests Test 03/11/17 05:50 White Blood Count 10.8 Red Blood Count 4.45 L Hemoglobin 13.3 L Hematocrit 39.4 L Mean Corpuscular Volume 88.5 Mean Corpuscular Hemoglobin 29.9 Mean Corpuscular Hemoglobin Concent 33.8 Red Cell Distribution Width 12.8 Platelet Count 258 Mean Platelet Volume 10.5 H Neutrophils % 69.2 Lymphocytes % 16.0 Monocytes % 9.5 Eosinophils % 2.9 Basophils % 0.6 Nucleated Red Blood Cells % 0.0 Neutrophils # 7.5 Lymphocytes # 1.7 Monocytes # 1.0 H Eosinophils # 0.3 Basophils # 0.1 Nucleated Red Blood Cells # 0.0 Sodium Level 140 Potassium Level 4.7 Chloride Level 106 Carbon Dioxide Level 24 Anion Gap 15 Blood Urea Nitrogen 25 H Creatinine 0.89 Glucose Level 86 Calcium Level 9.8 Medications Medications Current Medications Aspirin (Halfprin) 81 mg DAILY PO Last administered on 03/11/17 08:27; Admin Dose 81 MG; Start 03/03/17 at 09:00 Carisoprodol (Soma) 350 mg Q8 PRN PO MUSCLE SPASMS; Start 03/02/17 at 18:00 Carvedilol (Coreg) 25 mg BID PO Last administered on 03/11/17 08:26; Admin Dose 25 MG; Start 03/02/17 at 21:00 Clopidogrel Bisulfate (plaVIX) 75 mg DAILY PO Last administered on 03/11/17 08 :26; Admin Dose 75 MG; Start 03/03/17 at 09:00 Gabapentin (Neurontin) 300 mg TID PO Last administered on 03/11/17 12:22; Admin Dose 300 MG; Start 03/02/17 at 21:00 Acetaminophen/ Hydrocodone Bitart ([place] (10/325)) 1 tab Q4H PRN PO PAIN Last administered on 03/10/17 21:08; Admin Dose 1 TAB; Start 03/02/17 at 18:00 Ropinirole HCl (Requip) 0.5 mg HS PO Last administered on 03/10/17 20:59; Admin Dose 0.5 MG; Start 03/02/17 at 21:00 Atorvastatin Calcium (Lipitor) 20 mg HS PO Last administered on 03/10/17 20:59 ; Admin Dose 20 MG; Start 03/02/17 at 21:00 Enoxaparin Sodium (Lovenox) 40 mg DAILY SC Last administered on 03/11/17 08:38 ; Admin Dose 40 MG; Start 03/03/17 at 09:00 Hydromorphone HCl (Dilaudid) 1 mg Q4H PRN IV PAIN Last administered on 17:52; Admin Dose 1 MG; Start 03/02/17 at 18:00 Acetaminophen (Tylenol Tab) 650 mg Q4H PRN PO PAIN AND OR ELEVATED TEMP Last administered on 03/07/17 13:23; Admin Dose 650 MG; Start 03/02/17 at 18:00 Losartan Potassium (Cozaar) 50 mg DAILY PO Last administered on 03/11/17 08:26 ; Admin Dose 50 MG; Start 03/03/17 at 09:00 Hydrochlorothiazide (Hydrochlorothiazide) 12.5 mg DAILY PO Last administered on 03/11/17 08:27; Admin Dose 12.5 MG; Start 03/03/17 at 09:00 Pantoprazole (Protonix Tab) 40 mg DAILY@06 PO Last administered on 03/11/17 05 :52; Admin Dose 40 MG; Start 03/03/17 at 06:00 Al Hydrox/Mg Hydrox/Simethicone (Mag-Al Plus) 30 ml Q4H PRN PO HEART BURN; Start 03/02/17 at 22:00 Nicotine (Nicoderm 21 Mg/ 24hr) 1 patch DAILY@21 TRANSDERM Last administered on 03/10/17 21:00; Admin Dose 1 PATCH; Start 03/05/17 at 21:00 Lorazepam 1 mg 1 mg Q4H PRN PO ANXIETY; Start 03/06/17 at 16:30 Vancomycin HCl/ Sodium Chloride (Vancocin/NS) 250 ml @ 83.333 mls/ hr Q12H IVPB Last administered on 03/11/17 04:12; Admin Dose 83.333 MLS/HR; Start at 16:00 Miscellaneous Information (*Rx Drug Level Order Reminder*) VANCOMYCIN TROUGH AT 1500 ONCE ONCE XX ; Start 03/11/17 at 15:00; Stop 03/11/17 at 15:01 ROSELINE CAR Mar 11, 2017 14:38
[2017-03-11 20:04] VITALS: BP 131/69; RESP 18
[2017-03-11] MEDS: ROPINIROLE 0.25 MG TAB PO SCH (20:51)
[2017-03-11] MEDS: ATORVASTATIN 20 MG TAB PO SCH (20:51)
[2017-03-11] MEDS: NICOTINE (21 MG/24 HR) PATCH TRANSDERM SCH (20:52)
[2017-03-12] MEDS: VANCOMYCIN 1.5 GM in SOD CHLORIDE 0.9% 250 ML IVPB SCH ×2 (04:41→16:44)
[2017-03-12] MEDS: PANTOPRAZOLE (EC) 40 MG TAB PO SCH (05:45)
[2017-03-12 06:24] LABS: ADD SCAN DIFF NO
[2017-03-12 06:28] LABS: BASOPHIL # 0.1 10^3/ul (0.0-0.1); BASOPHILS % 0.6 % (0.0-2.0); EOSINOPHILS # 0.3 10^3/ul (0.0-0.5); EOSINOPHILS % 2.6 % (0.0-7.0); HEMATOCRIT 39.4 % (42.0-52.0); HEMOGLOBIN 12.8 g/dl (14.0-18.0); LYMPHOCYTES # 2.3 10^3/ul (0.8-2.9); LYMPHOCYTES % 18.2 % (15.0-51.0); MEAN CORPUSCULAR HEMOGLOBIN 29.4 pg (29.0-33.0); MEAN CORPUSCULAR HGB CONC 32.5 g/dl (32.0-37.0); MEAN CORPUSCULAR VOLUME 90.4 fl (82.0-101.0); MEAN PLATELET VOLUME 10.6 fl (7.4-10.4); MONOCYTE # 1.1 10^3/ul (0.3-0.9); MONOCYTES % 8.6 % (0.0-11.0); NEUTROPHIL # 8.5 10^3/ul (1.6-7.5); NEUTROPHILS % 68.2 % (39.0-77.0); PLATELET COUNT 242 10^3/UL (140-415); RED BLOOD COUNT 4.36 10^6/ul (4.70-6.10); RED CELL DISTRIBUTION WIDTH 12.9 % (11.5-14.5); WHITE BLOOD COUNT 12.5 10^3/ul (4.8-10.8)
[2017-03-12 07:00] LABS: CALCIUM 9.4 mg/dl (8.4-10.2); CREATININE 0.99 mg/dl (0.61-1.24); POTASSIUM 3.8 mmol/L (3.5-5.1)
[2017-03-12 07:42] VITALS: BP 123/68; RESP 18
[2017-03-12] MEDS: LOSARTAN 50 MG TAB PO SCH (09:07)
[2017-03-12] MEDS: GABAPENTIN 300 MG CAP PO SCH ×3 (09:07→21:27)
[2017-03-12] MEDS: ENOXAPARIN 40 MG/0.4 ML SYG SC SCH (09:07)
[2017-03-12] MEDS: CLOPIDOGREL 75 MG TAB PO SCH (09:08)
[2017-03-12] MEDS: ASPIRIN (EC) 81 MG TAB PO SCH (09:08)
[2017-03-12] MEDS: HYDROCHLOROTHIAZIDE 12.5 MG CAP PO SCH (09:08)
--- NOTE | 2017-03-12 11:57 | CONS ---
Date/Time of Note Date/Time of Note DATE: 03/12/17 TIME: 11:55 Assessment/Plan Assessment/Plan Chief Complaint/Hosp Course - skin and soft tissue infection with MRSA, possible erosion and OM of the tuft and undersurface of L 2nd distal phalanx (X Ray finding), probably involving the fixation pin as pus was expressed at its insertion site. s/p removal of the pin. ESR=20 - s/p L hammartoe repair on 01/29/2017 - s/p R hammartoe repair in 2016 - h/o skin and soft tissue infection of RLE - CAD s/p PCI - PVD - active smoker - moderate drinker - obesity - BMI 32.5 recommendations: - continue IV vancomycin (03/02/2017-), will need 4-6 weeks total - please order weekly CBC and BMP while Pt's on IV antibiotic for review by the ordering physician - outpatient ID f/u in 2 weeks management d/w Pt Problems: Consultation Date/Type/Reason Admit Date/Time Mar 02, 2017 at 12:28 Initial Consult Date 03/03/17 Type of Consultation: Infectious Disease Referring Provider: ANGÉLICA HUSTON MD 24 HR Interval Summary Constitutional: no complaints Detailed Summary Eyes: no complaints ENT: no complaints Respiratory: no complaints Cardiovascular: no complaints Gastrointestinal: no complaints Genitourinary: no complaints Musculoskeletal: bone/joint pain (only when he plantar flex his L toes against active resistance) Skin: laceration (wound of his L 2nd toe has closed) Exam/Review of Systems Vital Signs Vitals Vital Signs Date Time Temp Pulse Resp B/P Pulse Ox O2 Delivery O2 Flow Rate FiO2 03/12/17 07:42 98.3 71 18 123/68 96 03/08/17 23:00 Room Air Intake and Output 03/11/17 03/11/17 03/12/17 15:00 23:00 07:00 Intake Total 250 ml 250 ml 484 ml Balance 250 ml 250 ml 484 ml Exam Constitutional: alert, oriented, well developed Psych: nl mood/affect, no complaints Head: atraumatic, normocephalic Eyes: nl conjunctiva, nl lids ENMT: nl external ears & nose, nl nasal mucosa & septum Neck: supple Musculoskeletal: swelling (trace, L 2nd toe and foot), No joint tenderness Skin: rash or lesions (L 2nd toe: closed with scabs, no purulence) Results Result Diagram: 03/12/17 0543 03/12/17 0543 Results 24 hrs Laboratory Tests Test 03/11/17 15:24 03/12/17 05:43 Vancomycin Level Trough 15.4 White Blood Count 12.5 H Red Blood Count 4.36 L Hemoglobin 12.8 L Hematocrit 39.4 L Mean Corpuscular Volume 90.4 Mean Corpuscular Hemoglobin 29.4 Mean Corpuscular Hemoglobin Concent 32.5 Red Cell Distribution Width 12.9 Platelet Count 242 Mean Platelet Volume 10.6 H Neutrophils % 68.2 Lymphocytes % 18.2 Monocytes % 8.6 Eosinophils % 2.6 Basophils % 0.6 Nucleated Red Blood Cells % 0.0 Neutrophils # 8.5 H Lymphocytes # 2.3 Monocytes # 1.1 H Eosinophils # 0.3 Basophils # 0.1 Nucleated Red Blood Cells # 0.0 Sodium Level 139 Potassium Level 3.8 Chloride Level 103 Carbon Dioxide Level 26 Anion Gap 14 Blood Urea Nitrogen 24 H Creatinine 0.99 Glucose Level 116 Calcium Level 9.4 Medications Medications Current Medications Aspirin (Halfprin) 81 mg DAILY PO Last administered on 03/12/17 09:08; Admin Dose 81 MG; Start 03/03/17 at 09:00 Carisoprodol (Soma) 350 mg Q8 PRN PO MUSCLE SPASMS; Start 03/02/17 at 18:00 Carvedilol (Coreg) 25 mg BID PO Last administered on 03/12/17 09:08; Admin Dose 25 MG; Start 03/02/17 at 21:00 Clopidogrel Bisulfate (plaVIX) 75 mg DAILY PO Last administered on 03/12/17 09 :08; Admin Dose 75 MG; Start 03/03/17 at 09:00 Gabapentin (Neurontin) 300 mg TID PO Last administered on 03/12/17 09:07; Admin Dose 300 MG; Start 03/02/17 at 21:00 Acetaminophen/ Hydrocodone Bitart ([place] (10/325)) 1 tab Q4H PRN PO PAIN Last administered on 03/10/17 21:08; Admin Dose 1 TAB; Start 03/02/17 at 18:00 Ropinirole HCl (Requip) 0.5 mg HS PO Last administered on 03/11/17 20:51; Admin Dose 0.5 MG; Start 03/02/17 at 21:00 Atorvastatin Calcium (Lipitor) 20 mg HS PO Last administered on 03/11/17 20:51 ; Admin Dose 20 MG; Start 03/02/17 at 21:00 Enoxaparin Sodium (Lovenox) 40 mg DAILY SC Last administered on 03/12/17 09:07 ; Admin Dose 40 MG; Start 03/03/17 at 09:00 Hydromorphone HCl (Dilaudid) 1 mg Q4H PRN IV PAIN Last administered on 17:52; Admin Dose 1 MG; Start 03/02/17 at 18:00 Acetaminophen (Tylenol Tab) 650 mg Q4H PRN PO PAIN AND OR ELEVATED TEMP Last administered on 03/07/17 13:23; Admin Dose 650 MG; Start 03/02/17 at 18:00 Losartan Potassium (Cozaar) 50 mg DAILY PO Last administered on 03/12/17 09:07 ; Admin Dose 50 MG; Start 03/03/17 at 09:00 Hydrochlorothiazide (Hydrochlorothiazide) 12.5 mg DAILY PO Last administered on 03/12/17 09:08; Admin Dose 12.5 MG; Start 03/03/17 at 09:00 Pantoprazole (Protonix Tab) 40 mg DAILY@06 PO Last administered on 03/12/17 05 :45; Admin Dose 40 MG; Start 03/03/17 at 06:00 Al Hydrox/Mg Hydrox/Simethicone (Mag-Al Plus) 30 ml Q4H PRN PO HEART BURN; Start 03/02/17 at 22:00 Nicotine (Nicoderm 21 Mg/ 24hr) 1 patch DAILY@21 TRANSDERM Last administered on 03/11/17 20:52; Admin Dose 1 PATCH; Start 03/05/17 at 21:00 Lorazepam 1 mg 1 mg Q4H PRN PO ANXIETY; Start 03/06/17 at 16:30 Vancomycin HCl/ Sodium Chloride (Vancocin/NS) 250 ml @ 83.333 mls/ hr Q12H IVPB Last administered on 03/12/17 04:41; Admin Dose 83.333 MLS/HR; Start at 16:00 HÉCTOR NO M.D. Mar 12, 2017 11:57
--- NOTE | 2017-03-12 18:04 | PN ---
Date/Time of Note Date/Time of Note DATE: 03/12/17 TIME: 18:03 Assessment/Plan VTE Prophylaxis VTE Prophylaxis Intervention: SCD's Lines/Catheters IV Catheter Type (from Nrs): PICC Line Central line still needed: Yes Urinary Cath still in place: No Assessment/Plan Chief Complaint/Hosp Course Patient remains hemodynamically stable pain is well controlled. Pending insurance approval for home health antibiotics for 5 week more weeks. Assessment/Plan - Left foot abscess with possible osteomyelitis and left leg cellulitis, possibly due to postoperative infection after recent left foot hammertoe surgery. Dr. Mendel skinner is following in infection disease consultation. Wound cultures growing MRSA, continue vancomycin for [address] Mcdaniel is following in podiatry consultation. - Hypertension. Continue Coreg. 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 Continue aspirin and Plavix. - Dyslipidemia. Continue Plavix. - Peripheral vascular disease. Dr. Red is following in vascular surgery consultation. - Tobacco dependence, cessation is advised, patient is continued on nicotine patch. Further recommendations based on clinical course. Plan of care discussed with Dr. Yadav. Problems: Exam/Review of Systems Vital Signs Vitals Vital Signs Date Time Temp Pulse Resp B/P Pulse Ox O2 Delivery O2 Flow Rate FiO2 03/12/17 07:42 98.3 71 18 123/68 96 03/08/17 23:00 Room Air Intake and Output 03/11/17 03/11/17 03/12/17 15:00 23:00 07:00 Intake Total 250 ml 250 ml 484 ml Balance 250 ml 250 ml 484 ml Exam Constitutional: alert, oriented Neck: supple Respiratory: normal air movement Cardiovascular: nl pulses Gastrointestinal: non-tender, soft Extremities: other (Left foot swelling and erythema, improved) Right upper extremity PICC line Results Result Diagram: 03/12/17 0543 03/12/17 0543 Results 24 hrs Laboratory Tests Test 03/12/17 05:43 White Blood Count 12.5 H Red Blood Count 4.36 L Hemoglobin 12.8 L Hematocrit 39.4 L Mean Corpuscular Volume 90.4 Mean Corpuscular Hemoglobin 29.4 Mean Corpuscular Hemoglobin Concent 32.5 Red Cell Distribution Width 12.9 Platelet Count 242 Mean Platelet Volume 10.6 H Neutrophils % 68.2 Lymphocytes % 18.2 Monocytes % 8.6 Eosinophils % 2.6 Basophils % 0.6 Nucleated Red Blood Cells % 0.0 Neutrophils # 8.5 H Lymphocytes # 2.3 Monocytes # 1.1 H Eosinophils # 0.3 Basophils # 0.1 Nucleated Red Blood Cells # 0.0 Sodium Level 139 Potassium Level 3.8 Chloride Level 103 Carbon Dioxide Level 26 Anion Gap 14 Blood Urea Nitrogen 24 H Creatinine 0.99 Glucose Level 116 Calcium Level 9.4 Medications Medications Current Medications Aspirin (Halfprin) 81 mg DAILY PO Last administered on 03/12/17 09:08; Admin Dose 81 MG; Start 03/03/17 at 09:00 Carisoprodol (Soma) 350 mg Q8 PRN PO MUSCLE SPASMS; Start 03/02/17 at 18:00 Carvedilol (Coreg) 25 mg BID PO Last administered on 03/12/17 09:08; Admin Dose 25 MG; Start 03/02/17 at 21:00 Clopidogrel Bisulfate (plaVIX) 75 mg DAILY PO Last administered on 03/12/17 09 :08; Admin Dose 75 MG; Start 03/03/17 at 09:00 Gabapentin (Neurontin) 300 mg TID PO Last administered on 03/12/17 13:23; Admin Dose 300 MG; Start 03/02/17 at 21:00 Acetaminophen/ Hydrocodone Bitart ([place] (10/325)) 1 tab Q4H PRN PO PAIN Last administered on 03/10/17 21:08; Admin Dose 1 TAB; Start 03/02/17 at 18:00 Ropinirole HCl (Requip) 0.5 mg HS PO Last administered on 03/11/17 20:51; Admin Dose 0.5 MG; Start 03/02/17 at 21:00 Atorvastatin Calcium (Lipitor) 20 mg HS PO Last administered on 03/11/17 20:51 ; Admin Dose 20 MG; Start 03/02/17 at 21:00 Enoxaparin Sodium (Lovenox) 40 mg DAILY SC Last administered on 03/12/17 09:07 ; Admin Dose 40 MG; Start 03/03/17 at 09:00 Hydromorphone HCl (Dilaudid) 1 mg Q4H PRN IV PAIN Last administered on 17:52; Admin Dose 1 MG; Start 03/02/17 at 18:00 Acetaminophen (Tylenol Tab) 650 mg Q4H PRN PO PAIN AND OR ELEVATED TEMP Last administered on 03/07/17 13:23; Admin Dose 650 MG; Start 03/02/17 at 18:00 Losartan Potassium (Cozaar) 50 mg DAILY PO Last administered on 03/12/17 09:07 ; Admin Dose 50 MG; Start 03/03/17 at 09:00 Hydrochlorothiazide (Hydrochlorothiazide) 12.5 mg DAILY PO Last administered on 03/12/17 09:08; Admin Dose 12.5 MG; Start 03/03/17 at 09:00 Pantoprazole (Protonix Tab) 40 mg DAILY@06 PO Last administered on 03/12/17 05 :45; Admin Dose 40 MG; Start 03/03/17 at 06:00 Al Hydrox/Mg Hydrox/Simethicone (Mag-Al Plus) 30 ml Q4H PRN PO HEART BURN; Start 03/02/17 at 22:00 Nicotine (Nicoderm 21 Mg/ 24hr) 1 patch DAILY@21 TRANSDERM Last administered on 03/11/17 20:52; Admin Dose 1 PATCH; Start 03/05/17 at 21:00 Lorazepam 1 mg 1 mg Q4H PRN PO ANXIETY; Start 03/06/17 at 16:30 Vancomycin HCl/ Sodium Chloride (Vancocin/NS) 250 ml @ 83.333 mls/ hr Q12H IVPB Last administered on 03/12/17 16:44; Admin Dose 83.333 MLS/HR; Start at 16:00 TARIQ HI Mar 12, 2017 18:04
[2017-03-12 20:00] VITALS: BP 146/67; RESP 20
--- NOTE | 2017-03-12 21:09 | PN ---
Date/Time of Note Date/Time of Note DATE: 03/12/17 TIME: 21:08 Assessment/Plan Lines/Catheters IV Catheter Type (from [facility]): PICC Line Maxwell in Place (from [facility]): No Assessment/Plan Chief Complaint/Hosp Course -Bilateral lower extremity atherosclerosis with left lower extremity nonhealing second toe. It seems the patient has some component of atherosclerotic disease as what he describes as short distance claudication. Upon noninvasive vascular studies no flow limiting stenosis was identified, however will follow pts progress as outpt for vascular surveillance and his claudication. no further intervention at this time. -Bilateral lower extremity venous insufficiency: will schedule the patient to undergo reflux studies as an outpt -Optimize vascular status (BP meds, diet, nutrition, exercise, sugar control, antiplatelet.) -Recommend weight loss and tobacco cessation. -Discussed findings, plan, and management with the patient, and he understands. -Thank you for allowing us to partake in the care of your patient. Please call with any questions. Problems: Subjective 24 Hr Interval Summary no new vascular events overnight Exam/Review of Systems Vital Signs Vitals Vital Signs Date Time Temp Pulse Resp B/P Pulse Ox O2 Delivery O2 Flow Rate FiO2 03/12/17 20:00 98.4 70 20 146/67 99 03/08/17 23:00 Room Air Intake and Output 03/11/17 03/11/17 03/12/17 15:00 23:00 07:00 Intake Total 250 ml 250 ml 484 ml Balance 250 ml 250 ml 484 ml Exam Free Text/Dictation GENERAL: Alert and oriented x3, PULMONARY: Clear to auscultation bilaterally CARDIOVASCULAR: S1, S2 present. ABDOMEN: Soft, nontender, nondistended. Bowel sounds positive. Truncal obesity. RIGHT LOWER EXTREMITY: Palpable femoral pulse. Faint pedal pulse. Motor, sensory intact. Cap refill 3 to 4 seconds. No surgical scars. LEFT LOWER EXTREMITY: Palpable femoral pulse. No pedal pulse (possibly secondary to edema.) Motor, sensory intact. Cap refill 3 seconds. Left second toe erythema resolved Results Result Diagram: 03/12/17 0543 03/12/17 0543 WILIAN CHRISTINE MD Mar 12, 2017 21:08
[2017-03-12] MEDS: NICOTINE (21 MG/24 HR) PATCH TRANSDERM SCH (21:27)
[2017-03-12] MEDS: ATORVASTATIN 20 MG TAB PO SCH (21:27)
[2017-03-12] MEDS: ROPINIROLE 0.25 MG TAB PO SCH (21:27)
[2017-03-13] MEDS: VANCOMYCIN 1.5 GM in SOD CHLORIDE 0.9% 250 ML IVPB SCH ×2 (04:08→15:52)
[2017-03-13] MEDS: PANTOPRAZOLE (EC) 40 MG TAB PO SCH (06:06)
[2017-03-13 06:29] LABS: ADD SCAN DIFF NO
[2017-03-13 06:42] LABS: BASOPHIL # 0.1 10^3/ul (0.0-0.1); BASOPHILS % 0.5 % (0.0-2.0); EOSINOPHILS # 0.4 10^3/ul (0.0-0.5); HEMATOCRIT 40.8 % (42.0-52.0); HEMOGLOBIN 13.8 g/dl (14.0-18.0); LYMPHOCYTES # 1.9 10^3/ul (0.8-2.9); LYMPHOCYTES % 16.7 % (15.0-51.0); MEAN CORPUSCULAR HEMOGLOBIN 30.3 pg (29.0-33.0); MEAN CORPUSCULAR HGB CONC 33.8 g/dl (32.0-37.0); MEAN CORPUSCULAR VOLUME 89.5 fl (82.0-101.0); MEAN PLATELET VOLUME 11.2 fl (7.4-10.4); MONOCYTES % 8.6 % (0.0-11.0); NEUTROPHIL # 8.1 10^3/ul (1.6-7.5); NEUTROPHILS % 69.2 % (39.0-77.0); PLATELET COUNT 333 10^3/UL (140-415); RED BLOOD COUNT 4.56 10^6/ul (4.70-6.10); RED CELL DISTRIBUTION WIDTH 13.2 % (11.5-14.5); WHITE BLOOD COUNT 11.7 10^3/ul (4.8-10.8)
[2017-03-13 07:39] LABS: CALCIUM 9.8 mg/dl (8.4-10.2); CREATININE 0.96 mg/dl (0.61-1.24); POTASSIUM 4.4 mmol/L (3.5-5.1)
[2017-03-13 07:51] VITALS: BP 149/85; RESP 18
[2017-03-13] MEDS: GABAPENTIN 300 MG CAP PO SCH ×3 (09:16→21:28)
[2017-03-13] MEDS: CLOPIDOGREL 75 MG TAB PO SCH (09:16)
[2017-03-13] MEDS: LOSARTAN 50 MG TAB PO SCH (09:17)
[2017-03-13] MEDS: HYDROCHLOROTHIAZIDE 12.5 MG CAP PO SCH (09:17)
[2017-03-13] MEDS: ASPIRIN (EC) 81 MG TAB PO SCH (09:17)
[2017-03-13] MEDS: ENOXAPARIN 40 MG/0.4 ML SYG SC SCH (09:45)
--- NOTE | 2017-03-13 11:53 | CONS ---
Date/Time of Note Date/Time of Note DATE: 03/13/17 TIME: 11:39 Assessment/Plan Assessment/Plan Chief Complaint/Hosp Course - skin and soft tissue infection with MRSA, possible erosion and OM of the tuft and undersurface of L 2nd distal phalanx (X Ray finding), probably involving the fixation pin as pus was expressed at its insertion site. s/p removal of the pin. ESR=20 - s/p L hammartoe repair on 01/29/2017 - s/p R hammartoe repair in 2016 - h/o skin and soft tissue infection of RLE - CAD s/p PCI - PVD - active smoker - moderate drinker - obesity - BMI 32.5 recommendations: - continue IV vancomycin (03/02/2017-), will need 4 (03/30/2017) - 6 (04/13/2017) weeks total. Pt wants to shorten the course of treatment. Pt feels that IV antibiotic infusion via PICC limits his life significantly in particular his job. He understand that shortening a course of his IV antibiotic leads to incomplete treatment and may cause recurrent infection in the future. 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 He feels that he can tolerate IV antibiotic infusion for 2 weeks; I recommended that his response to treatment and his opinion be discussed at his follow up appointments, and then decide the treatment plan beyond two weeks. Pt agreed. - please order weekly CBC and BMP while Pt's on IV antibiotic for review by the ordering physician - outpatient ID f/u in 1 week management d/w Pt the total time I took to care for this Pt today was from 1050 to 1130 Problems: Consultation Date/Type/Reason Admit Date/Time Mar 02, 2017 at 12:28 Initial Consult Date 03/03/17 Type of Consultation: Infectious Disease Referring Provider: ANGÉLICA HUSTON MD 24 HR Interval Summary Constitutional: no complaints Detailed Summary Eyes: no complaints ENT: no complaints Respiratory: no complaints Cardiovascular: no complaints Gastrointestinal: no complaints Genitourinary: no complaints Musculoskeletal: other (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), No bone/joint pain Skin: skin lesions (wound of L 2nd toe has closed) Exam/Review of Systems Vital Signs Vitals Vital Signs Date Time Temp Pulse Resp B/P Pulse Ox O2 Delivery O2 Flow Rate FiO2 03/13/17 07:51 98.3 72 18 149/85 99 Intake and Output 03/12/17 03/12/17 03/13/17 15:00 23:00 07:00 Intake Total 250 ml 1510 ml 500 ml Balance 250 ml 1510 ml 500 ml Exam Constitutional: alert, oriented, well developed Psych: no complaints Head: atraumatic, normocephalic Eyes: nl conjunctiva, nl lids ENMT: nl external ears & nose Neck: supple Musculoskeletal: swelling (trace, L foot) Extremities: No edema Neurological: other (sensation is intact) Skin: rash or lesions (L 2nd toe: closed with scab) Results Result Diagram: 03/13/17 0413 03/13/17 0540 Results 24 hrs Laboratory Tests Test 03/13/17 04:13 03/13/17 05:40 White Blood Count 11.7 H Red Blood Count 4.56 L Hemoglobin 13.8 L Hematocrit 40.8 L Mean Corpuscular Volume 89.5 Mean Corpuscular Hemoglobin 30.3 Mean Corpuscular Hemoglobin Concent 33.8 Red Cell Distribution Width 13.2 Platelet Count 333 # Mean Platelet Volume 11.2 H Neutrophils % 69.2 Lymphocytes % 16.7 Monocytes % 8.6 Eosinophils % 3.0 Basophils % 0.5 Nucleated Red Blood Cells % 0.0 Neutrophils # 8.1 H Lymphocytes # 1.9 Monocytes # 1.0 H Eosinophils # 0.4 Basophils # 0.1 Nucleated Red Blood Cells # 0.0 Sodium Level 137 Potassium Level 4.4 Chloride Level 103 Carbon Dioxide Level 26 Anion Gap 12 Blood Urea Nitrogen 24 H Creatinine 0.96 Glucose Level 89 Calcium Level 9.8 Medications Medications Current Medications Aspirin (Halfprin) 81 mg DAILY PO Last administered on 03/13/17 09:17; Admin Dose 81 MG; Start 03/03/17 at 09:00 Carisoprodol (Soma) 350 mg Q8 PRN PO MUSCLE SPASMS; Start 03/02/17 at 18:00 Carvedilol (Coreg) 25 mg BID PO Last administered on 03/13/17 09:17; Admin Dose 25 MG; Start 03/02/17 at 21:00 Clopidogrel Bisulfate (plaVIX) 75 mg DAILY PO Last administered on 03/13/17 09 :16; Admin Dose 75 MG; Start 03/03/17 at 09:00 Gabapentin (Neurontin) 300 mg TID PO Last administered on 03/13/17 09:16; Admin Dose 300 MG; Start 03/02/17 at 21:00 Acetaminophen/ Hydrocodone Bitart ([place] (10/325)) 1 tab Q4H PRN PO PAIN Last administered on 03/10/17 21:08; Admin Dose 1 TAB; Start 03/02/17 at 18:00 Ropinirole HCl (Requip) 0.5 mg HS PO Last administered on 03/12/17 21:27; Admin Dose 0.5 MG; Start 03/02/17 at 21:00 Atorvastatin Calcium (Lipitor) 20 mg HS PO Last administered on 03/12/17 21:27 ; Admin Dose 20 MG; Start 03/02/17 at 21:00 Enoxaparin Sodium (Lovenox) 40 mg DAILY SC Last administered on 03/13/17 09:45 ; Admin Dose 40 MG; Start 03/03/17 at 09:00 Hydromorphone HCl (Dilaudid) 1 mg Q4H PRN IV PAIN Last administered on 17:52; Admin Dose 1 MG; Start 03/02/17 at 18:00 Acetaminophen (Tylenol Tab) 650 mg Q4H PRN PO PAIN AND OR ELEVATED TEMP Last administered on 03/07/17 13:23; Admin Dose 650 MG; Start 03/02/17 at 18:00 Losartan Potassium (Cozaar) 50 mg DAILY PO Last administered on 03/13/17 09:17 ; Admin Dose 50 MG; Start 03/03/17 at 09:00 Hydrochlorothiazide (Hydrochlorothiazide) 12.5 mg DAILY PO Last administered on 03/13/17 09:17; Admin Dose 12.5 MG; Start 03/03/17 at 09:00 Pantoprazole (Protonix Tab) 40 mg DAILY@06 PO Last administered on 03/13/17 06 :06; Admin Dose 40 MG; Start 03/03/17 at 06:00 Al Hydrox/Mg Hydrox/Simethicone (Mag-Al Plus) 30 ml Q4H PRN PO HEART BURN; Start 03/02/17 at 22:00 Nicotine (Nicoderm 21 Mg/ 24hr) 1 patch DAILY@21 TRANSDERM Last administered on 03/12/17 21:27; Admin Dose 1 PATCH; Start 03/05/17 at 21:00 Lorazepam 1 mg 1 mg Q4H PRN PO ANXIETY; Start 03/06/17 at 16:30 Vancomycin HCl/ Sodium Chloride (Vancocin/NS) 250 ml @ 83.333 mls/ hr Q12H IVPB Last administered on 03/13/17 04:08; Admin Dose 83.333 MLS/HR; Start at 16:00 HÉCTOR NO M.D. Mar 13, 2017 11:53
--- NOTE | 2017-03-13 18:23 | PN ---
Date/Time of Note Date/Time of Note DATE: 03/13/17 TIME: 18:21 Assessment/Plan VTE Prophylaxis VTE Prophylaxis Intervention: SCD's Lines/Catheters IV Catheter Type (from Nrs): PICC Line Central line still needed: Yes Urinary Cath still in place: No Assessment/Plan Chief Complaint/Hosp Course No complaints, pending insurance approval for home health antibiotics for 4 week more weeks. Assessment/Plan - Left foot abscess with possible osteomyelitis and left leg cellulitis, possibly due to postoperative infection after recent left foot hammertoe surgery. Dr. Mendel skinner is following in infection disease consultation. Wound cultures growing MRSA, continue vancomycin for [address] Mcdaniel is following in podiatry consultation. - Hypertension. Continue Coreg. - Coronary artery disease status post DIGITAL MARKETING STRATEGIST of left circumflex. Continue aspirin and Plavix. - Dyslipidemia. Continue Plavix. - Peripheral vascular disease. Dr. Red is following in vascular surgery consultation. - Tobacco dependence, cessation is advised, patient is continued on nicotine patch. Further recommendations based on clinical course. Plan of care discussed with Dr. Yadav. Problems: Exam/Review of Systems Vital Signs Vitals Vital Signs Date Time Temp Pulse Resp B/P Pulse Ox O2 Delivery O2 Flow Rate FiO2 03/13/17 07:51 98.3 72 18 149/85 99 Intake and Output 03/12/17 03/12/17 03/13/17 15:00 23:00 07:00 Intake Total 250 ml 1510 ml 500 ml Balance 250 ml 1510 ml 500 ml Exam Constitutional: alert, oriented Neck: supple Respiratory: normal air movement Cardiovascular: nl pulses Gastrointestinal: non-tender, soft Extremities: other (Left foot swelling and erythema, improved) Right upper extremity PICC line Results Result Diagram: 03/13/17 0413 03/13/17 0540 Results 24 hrs Laboratory Tests Test 03/13/17 04:13 03/13/17 05:40 White Blood Count 11.7 H Red Blood Count 4.56 L Hemoglobin 13.8 L Hematocrit 40.8 L Mean Corpuscular Volume 89.5 Mean Corpuscular Hemoglobin 30.3 Mean Corpuscular Hemoglobin Concent 33.8 Red Cell Distribution Width 13.2 Platelet Count 333 # Mean Platelet Volume 11.2 H Neutrophils % 69.2 Lymphocytes % 16.7 Monocytes % 8.6 Eosinophils % 3.0 Basophils % 0.5 Nucleated Red Blood Cells % 0.0 Neutrophils # 8.1 H Lymphocytes # 1.9 Monocytes # 1.0 H Eosinophils # 0.4 Basophils # 0.1 Nucleated Red Blood Cells # 0.0 Sodium Level 137 Potassium Level 4.4 Chloride Level 103 Carbon Dioxide Level 26 Anion Gap 12 Blood Urea Nitrogen 24 H Creatinine 0.96 Glucose Level 89 Calcium Level 9.8 Medications Medications Current Medications Aspirin (Halfprin) 81 mg DAILY PO Last administered on 03/13/17 09:17; Admin Dose 81 MG; Start 03/03/17 at 09:00 Carisoprodol (Soma) 350 mg Q8 PRN PO MUSCLE SPASMS; Start 03/02/17 at 18:00 Carvedilol (Coreg) 25 mg BID PO Last administered on 03/13/17 09:17; Admin Dose 25 MG; Start 03/02/17 at 21:00 Clopidogrel Bisulfate (plaVIX) 75 mg DAILY PO Last administered on 03/13/17 09 :16; Admin Dose 75 MG; Start 03/03/17 at 09:00 Gabapentin (Neurontin) 300 mg TID PO Last administered on 03/13/17 12:35; Admin Dose 300 MG; Start 03/02/17 at 21:00 Acetaminophen/ Hydrocodone Bitart ([place] (10/325)) 1 tab Q4H PRN PO PAIN Last administered on 03/10/17 21:08; Admin Dose 1 TAB; Start 03/02/17 at 18:00 Ropinirole HCl (Requip) 0.5 mg HS PO Last administered on 03/12/17 21:27; Admin Dose 0.5 MG; Start 03/02/17 at 21:00 Atorvastatin Calcium (Lipitor) 20 mg HS PO Last administered on 03/12/17 21:27 ; Admin Dose 20 MG; Start 03/02/17 at 21:00 Enoxaparin Sodium (Lovenox) 40 mg DAILY SC Last administered on 03/13/17 09:45 ; Admin Dose 40 MG; Start 03/03/17 at 09:00 Hydromorphone HCl (Dilaudid) 1 mg Q4H PRN IV PAIN Last administered on 17:52; Admin Dose 1 MG; Start 03/02/17 at 18:00 Acetaminophen (Tylenol Tab) 650 mg Q4H PRN PO PAIN AND OR ELEVATED TEMP Last administered on 03/07/17 13:23; Admin Dose 650 MG; Start 03/02/17 at 18:00 Losartan Potassium (Cozaar) 50 mg DAILY PO Last administered on 03/13/17 09:17 ; Admin Dose 50 MG; Start 03/03/17 at 09:00 Hydrochlorothiazide (Hydrochlorothiazide) 12.5 mg DAILY PO Last administered on 03/13/17 09:17; Admin Dose 12.5 MG; Start 03/03/17 at 09:00 Pantoprazole (Protonix Tab) 40 mg DAILY@06 PO Last administered on 03/13/17 06 :06; Admin Dose 40 MG; Start 03/03/17 at 06:00 Al Hydrox/Mg Hydrox/Simethicone (Mag-Al Plus) 30 ml Q4H PRN PO HEART BURN; Start 03/02/17 at 22:00 Nicotine (Nicoderm 21 Mg/ 24hr) 1 patch DAILY@21 TRANSDERM Last administered on 03/12/17 21:27; Admin Dose 1 PATCH; Start 03/05/17 at 21:00 Lorazepam 1 mg 1 mg Q4H PRN PO ANXIETY; Start 03/06/17 at 16:30 Vancomycin HCl/ Sodium Chloride (Vancocin/NS) 250 ml @ 83.333 mls/ hr Q12H IVPB Last administered on 03/13/17 15:52; Admin Dose 83.333 MLS/HR; Start at 16:00 TARIQ HI Mar 13, 2017 18:23
[2017-03-13 20:38] VITALS: BP 148/81; RESP 18
[2017-03-13] MEDS: ATORVASTATIN 20 MG TAB PO SCH (21:28)
[2017-03-13] MEDS: ROPINIROLE 0.25 MG TAB PO SCH (21:28)
[2017-03-13] MEDS: NICOTINE (21 MG/24 HR) PATCH TRANSDERM SCH (21:28)
[2017-03-14] MEDS: VANCOMYCIN 1.5 GM in SOD CHLORIDE 0.9% 250 ML IVPB SCH ×2 (04:03→16:38)
[2017-03-14] MEDS: PANTOPRAZOLE (EC) 40 MG TAB PO SCH (05:08)
[2017-03-14 06:03] LABS: ADD SCAN DIFF NO
[2017-03-14 06:22] LABS: BASOPHIL # 0.1 10^3/ul (0.0-0.1); BASOPHILS % 0.7 % (0.0-2.0); EOSINOPHILS # 0.4 10^3/ul (0.0-0.5); EOSINOPHILS % 3.1 % (0.0-7.0); HEMATOCRIT 41.3 % (42.0-52.0); HEMOGLOBIN 13.7 g/dl (14.0-18.0); LYMPHOCYTES # 2.6 10^3/ul (0.8-2.9); LYMPHOCYTES % 22.4 % (15.0-51.0); MEAN CORPUSCULAR HEMOGLOBIN 29.5 pg (29.0-33.0); MEAN CORPUSCULAR HGB CONC 33.2 g/dl (32.0-37.0); MEAN CORPUSCULAR VOLUME 88.8 fl (82.0-101.0); MEAN PLATELET VOLUME 10.3 fl (7.4-10.4); MONOCYTE # 1.1 10^3/ul (0.3-0.9); MONOCYTES % 9.8 % (0.0-11.0); NEUTROPHIL # 7.2 10^3/ul (1.6-7.5); NEUTROPHILS % 61.8 % (39.0-77.0); PLATELET COUNT 245 10^3/UL (140-415); RED BLOOD COUNT 4.65 10^6/ul (4.70-6.10); WHITE BLOOD COUNT 11.6 10^3/ul (4.8-10.8)
[2017-03-14 06:38] LABS: CREATININE 0.97 mg/dl (0.61-1.24)
[2017-03-14 08:05] VITALS: BP 127/68; RESP 20
[2017-03-14] MEDS: CLOPIDOGREL 75 MG TAB PO SCH (09:01)
[2017-03-14] MEDS: HYDROCHLOROTHIAZIDE 12.5 MG CAP PO SCH (09:02)
[2017-03-14] MEDS: GABAPENTIN 300 MG CAP PO SCH ×3 (09:02→20:35)
[2017-03-14] MEDS: ASPIRIN (EC) 81 MG TAB PO SCH (09:02)
[2017-03-14] MEDS: LOSARTAN 50 MG TAB PO SCH (09:03)
[2017-03-14] MEDS: ENOXAPARIN 40 MG/0.4 ML SYG SC SCH (09:22)
--- NOTE | 2017-03-14 12:20 | CONS ---
Date/Time of Note Date/Time of Note DATE: 03/14/17 TIME: 12:17 Assessment/Plan Assessment/Plan Chief Complaint/Hosp Course - skin and soft tissue infection with MRSA, possible erosion and OM of the tuft and undersurface of L 2nd distal phalanx (X Ray finding), probably involving the fixation pin as pus was expressed at its insertion site. s/p removal of the pin. ESR=20 - s/p L hammartoe repair on 01/29/2017 - s/p R hammartoe repair in 2016 - h/o skin and soft tissue infection of RLE - CAD s/p PCI - PVD - active smoker - moderate drinker - obesity - BMI 32.5 recommendations: - continue IV vancomycin (03/02/2017-), will need 4 (03/30/2017) - 6 (04/13/2017) weeks total. Pt wants to shorten the course of treatment. Pt feels that IV antibiotic infusion via PICC limits his life significantly in particular his job. He understand that shortening a course of his IV antibiotic leads to incomplete treatment and may cause recurrent infection in the future. He says that he has been fine with 9 fingers (he lost his R 4th finger due to an accident) and feels that he will be fine if the same infection recurs and ends up getting L 2nd toe amputated. I recommended that he discuss his response to treatment and his opinion at his follow up appointments, and his treatment plan beyond two weeks. Pt agreed. - please order weekly CBC and BMP while Pt's on IV antibiotic for review by the ordering physician - outpatient ID f/u in 1 week management d/w Pt Problems: Consultation Date/Type/Reason Admit Date/Time Mar 02, 2017 at 12:28 Initial Consult Date 03/03/17 Type of Consultation: Infectious Disease Referring Provider: ANGÉLICA HUSTON MD 24 HR Interval Summary Constitutional: no complaints Detailed Summary Eyes: no complaints ENT: no complaints Respiratory: no complaints Cardiovascular: no complaints Gastrointestinal: no complaints Genitourinary: no complaints Musculoskeletal: bone/joint pain (rarely happens upon weight bearing) Skin: skin lesions (wound of L 2nd toe has closed) Exam/Review of Systems Vital Signs Vitals Vital Signs Date Time Temp Pulse Resp B/P Pulse Ox O2 Delivery O2 Flow Rate FiO2 03/14/17 08:05 98.0 72 20 127/68 96 Intake and Output 03/13/17 03/13/17 03/14/17 15:00 23:00 07:00 Intake Total 250 ml 1790 ml 420 ml Balance 250 ml 1790 ml 420 ml Exam Constitutional: alert, oriented, well developed Psych: nl mood/affect, no complaints Head: atraumatic, normocephalic Eyes: nl conjunctiva, nl lids ENMT: nl external ears & nose, nl nasal mucosa & septum Musculoskeletal: swelling (L foot, mild) Extremities: No edema 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, nl mental status, other (intact sensation of feet and toes) Skin: rash or lesions (wound of L 2nd toe is closed with scabs) Results Result Diagram: 03/14/17 0510 03/14/17 0510 Results 24 hrs Laboratory Tests Test 03/14/17 05:10 White Blood Count 11.6 H Red Blood Count 4.65 L Hemoglobin 13.7 L Hematocrit 41.3 L Mean Corpuscular Volume 88.8 Mean Corpuscular Hemoglobin 29.5 Mean Corpuscular Hemoglobin Concent 33.2 Red Cell Distribution Width 13.0 Platelet Count 245 # Mean Platelet Volume 10.3 Neutrophils % 61.8 Lymphocytes % 22.4 Monocytes % 9.8 Eosinophils % 3.1 Basophils % 0.7 Nucleated Red Blood Cells % 0.0 Neutrophils # 7.2 Lymphocytes # 2.6 Monocytes # 1.1 H Eosinophils # 0.4 Basophils # 0.1 Nucleated Red Blood Cells # 0.0 Sodium Level 141 Potassium Level 4.0 Chloride Level 103 Carbon Dioxide Level 27 Anion Gap 15 Blood Urea Nitrogen 26 H Creatinine 0.97 Glucose Level 91 Calcium Level 10.0 Medications Medications Current Medications Aspirin (Halfprin) 81 mg DAILY PO Last administered on 03/14/17 09:02; Admin Dose 81 MG; Start 03/03/17 at 09:00 Carisoprodol (Soma) 350 mg Q8 PRN PO MUSCLE SPASMS; Start 03/02/17 at 18:00 Carvedilol (Coreg) 25 mg BID PO Last administered on 03/14/17 09:02; Admin Dose 25 MG; Start 03/02/17 at 21:00 Clopidogrel Bisulfate (plaVIX) 75 mg DAILY PO Last administered on 03/14/17 09 :01; Admin Dose 75 MG; Start 03/03/17 at 09:00 Gabapentin (Neurontin) 300 mg TID PO Last administered on 03/14/17 09:02; Admin Dose 300 MG; Start 03/02/17 at 21:00 Acetaminophen/ Hydrocodone Bitart ([place] (10/325)) 1 tab Q4H PRN PO PAIN Last administered on 03/10/17 21:08; Admin Dose 1 TAB; Start 03/02/17 at 18:00 Ropinirole HCl (Requip) 0.5 mg HS PO Last administered on 03/13/17 21:28; Admin Dose 0.5 MG; Start 03/02/17 at 21:00 Atorvastatin Calcium (Lipitor) 20 mg HS PO Last administered on 03/13/17 21:28 ; Admin Dose 20 MG; Start 03/02/17 at 21:00 Enoxaparin Sodium (Lovenox) 40 mg DAILY SC Last administered on 03/14/17 09:22 ; Admin Dose 40 MG; Start 03/03/17 at 09:00 Hydromorphone HCl (Dilaudid) 1 mg Q4H PRN IV PAIN Last administered on 17:52; Admin Dose 1 MG; Start 03/02/17 at 18:00 Acetaminophen (Tylenol Tab) 650 mg Q4H PRN PO PAIN AND OR ELEVATED TEMP Last administered on 03/07/17 13:23; Admin Dose 650 MG; Start 03/02/17 at 18:00 Losartan Potassium (Cozaar) 50 mg DAILY PO Last administered on 03/14/17 09:03 ; Admin Dose 50 MG; Start 03/03/17 at 09:00 Hydrochlorothiazide (Hydrochlorothiazide) 12.5 mg DAILY PO Last administered on 03/14/17 09:02; Admin Dose 12.5 MG; Start 03/03/17 at 09:00 Pantoprazole (Protonix Tab) 40 mg DAILY@06 PO Last administered on 03/14/17 05 :08; Admin Dose 40 MG; Start 03/03/17 at 06:00 Al Hydrox/Mg Hydrox/Simethicone (Mag-Al Plus) 30 ml Q4H PRN PO HEART BURN; Start 03/02/17 at 22:00 Nicotine (Nicoderm 21 Mg/ 24hr) 1 patch DAILY@21 TRANSDERM Last administered on 03/13/17 21:28; Admin Dose 1 PATCH; Start 03/05/17 at 21:00 Lorazepam 1 mg 1 mg Q4H PRN PO ANXIETY; Start 03/06/17 at 16:30 Vancomycin HCl/ Sodium Chloride (Vancocin/NS) 250 ml @ 83.333 mls/ hr Q12H IVPB Last administered on 03/14/17 04:03; Admin Dose 83.333 MLS/HR; Start at 16:00 Miscellaneous Information (*Rx Drug Level Order Reminder*) VANCOMYCIN TROUGH AT 0300 ONCE ONCE XX ; Start 03/15/17 at 03:00; Stop 03/15/17 at 03:01 HÉCTOR NO M.D. Mar 14, 2017 12:20
[2017-03-14 19:58] VITALS: BP 119/64; RESP 18
[2017-03-14] MEDS: ROPINIROLE 0.25 MG TAB PO SCH (20:34)
[2017-03-14] MEDS: ATORVASTATIN 20 MG TAB PO SCH (20:35)
[2017-03-14] MEDS: NICOTINE (21 MG/24 HR) PATCH TRANSDERM SCH (20:35)
[2017-03-15] MEDS: VANCOMYCIN 1.5 GM in SOD CHLORIDE 0.9% 250 ML IVPB SCH ×2 (05:01→16:59)
[2017-03-15] MEDS: PANTOPRAZOLE (EC) 40 MG TAB PO SCH (05:03)
[2017-03-15 07:42] VITALS: BP 107/52; RESP 18
[2017-03-15] MEDS: HYDROCHLOROTHIAZIDE 12.5 MG CAP PO SCH (09:00)
[2017-03-15] MEDS: LOSARTAN 50 MG TAB PO SCH (09:00)
[2017-03-15] MEDS: GABAPENTIN 300 MG CAP PO SCH ×3 (10:06→23:21)
[2017-03-15] MEDS: ASPIRIN (EC) 81 MG TAB PO SCH (10:06)
[2017-03-15] MEDS: CLOPIDOGREL 75 MG TAB PO SCH (10:06)
[2017-03-15] MEDS: ENOXAPARIN 40 MG/0.4 ML SYG SC SCH (10:12)
--- NOTE | 2017-03-15 14:29 | PN ---
Date/Time of Note Date/Time of Note DATE: 03/15/17 TIME: 14:25 Assessment/Plan VTE Prophylaxis VTE Prophylaxis Intervention: other Lines/Catheters IV [facility] Type (from [facility] P[facility] Line Urinary Cath still in place: No Assessment/Plan Assessment/Plan - Left foot abscess with possible osteomyelitis and left leg cellulitis, possibly due to postoperative infection after recent left foot hammertoe surgery. Dr. Mendel skinner is following in infection disease consultation. Wound cultures growing MRSA, continue vancomycin for [address] Mcdaniel is following in podiatry consultation. - Hypertension. Continue Coreg. 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 Continue aspirin and Plavix. - Dyslipidemia. Continue Plavix. - Peripheral vascular disease. Dr. Red is following in vascular surgery consultation. - Tobacco dependence, cessation is advised, patient is continued on nicotine patch. Further recommendations based on clinical course. Plan of care discussed with Dr. Yadav. Exam/Review of Systems Vital Signs Vitals Vital Signs Date Time Temp Pulse Resp B/P Pulse Ox O2 Delivery O2 Flow Rate FiO2 03/15/17 07:42 98.6 75 18 107/52 100 Intake and Output 03/14/17 03/14/17 03/15/17 15:00 23:00 07:00 Intake Total 250 ml 250 ml 220 ml Output Total 700 ml Balance 250 ml 250 ml -480 ml Exam Constitutional: alert Respiratory: clear to auscultation, normal air movement Cardiovascular: nl pulses, regular rate and rhythm Gastrointestinal: non-tender, soft Musculoskeletal: other Extremities: other Skin: other (Left foot abscess) Results Result Diagram: 03/14/17 0510 03/14/17 0510 Results 24 hrs Laboratory Tests Test 03/15/17 03:10 Vancomycin Level Trough 15.8 Medications Medications Current Medications Aspirin (Halfprin) 81 mg DAILY PO Last administered on 03/15/17 10:06; Admin Dose 81 MG; Start 03/03/17 at 09:00 Carisoprodol (Soma) 350 mg Q8 PRN PO MUSCLE SPASMS; Start 03/02/17 at 18:00 Carvedilol (Coreg) 25 mg BID PO Last administered on 03/14/17 20:35; Admin Dose 25 MG; Start 03/02/17 at 21:00 Clopidogrel Bisulfate (plaVIX) 75 mg DAILY PO Last administered on 03/15/17 10 :06; Admin Dose 75 MG; Start 03/03/17 at 09:00 Gabapentin (Neurontin) 300 mg TID PO Last administered on 03/15/17 13:37; Admin Dose 300 MG; Start 03/02/17 at 21:00 Acetaminophen/ Hydrocodone Bitart ([place] (10/325)) 1 tab Q4H PRN PO PAIN Last administered on 03/10/17 21:08; Admin Dose 1 TAB; Start 03/02/17 at 18:00 Ropinirole HCl (Requip) 0.5 mg HS PO Last administered on 03/14/17 20:34; Admin Dose 0.5 MG; Start 03/02/17 at 21:00 Atorvastatin Calcium (Lipitor) 20 mg HS PO Last administered on 03/14/17 20:35 ; Admin Dose 20 MG; Start 03/02/17 at 21:00 Enoxaparin Sodium (Lovenox) 40 mg DAILY SC Last administered on 03/15/17 10:12 ; Admin Dose 40 MG; Start 03/03/17 at 09:00 Hydromorphone HCl (Dilaudid) 1 mg Q4H PRN IV PAIN Last administered on 17:52; Admin Dose 1 MG; Start 03/02/17 at 18:00 Acetaminophen (Tylenol Tab) 650 mg Q4H PRN PO PAIN AND OR ELEVATED TEMP Last administered on 03/07/17 13:23; Admin Dose 650 MG; Start 03/02/17 at 18:00 Losartan Potassium (Cozaar) 50 mg DAILY PO Last administered on 03/14/17 09:03 ; Admin Dose 50 MG; Start 03/03/17 at 09:00 Hydrochlorothiazide (Hydrochlorothiazide) 12.5 mg DAILY PO Last administered on 03/14/17 09:02; Admin Dose 12.5 MG; Start 03/03/17 at 09:00 Pantoprazole (Protonix Tab) 40 mg DAILY@06 PO Last administered on 03/15/17 05 :03; Admin Dose 40 MG; Start 03/03/17 at 06:00 Al Hydrox/Mg Hydrox/Simethicone (Mag-Al Plus) 30 ml Q4H PRN PO HEART BURN; Start 03/02/17 at 22:00 Nicotine (Nicoderm 21 Mg/ 24hr) 1 patch DAILY@21 TRANSDERM Last administered on 03/14/17 20:35; Admin Dose 1 PATCH; Start 03/05/17 at 21:00 Lorazepam 1 mg 1 mg Q4H PRN PO ANXIETY; Start 03/06/17 at 16:30 Vancomycin HCl/ Sodium Chloride (Vancocin/NS) 250 ml @ 83.333 mls/ hr Q12H IVPB Last administered on 03/15/17 05:01; Admin Dose 83.333 MLS/HR; Start at 16:00 ROSELINE CAR Mar 15, 2017 14:29
--- NOTE | 2017-03-15 20:10 | CONS ---
Date/Time of Note Date/Time of Note DATE: 03/15/17 TIME: 20:08 Assessment/Plan Assessment/Plan Chief Complaint/Hosp Course - skin and soft tissue infection with MRSA, possible erosion and OM of the tuft and undersurface of L 2nd distal phalanx (X Ray finding), probably involving the fixation pin as pus was expressed at its insertion site. s/p removal of the pin. ESR=20 - s/p L hammartoe repair on 01/29/2017 - s/p R hammartoe repair in 2016 - h/o skin and soft tissue infection of RLE - CAD s/p PCI - PVD - active smoker - moderate drinker - obesity - BMI 32.5 recommendations: - continue IV vancomycin (03/02/2017-); I recommend 6 weeks (end date 04/13/2017) - please order weekly CBC and BMP while Pt's on IV antibiotic for review by the ordering physician - outpatient ID f/u in 1 week management d/w Pt and his Problems: Consultation Date/Type/Reason Admit Date/Time Mar 02, 2017 at 12:28 Initial Consult Date 03/03/17 Type of Consultation: Infectious Disease Referring Provider: ANGÉLICA HUSTON MD 24 HR Interval Summary Constitutional: no complaints Detailed Summary Eyes: no complaints ENT: no complaints Respiratory: no complaints Cardiovascular: no complaints Gastrointestinal: no complaints Genitourinary: no complaints Musculoskeletal: No bone/joint pain Skin: skin lesions (wound of 2nd L toe is closed) Exam/Review of Systems Vital Signs Vitals Vital Signs Date Time Temp Pulse Resp B/P Pulse Ox O2 Delivery O2 Flow Rate FiO2 03/15/17 07:42 98.6 75 18 107/52 100 Intake and Output 03/14/17 03/14/17 03/15/17 15:00 23:00 07:00 Intake Total 250 ml 250 ml 220 ml Output Total 700 ml Balance 250 ml 250 ml -480 ml Results Result Diagram: 03/14/17 0510 03/14/17 0510 Results 24 hrs Laboratory Tests Test 03/15/17 03:10 Vancomycin Level Trough 15.8 Medications Medications Current Medications Aspirin (Halfprin) 81 mg DAILY PO Last administered on 03/15/17t 10:06; Admin Dose 81 MG; Start 03/03/17 at 09:00 Carisoprodol (Soma) 350 mg Q8 PRN PO MUSCLE SPASMS; Start 03/02/17 at 18:00 Carvedilol (Coreg) 25 mg BID PO Last administered on 03/14/17 20:35; Admin Dose 25 MG; Start 03/02/17 at 21:00 Clopidogrel Bisulfate (plaVIX) 75 mg DAILY PO Last administered on 03/15/17 10 :06; Admin Dose 75 MG; Start 03/03/17 at 09:00 Gabapentin (Neurontin) 300 mg TID PO Last administered on 03/15/17 13:37; Admin Dose 300 MG; Start 03/02/17 at 21:00 Acetaminophen/ Hydrocodone Bitart ([place] ()) 1 tab Q4H PRN PO PAIN Last administered on 03/10/17 21:08; Admin Dose 1 TAB; Start 03/02/17 at 18:00 Ropinirole HCl (Requip) 0.5 mg HS PO Last administered on 03/14/17 20:34; Admin Dose 0.5 MG; Start 03/02/17 at 21:00 Atorvastatin Calcium (Lipitor) 20 mg HS PO Last administered on 03/14/17 20:35 ; Admin Dose 20 MG; Start 03/02/17 at 21:00 Enoxaparin Sodium (Lovenox) 40 mg DAILY SC Last administered on 03/15/17 10:12 ; Admin Dose 40 MG; Start 03/03/17 at 09:00 Hydromorphone HCl (Dilaudid) 1 mg Q4H PRN IV PAIN Last administered on 17:52; Admin Dose 1 MG; Start 03/02/17 at 18:00 Acetaminophen (Tylenol Tab) 650 mg Q4H PRN PO PAIN AND OR ELEVATED TEMP Last administered on 03/07/17 13:23; Admin Dose 650 MG; Start 03/02/17 at 18:00 Losartan Potassium (Cozaar) 50 mg DAILY PO Last administered on 03/14/17 09:03 ; Admin Dose 50 MG; Start 03/03/17 at 09:00 Hydrochlorothiazide (Hydrochlorothiazide) 12.5 mg DAILY PO Last administered on 03/14/17 09:02; Admin Dose 12.5 MG; Start 03/03/17 at 09:00 Pantoprazole (Protonix Tab) 40 mg DAILY@06 PO Last administered on 03/15/17 05 :03; Admin Dose 40 MG; Start 03/03/17 at 06:00 Al Hydrox/Mg Hydrox/Simethicone (Mag-Al Plus) 30 ml Q4H PRN PO HEART BURN; Start 03/02/17 at 22:00 Nicotine (Nicoderm 21 Mg/ 24hr) 1 patch DAILY@21 TRANSDERM Last administered on 03/14/17 20:35; Admin Dose 1 PATCH; Start 03/05/17 at 21:00 Lorazepam 1 mg 1 mg Q4H PRN PO ANXIETY; Start 03/06/17 at 16:30 Vancomycin HCl/ Sodium Chloride (Vancocin/NS) 250 ml @ 83.333 mls/ hr Q12H IVPB Last administered on 03/15/17 16:59; Admin Dose 83.333 MLS/HR; Start at 16:00 HÉCTOR NO M.D. Mar 15, 2017 20:10
--- NOTE | 2017-03-15 20:30 | CONS ---
Date/Time of Note Date/Time of Note DATE: 03/15/17 TIME: 20:24 Assessment/Plan Assessment/Plan Chief Complaint/Hosp Course - skin and soft tissue infection with MRSA, possible erosion and OM of the tuft and undersurface of L 2nd distal phalanx (X Ray finding), probably involving the fixation pin as pus was expressed at its insertion site. s/p removal of the pin. ESR=20 - s/p L hammartoe repair on 01/29/2017 - s/p R hammartoe repair in 2016 - h/o skin and soft tissue infection of RLE - CAD s/p PCI - PVD - active smoker - moderate drinker - obesity - BMI 32.5 REVISED recommendations: - will order MRI of L foot to evaluate the bone/musculature - continue IV vancomycin (03/02/2017-); I recommend 6 weeks (end date 04/13/2017) - please order weekly CBC and BMP while Pt's on IV antibiotic for review by the ordering physician management d/w Pt and his , AFTAB jimenez, RN the total time I took to care for this Pt today was from 1930 to 2014 Problems: Consultation Date/Type/Reason Admit Date/Time Mar 02, 2017 at 12:28 Initial Consult Date 03/03/17 Type of Consultation: Infectious Disease Referring Provider: ANGÉLICA HUSTON MD Exam/Review of Systems Vital Signs Vitals Vital Signs Date Time Temp Pulse Resp B/P Pulse Ox O2 Delivery O2 Flow Rate FiO2 03/15/17 07:42 98.6 75 18 107/52 100 Intake and Output 03/14/17 03/14/17 03/15/17 14:59 22:59 06:59 Intake Total 250 ml 250 ml 220 ml Output Total 700 ml Balance 250 ml 250 ml -480 ml Results Result Diagram: 03/14/17 0510 03/14/17 0510 Results 24 hrs Laboratory Tests Test 03/15/17 03:10 Vancomycin Level Trough 15.8 Medications Medications Current Medications Aspirin (Halfprin) 81 mg DAILY PO Last administered on 03/15/17t 10:06; Admin Dose 81 MG; Start 03/03/17 at 09:00 Carisoprodol (Soma) 350 mg Q8 PRN PO MUSCLE SPASMS; Start 03/02/17 at 18:00 Carvedilol (Coreg) 25 mg BID PO Last administered on 03/14/17 20:35; Admin Dose 25 MG; Start 03/02/17 at 21:00 Clopidogrel Bisulfate (plaVIX) 75 mg DAILY PO Last administered on 03/15/17 10 :06; Admin Dose 75 MG; Start 03/03/17 at 09:00 Gabapentin (Neurontin) 300 mg TID PO Last administered on 03/15/17 13:37; Admin Dose 300 MG; Start 03/02/17 at 21:00 Acetaminophen/ Hydrocodone Bitart ([place] (10/325)) 1 tab Q4H PRN PO PAIN Last administered on 03/10/17 21:08; Admin Dose 1 TAB; Start 03/02/17 at 18:00 Ropinirole HCl (Requip) 0.5 mg HS PO Last administered on 03/14/17 20:34; Admin Dose 0.5 MG; Start 03/02/17 at 21:00 Atorvastatin Calcium (Lipitor) 20 mg HS PO Last administered on 03/14/17 20:35 ; Admin Dose 20 MG; Start 03/02/17 at 21:00 Enoxaparin Sodium (Lovenox) 40 mg DAILY SC Last administered on 03/15/17 10:12 ; Admin Dose 40 MG; Start 03/03/17 at 09:00 Hydromorphone HCl (Dilaudid) 1 mg Q4H PRN IV PAIN Last administered on 17:52; Admin Dose 1 MG; Start 03/02/17 at 18:00 Acetaminophen (Tylenol Tab) 650 mg Q4H PRN PO PAIN AND OR ELEVATED TEMP Last administered on 03/07/17 13:23; Admin Dose 650 MG; Start 03/02/17 at 18:00 Losartan Potassium (Cozaar) 50 mg DAILY PO Last administered on 03/14/17 09:03 ; Admin Dose 50 MG; Start 03/03/17 at 09:00 Hydrochlorothiazide (Hydrochlorothiazide) 12.5 mg DAILY PO Last administered on 03/14/17 09:02; Admin Dose 12.5 MG; Start 03/03/17 at 09:00 Pantoprazole (Protonix Tab) 40 mg DAILY@06 PO Last administered on 03/15/17 05 :03; Admin Dose 40 MG; Start 6/10/17 at 06:00 Al Hydrox/Mg Hydrox/Simethicone (Mag-Al Plus) 30 ml Q4H PRN PO HEART BURN; Start 03/02/17 at 22:00 Nicotine (Nicoderm 21 Mg/ 24hr) 1 patch DAILY@21 TRANSDERM Last administered on 03/14/17t 20:35; Admin Dose 1 PATCH; Start 03/05/17 at 21:00 Lorazepam 1 mg 1 mg Q4H PRN PO ANXIETY; Start 03/06/17 at 16:30 Vancomycin HCl/ Sodium Chloride (Vancocin/NS) 250 ml @ 83.333 mls/ hr Q12H IVPB Last administered on 03/15/17 16:59; Admin Dose 83.333 MLS/HR; Start at 16:00 HÉCTOR NO M.D. Mar 15, 2017 20:30
[2017-03-15 20:32] VITALS: BP 134/66; RESP 18
[2017-03-15] MEDS: ATORVASTATIN 20 MG TAB PO SCH (23:21)
[2017-03-15] MEDS: ROPINIROLE 0.25 MG TAB PO SCH (23:22)
[2017-03-15] MEDS: NICOTINE (21 MG/24 HR) PATCH TRANSDERM SCH (23:23)
--- NOTE | 2017-03-16 00:03 | RADRPT ---
PROCEDURE: MR left foot. CLINICAL INDICATION: Cellulitis. Diabetic infection of second toe. Clinical concern for osteomye litis TECHNIQUE: Signa 3 Fatou scanner: The left forefoot is evaluated with Sagittal T1/inversion recove ry, coronal T1/proton-density fat saturation, axial T1/proton-density fat saturation. Following the intravenous administration of 10 cc Magnevist, postcontrast coronal and sagittal T1 fat suppressed i mages are obtained COMPARISON: X-ray 03/05/2017. FINDINGS: Osseous structures: Abnormal hypointense of T1 and hyperintense STIR signal with homogeneous enhance ment is present in the proximal, middle and distal phalanges of the second toe with some sparing of the proximal phalangeal base, findings confirming the clinical suspicion of osteomyelitis. In additi on, there is periosteal thickening predominately about the middle phalanx consistent with associated periostitis, tiny subperiosteal abscess seizure difficult to exclude The remaining osseous structu res of the forefoot maintain normal signal intensity and show no pathologic enhancement. There is m ild degenerative narrowing of the metatarsal phalangeal joint of the great toe. The metatarsals and visualized cuboid as well as cuneiforms maintain normal signal intensity Tendons, musculature, ligaments and subcutaneous tissues: Stranding of the subcutaneous fat adjacent to the second toe is consistent with cellulitis, some nonspecific stranding with hyperintense STIR signal in the fat of the dorsum of the foot is also present unable to exclude additional areas of ce llulitis. The intrinsic muscles of the foot maintain normal signal intensity on all sequences witho ut myositis. No tendinous abnormalities are seen There is no evidence of an abscess. The ligamentou s structures are preserved without tear or pathologic enhancement RPTAT:HJJR IMPRESSION: 1. Osteomyelitis and periostitis involving the phalanges of the left second toe with minimal sparin g of the proximal phalangeal base and no involvement of the second metatarsal. 2. Cellulitis about the second toe and dorsum of the forefoot without evidence of subcutaneous absc ess or myositis. Physician Migel Date Time Electronically viewed and signed by Watson Tavarez Physician on 03/16/2017 00:03 STACEY
[2017-03-16] MEDS: VANCOMYCIN 1.5 GM in SOD CHLORIDE 0.9% 250 ML IVPB SCH ×2 (05:04→16:46)
[2017-03-16 05:50] LABS: ADD SCAN DIFF NO
[2017-03-16 06:13] LABS: BASOPHIL # 0.1 10^3/ul (0.0-0.1); BASOPHILS % 0.7 % (0.0-2.0); EOSINOPHILS # 0.3 10^3/ul (0.0-0.5); EOSINOPHILS % 2.7 % (0.0-7.0); HEMATOCRIT 40.6 % (42.0-52.0); HEMOGLOBIN 13.3 g/dl (14.0-18.0); LYMPHOCYTES % 17.4 % (15.0-51.0); MEAN CORPUSCULAR HEMOGLOBIN 29.6 pg (29.0-33.0); MEAN CORPUSCULAR HGB CONC 32.8 g/dl (32.0-37.0); MEAN CORPUSCULAR VOLUME 90.4 fl (82.0-101.0); MEAN PLATELET VOLUME 10.6 fl (7.4-10.4); MONOCYTE # 1.1 10^3/ul (0.3-0.9); MONOCYTES % 9.2 % (0.0-11.0); NEUTROPHILS % 67.9 % (39.0-77.0); PLATELET COUNT 239 10^3/UL (140-415); RED BLOOD COUNT 4.49 10^6/ul (4.70-6.10); WHITE BLOOD COUNT 11.7 10^3/ul (4.8-10.8)
[2017-03-16] MEDS: PANTOPRAZOLE (EC) 40 MG TAB PO SCH (06:29)
[2017-03-16 06:55] LABS: CALCIUM 9.6 mg/dl (8.4-10.2); CREATININE 0.99 mg/dl (0.61-1.24); POTASSIUM 4.2 mmol/L (3.5-5.1)
[2017-03-16 08:00] VITALS: BP 134/70; RESP 20
[2017-03-16] MEDS: GABAPENTIN 300 MG CAP PO SCH ×3 (09:40→20:10)
[2017-03-16] MEDS: CLOPIDOGREL 75 MG TAB PO SCH (09:40)
[2017-03-16] MEDS: HYDROCHLOROTHIAZIDE 12.5 MG CAP PO SCH (09:41)
[2017-03-16] MEDS: LOSARTAN 50 MG TAB PO SCH (09:42)
[2017-03-16] MEDS: ASPIRIN (EC) 81 MG TAB PO SCH (09:42)
[2017-03-16] MEDS: ENOXAPARIN 40 MG/0.4 ML SYG SC SCH (10:06)
--- NOTE | 2017-03-16 14:29 | CONS ---
Date/Time of Note Date/Time of Note DATE: 03/16/17 TIME: 14:26 Assessment/Plan Assessment/Plan Chief Complaint/Hosp Course - skin and soft tissue infection with MRSA, possible erosion and OM of the tuft and undersurface of L 2nd distal phalanx (X Ray finding), OM and periostitis involving the phalanges of L 2nd toe, minimal sparing of the proximal phalangeal base and no involvement of L 2nd metatarsal, cellulitis about L 2nd toe and dorsum of the forefoot without evidence of subcutaneous abscess or myositis (MRI finding). s/p removal of the pin. ESR=20 - s/p L hammartoe repair on 01/29/2017 - s/p R hammartoe repair in 2016 - h/o skin and soft tissue infection of RLE - CAD s/p PCI - PVD - active smoker - moderate drinker - obesity - BMI 32.5 recommendations: - continue IV vancomycin (03/02/2017-); I recommend 6 weeks (end date 04/13/2017) - please order weekly CBC and BMP while Pt's on IV antibiotic for review by the ordering physician management d/w Pt Problems: Consultation Date/Type/Reason Admit Date/Time Mar 02, 2017 at 12:28 Initial Consult Date 03/03/17 Type of Consultation: Infectious Disease Referring Provider: ANGÉLICA HUSTON MD 24 HR Interval Summary Constitutional: no complaints Detailed Summary Eyes: no complaints ENT: no complaints Respiratory: no complaints Cardiovascular: no complaints Gastrointestinal: no complaints Genitourinary: no complaints Musculoskeletal: swelling (b/l 2nd toe) Skin: skin lesions (wound of L 2nd toe is closed) Neurologic: no complaints Exam/Review of Systems Vital Signs Vitals Vital Signs Date Time Temp Pulse Resp B/P Pulse Ox O2 Delivery O2 Flow Rate FiO2 03/15/17 20:32 98.0 18 134/66 96 03/15/17 07:42 75 Intake and Output 03/15/17 03/15/17 03/16/17 15:00 23:00 07:00 Intake Total 250 ml 1120 ml 500 ml Balance 250 ml 1120 ml 500 ml Exam Constitutional: alert, oriented, well developed Psych: nl mood/affect, no complaints Head: normocephalic Eyes: nl conjunctiva, nl lids ENMT: nl external ears & nose, nl nasal mucosa & septum Neck: supple Musculoskeletal: swelling (b/l L 2nd toe) Extremities: edema (L foot) Neurological: FILENET ARCHITECT II-XII intact, nl mental status, nl speech Skin: rash or lesions (wound of L 2nd toe closed, non-purulent) Results Result Diagram: 03/16/17 0504 03/16/17 0504 Results 24 hrs Laboratory Tests Test 03/16/17 05:04 White Blood Count 11.7 H Red Blood Count 4.49 L Hemoglobin 13.3 L Hematocrit 40.6 L Mean Corpuscular Volume 90.4 Mean Corpuscular Hemoglobin 29.6 Mean Corpuscular Hemoglobin Concent 32.8 Red Cell Distribution Width 13.0 Platelet Count 239 Mean Platelet Volume 10.6 H Neutrophils % 67.9 Lymphocytes % 17.4 Monocytes % 9.2 Eosinophils % 2.7 Basophils % 0.7 Nucleated Red Blood Cells % 0.0 Neutrophils # 8.0 H Lymphocytes # 2.0 Monocytes # 1.1 H Eosinophils # 0.3 Basophils # 0.1 Nucleated Red Blood Cells # 0.0 Sodium Level 139 Potassium Level 4.2 Chloride Level 104 Carbon Dioxide Level 29 Anion Gap 10 # Blood Urea Nitrogen 26 H Creatinine 0.99 Glucose Level 95 Calcium Level 9.6 Medications Medications Current Medications Aspirin (Halfprin) 81 mg DAILY PO Last administered on 03/16/17 09:42; Admin Dose 81 MG; Start 03/03/17 at 09:00 Carisoprodol (Soma) 350 mg Q8 PRN PO MUSCLE SPASMS; Start 03/02/17 at 18:00 Carvedilol (Coreg) 25 mg BID PO Last administered on 03/16/17 09:42; Admin Dose 25 MG; Start 03/02/17 at 21:00 Clopidogrel Bisulfate (plaVIX) 75 mg DAILY PO Last administered on 03/16/17 09 :40; Admin Dose 75 MG; Start 03/03/17 at 09:00 Gabapentin (Neurontin) 300 mg TID PO Last administered on 03/16/17 13:39; Admin Dose 300 MG; Start 03/02/17 at 21:00 Acetaminophen/ Hydrocodone Bitart ([place] (10/325)) 1 tab Q4H PRN PO PAIN Last administered on 03/10/17 21:08; Admin Dose 1 TAB; Start 03/02/17 at 18:00 Ropinirole HCl (Requip) 0.5 mg HS PO Last administered on 03/15/17 23:22; Admin Dose 0.5 MG; Start 03/02/17 at 21:00 Atorvastatin Calcium (Lipitor) 20 mg HS PO Last administered on 03/15/17 23:21 ; Admin Dose 20 MG; Start 03/02/17 at 21:00 Enoxaparin Sodium (Lovenox) 40 mg DAILY SC Last administered on 03/16/17 10:06 ; Admin Dose 40 MG; Start 03/03/17 at 09:00 Hydromorphone HCl (Dilaudid) 1 mg Q4H PRN IV PAIN Last administered on 17:52; Admin Dose 1 MG; Start 03/02/17 at 18:00 Acetaminophen (Tylenol Tab) 650 mg Q4H PRN PO PAIN AND OR ELEVATED TEMP Last administered on 03/07/17 13:23; Admin Dose 650 MG; Start 03/02/17 at 18:00 Losartan Potassium (Cozaar) 50 mg DAILY PO Last administered on 03/16/17 09:42 ; Admin Dose 50 MG; Start 03/03/17 at 09:00 Hydrochlorothiazide (Hydrochlorothiazide) 12.5 mg DAILY PO Last administered on 03/16/17 09:41; Admin Dose 12.5 MG; Start 03/03/17 at 09:00 Pantoprazole (Protonix Tab) 40 mg DAILY@06 PO Last administered on 03/16/17 06 :29; Admin Dose 40 MG; Start 03/03/17 at 06:00 Al Hydrox/Mg Hydrox/Simethicone (Mag-Al Plus) 30 ml Q4H PRN PO HEART BURN; Start 03/02/17 at 22:00 Nicotine (Nicoderm 21 Mg/ 24hr) 1 patch DAILY@21 TRANSDERM Last administered on 03/15/17 23:23; Admin Dose 1 PATCH; Start 03/05/17 at 21:00 Lorazepam 1 mg 1 mg Q4H PRN PO ANXIETY; Start 03/06/17 at 16:30 Vancomycin HCl/ Sodium Chloride (Vancocin/NS) 250 ml @ 83.333 mls/ hr Q12H IVPB Last administered on 03/16/17 05:04; Admin Dose 83.333 MLS/HR; Start at 16:00 HÉCTOR NO M.D. Mar 16, 2017 14:29
[2017-03-16] MEDS ORDERED: NICO1PAT6 TRANSDERM (17:52)
[2017-03-16] MEDS ORDERED: HYDR-906 PO (17:52)
[2017-03-16 19:28] VITALS: BP 145/73; RESP 18
[2017-03-16] MEDS: ATORVASTATIN 20 MG TAB PO SCH (20:10)
[2017-03-16] MEDS: ROPINIROLE 0.25 MG TAB PO SCH (20:10)
[2017-03-16] MEDS: NICOTINE (21 MG/24 HR) PATCH TRANSDERM SCH (20:11)
== END 2017-03-16 20:40 | disposition home health service (06) | DRG 560 ==
LOC: E/R 11:04 → MS2 12:28
PROVIDERS: ADMIT Internal Medicine; ATTEND Internal Medicine
DX: T84.69XA Infection and inflammatory reaction due to internal fixation device of other site, initial encounter (principal); L03.116 Cellulitis of left lower limb; E11.42 Type 2 diabetes mellitus with diabetic polyneuropathy; E11.51 Type 2 diabetes mellitus with diabetic peripheral angiopathy without gangrene; L02.612 Cutaneous abscess of left foot; M86.8X7 Other osteomyelitis, ankle and foot; I10 Essential (primary) hypertension; I25.10 Atherosclerotic heart disease of native coronary artery without angina pectoris; F17.210 Nicotine dependence, cigarettes, uncomplicated; E78.5 Hyperlipidemia, unspecified; I70.213 Atherosclerosis of native arteries of extremities with intermittent claudication, bilateral legs; I87.2 Venous insufficiency (chronic) (peripheral); E66.9 Obesity, unspecified; Z68.32 Body mass index [BMI] 32.0-32.9, adult; E11.69 Type 2 diabetes mellitus with other specified complication; B95.62 Methicillin resistant Staphylococcus aureus infection as the cause of diseases classified elsewhere; Z79.82 Long term (current) use of aspirin; Z89.021 Acquired absence of right finger(s); Z95.5 Presence of coronary angioplasty implant and graft; Y83.8 Other surgical procedures as the cause of abnormal reaction of the patient, or of later complication, without mention of misadventure at the time of the procedure
CPT/HCPCS: 36415; 36569; 71010; 73722; 76937; 80048; 80053; 80202; 81003; 82565; 83605; 84484; 84520; 85025; 85610; 85651; 85730; 87040; 87070; 87086; 93005; 93922; 96365; 96375; 96376; J1170; J1650; J2060; J2405; J2543; J3370; J7030; J7050

== ENCOUNTER 2017-03-20 08:14 | Emergency (ER) | payer MEDICARE, MEDICAID ==
[~2017-03-20] VITALS: Wt 91.5 kg
[~2017-03-20 08:14] MED LIST changes: -CARI350T PO; +CARI350T29 PO; -HYDR-762 PO; +HYDR-906 PO; +NICO1PAT6 TRANSDERM
[2017-03-20] MEDS ORDERED: LIDOCAINE 1% (MPF) 5 ML VIAL SC ONE (09:00)
--- NOTE | 2017-03-20 09:06 | ERD ---
ER Documentation Chief Complaint Date/Time DATE: 03/20/17 TIME: 09:04 Chief Complaint PICC LINE PROBLEM, NO BLEEDING, ABLE TO USE FOR ABX TREATMENT LAST NIGHT HPI Patient is a 56-year-old male with osteomyelitis who presents for a PICC line complication. The patient was discharged on Sunday and is currently being treated with vancomycin for osteomyelitis. He needs antibiotics for another 5 weeks. The patient said that his antibiotics did not go in well last night and that he noticed a kink in the line and that his PICC line had pulled out 1-2 inches. The patient has no fevers or redness around the line. He has no other complaints. He just wants his PICC line to be evaluated. ROS All systems reviewed and are negative except as per history of present illness. Medications Home Meds Active Scripts Hydrocodone/Acetaminophen ([place] 5-325 Tablet) 1 Each Tablet, 1 EACH PO Q4 for PAIN, #30 TAB Prov:TARIQ HI 03/16/17 Nicotine* (Nicotine* Patch) 21 mg/day Patch, 1 PATCH TRANSDERM DAILY@21 for 30 Days Prov:TARIQ HI 03/16/17 Clopidogrel Bisulfate (Clopidogrel) 75 Mg Tab, 75 MG PO DAILY for 30 Days Prov:LEXA HALL NP 10/14/14 Reported Medications Carisoprodol* (Carisoprodol*) 350 Mg Tablet, 350 MG PO Q8 Y for MUSCLE SPASMS, TAB 03/02/17 Gabapentin* (Gabapentin*) 300 Mg Capsule, 300 MG PO TID, #90 CAP 01/29/17 Ropinirole Hcl* (Ropinirole Hcl*) 0.5 Mg Tablet, 0.5 MG PO HS, TAB 01/29/17 Carvedilol* (Carvedilol*) 25 Mg Tablet, 25 MG PO BID, #60 TAB 01/29/17 Aspirin* (Aspirin* EC) 81 Mg Tablet.dr, 81 MG PO DAILY, TAB 10/13/14 Losartan-Hydrochlorothiazide (Hyzaar) 50-12.5 Mg Tab, 1 TAB PO DAILY, TAB 10/13/14 Discontinued Reported Medications Hydrocodone Bit-Acetaminophen* ([place]*) 10-325 Mg Tablet, 1 TAB PO Q4H Y for PAIN, TAB 10/13/14 Allergies Allergies: Coded Allergies: morphine (Verified Allergy, Unknown, ITCHING, 03/02/17) PMhx/Soc History of Surgery: Yes (STENT PLACEMENT,FOOT TOE SX,RING FINGER SX.) Anesthesia Reaction: Yes (ONCE,HARD TO WAKE UP.) Hx Neurological Disorder: Yes (NEUROPATHY) Hx Respiratory Disorders: Yes (HX ASTHMA) Hx Cardiac Disorders: Yes (HTN,HYPERLIPIDEMIA) Hx Psychiatric Problems: Yes (DEPRESSION) Hx Alcohol Use: Yes (NOT VERY OFTEN.) Hx Substance Use: No Hx Tobacco Use: Yes Smoking Status: Current every day smoker FmHx Family History: No diabetes Physical Exam Vitals Vital Signs Date Time Temp Pulse Resp B/P Pulse Ox O2 Delivery O2 Flow Rate FiO2 03/20/17 08:17 98.4 96 17 131/72 97 Physical Exam Const: No acute distress Head: Atraumatic Eyes: Normal Conjunctiva ENT: Normal External Ears, Nose and Mouth. Neck: Full range of motion..~ No meningismus. Resp: Clear to auscultation bilaterally Cardio: Regular rate and rhythm, no murmurs Abd: Soft, non tender, non distended. Normal bowel sounds Skin: No infection of the PICC line to the right upper extremity. The PICC line has been pulled out approximately 3-4 cm, there is a kink in the line which is likely the reason he is having trouble with the antibiotics Back: No midline or flank tenderness Ext: No cyanosis, or edema Neur: Awake and alert Psych: Normal Mood and Affect Results 24 hrs Current Medications Medications (Trade) Dose Ordered Sig/Reed Route PRN Reason Start Time Stop Time Status Last Admin Dose Admin Lidocaine (Xylocaine 1% (Mpf)) 5 ml ONCE ONCE SC 03/20/17 09:00 03/20/17 09:01 DC Procedures/MDM Patient is a 56-year-old male presents with a occluded PICC line. There is a kink in the line and the line is pulled out a few centimeters. The patient will go to the PICC suite and will have his line readjusted or replaced. The patient will be discharged home so that he can get his vancomycin as an outpatient. Departure Diagnosis: Primary Impression: Occluded PICC line Encounter type: initial encounter Qualified Code: T82.898A - Occluded PICC line, initial encounter Condition: Fair Patient Instructions: Picc Line Care Additional Instructions: Call your primary care doctor TOMORROW for an appointment during the next 1 WEEK.Tell the assistant secretary that you were referred from this facility.See the doctor sooner or return here if your condition worsens before your appointment time. SAILAJA BAKER MD Mar 20, 2017 09:06
[2017-03-20 10:55] VITALS: BP 129/68; PULSE 77; RESP 18; TEMP 98.4
--- NOTE | 2017-03-20 11:09 | RADRPT ---
PROCEDURE: XR Chest. CLINICAL INDICATION: Check PICC line position. TECHNIQUE: Single frontal view. COMPARISON: Prior study done earlier the same day. FINDINGS: There is a right arm PICC line with the tip in the cavoatrial junction region. The lungs are clear. The heart is enlarged. There is calcification in the aorta consistent with atherosclerosis. There is no pleural effusion. There is no pneumothorax. IMPRESSION: 1. Satisfactory position of right arm PICC line. 2. Cardiomegaly and atherosclerosis. 3. Otherwise normal chest x-ray. RPTAT: QQ .Americo Zhang MD, MD Date Time Electronically viewed and signed by .Americo Zhang MD, MD on 03/20/2017 11:09 .R/
--- NOTE | 2017-03-20 11:09 | RADRPT ---
PROCEDURE: XR Chest. CLINICAL INDICATION: Check PICC line position. TECHNIQUE: Single frontal view. COMPARISON: 03/09/2017. FINDINGS: There is a right arm PICC line with the tip in the right brachiocephalic vein. The lungs are clear. The heart is mildly enlarged. There is calcification in the aorta consistent with atherosclerosis. There is no pleural effusion. There is no pneumothorax. IMPRESSION: 1. The right arm PICC line should be advanced 7 cm. 2. Mild cardiomegaly. Atherosclerosis. 3. Otherwise unremarkable study. RPTAT: QQ .Americo Zhang MD, MD Date Time Electronically viewed and signed by .Americo Zhang MD, MD on 03/20/2017 11:09 .R/
== END 2017-03-20 10:58 | disposition home or self-care (01) ==
LOC: E/R 08:14
DX: T82.898A Other specified complication of vascular prosthetic devices, implants and grafts, initial encounter (principal); J45.909 Unspecified asthma, uncomplicated; I10 Essential (primary) hypertension; F17.210 Nicotine dependence, cigarettes, uncomplicated; Y82.8 Other medical devices associated with adverse incidents; Z79.01 Long term (current) use of anticoagulants; Z79.82 Long term (current) use of aspirin; Z98.61 Coronary angioplasty status
CPT/HCPCS: 36569; 71010; C1769

== ENCOUNTER 2017-03-30 22:18 | Inpatient (IN) | payer MEDICARE, OTHER ==
[~2017-03-30] VITALS: Ht 170.2 cm; Wt 93.2 kg
--- NOTE | 2017-03-30 22:51 | ERA ---
ER Documentation Chief Complaint Date/Time DATE: 03/30/17 TIME: 22:50 Chief Complaint sent by pmd further eval. on home iv daptomycin for bone infec. has picc HPI The patient is 56-year-old male is presenting to the ER because he ran out of his daptomycin medication. He is supposed to take daptomycin IV once a day in the morning, administered by home health nurse. His last dose was this morning. He was discharged with vancomycin due to left second toe osteomyelitis a few weeks ago, the vancomycin was later changed to daptomycin about 8 days ago and he is supposed to have daptomycin IV for 14 more days. He called his doctor Dr. Yadav this morning who asked him to come to the ER for admission. His left second toe is looking better to him, denies fever, chills, neck pain, chest pain, dyspnea, abdominal pain, vomiting, diarrhea. He smokes half a pack a day Past medical history: Hypertension, asthma, dyslipidemia, depression, CAD, peripheral vascular disease Past medical history: Left second toe hammertoe surgery, stent PCI ROS All systems reviewed and are negative except as per history of present illness. Medications Home Meds Active Scripts Hydrocodone/Acetaminophen ([place] 5-325 Tablet) 1 Each Tablet, 1 EACH PO Q4 for PAIN, #30 TAB Prov:TARIQ HI 03/16/17 Nicotine* (Nicotine* Patch) 21 mg/day Patch, 1 PATCH TRANSDERM DAILY@21 for 30 Days Prov:TARIQ HI 03/16/17 Clopidogrel Bisulfate (Clopidogrel) 75 Mg Tab, 75 MG PO DAILY for 30 Days Prov:LEXA HALL NP 10/14/14 Reported Medications Carisoprodol* (Carisoprodol*) 350 Mg Tablet, 350 MG PO Q8 Y for MUSCLE SPASMS, TAB 03/02/17 Gabapentin* (Gabapentin*) 300 Mg Capsule, 300 MG PO TID, #90 CAP 01/29/17 Ropinirole Hcl* (Ropinirole Hcl*) 0.5 Mg Tablet, 0.5 MG PO HS, TAB 01/29/17 Carvedilol* (Carvedilol*) 25 Mg Tablet, 25 MG PO BID, #60 TAB 01/29/17 Aspirin* (Aspirin* EC) 81 Mg Tablet., 81 MG PO DAILY, TAB 10/13/14 Losartan-Hydrochlorothiazide (Hyzaar) 50-12.5 Mg Tab, 1 TAB PO DAILY, TAB 10/13/14 Allergies Allergies: Coded Allergies: morphine (Verified Allergy, Unknown, ITCHING, 03/30/17) PMhx/Soc History of Surgery: Yes (STENT PLACEMENT,FOOT TOE SX,RING FINGER SX.) Anesthesia Reaction: Yes (ONCE,HARD TO WAKE UP.) Hx Neurological Disorder: Yes (NEUROPATHY) Hx Respiratory Disorders: Yes (HX ASTHMA) Hx Cardiac Disorders: Yes (HTN,HYPERLIPIDEMIA) Hx Psychiatric Problems: Yes (DEPRESSION) Hx Alcohol Use: Yes (NOT VERY OFTEN.) Hx Substance Use: No Hx Tobacco Use: Yes Physical Exam Vitals Vital Signs Date Time Temp Pulse Resp B/P Pulse Ox O2 Delivery O2 Flow Rate FiO2 03/30/17 22:29 98.7 105 18 144/71 96 Physical Exam Const: No acute distress. Head: Atraumatic. Eyes: Normal Conjunctiva. ENT: Normal External Ears, Nose and Mouth. Neck: Full range of motion. No meningismus. Resp: Clear to auscultation bilaterally. Cardio: Regular rate and rhythm. Abd: Soft, non distended, normal bowel sounds, non tender. Skin: No petechiae or rashes. Back: No midline or flank tenderness. Ext: Left second toe is minimally edematous, chronic discolored. No calf tenderness Neur: Awake and alert. No focal deficit Psych: Normal Mood and Affect. Procedures/MDM MEDICAL MAKING DECISION: The patient is a 56-year-old male, presenting to the ER for admission due to ongoing IV antibiotic for left second toe osteomyelitis. The differential diagnoses considered include but are not limited to cellulitis, abscess, worsening osteomyelitis Labs are pending Departure Diagnosis: Primary Impression: Toe osteomyelitis, left Condition: Stable Comments I discussed the patient with Dr. Gee, who was on-call for his physician Dr. Yadav. He agreed to admit the patient to medical surgery bed at 1110 pm JULIO CÉSAR MAN MD Mar 30, 2017 22:51
[2017-03-30 23:38] LABS: ADD SCAN DIFF NO
[2017-03-30 23:39] LABS: BASOPHIL # 0.1 10^3/ul (0.0-0.1); BASOPHILS % 0.5 % (0.0-2.0); EOSINOPHILS # 0.3 10^3/ul (0.0-0.5); EOSINOPHILS % 3.1 % (0.0-7.0); HEMATOCRIT 37.3 % (42.0-52.0); HEMOGLOBIN 12.6 g/dl (14.0-18.0); LYMPHOCYTES # 2.3 10^3/ul (0.8-2.9); LYMPHOCYTES % 21.9 % (15.0-51.0); MEAN CORPUSCULAR HEMOGLOBIN 30.3 pg (29.0-33.0); MEAN CORPUSCULAR HGB CONC 33.8 g/dl (32.0-37.0); MEAN CORPUSCULAR VOLUME 89.7 fl (82.0-101.0); MONOCYTES % 9.5 % (0.0-11.0); NEUTROPHIL # 6.8 10^3/ul (1.6-7.5); NEUTROPHILS % 64.5 % (39.0-77.0); PLATELET COUNT 243 10^3/UL (140-415); RED BLOOD COUNT 4.16 10^6/ul (4.70-6.10); WHITE BLOOD COUNT 10.5 10^3/ul (4.8-10.8)
[2017-03-31] MEDS ORDERED: VANCOMYCIN IV PER PHARMACY XX SCH
[2017-03-31] MEDS ORDERED: ONDANSETRON 4 MG INJ IV PRN
[2017-03-31] MEDS ORDERED: ACETAMINOPHEN 325 MG TAB PO PRN
[2017-03-31] MEDS ORDERED: NACL 0.9% 3 ML SYG IV SCH
[2017-03-31] MEDS ORDERED: morphine 2 MG INJ IV PRN
[2017-03-31] MEDS ORDERED: DAPT500V5 IVPB (00:04)
[2017-03-31 00:20] LABS: CALCIUM 9.6 mg/dl (8.4-10.2); CREATININE 1.31 mg/dl (0.61-1.24); POTASSIUM 3.7 mmol/L (3.5-5.1)
[2017-03-31] MEDS ORDERED: VANCOMYCIN 1.75 GM in SOD CHLORIDE 0.9% 500 ML IVPB ONE (01:00)
[2017-03-31 01:09] VITALS: BP 134/71; RESP 20
[2017-03-31 01:10] VITALS: BP 131/70; PULSE 80; RESP 18
[2017-03-31 05:20] LABS: ADD SCAN DIFF NO
[2017-03-31 05:32] LABS: BASOPHIL # 0.1 10^3/ul (0.0-0.1); BASOPHILS % 0.6 % (0.0-2.0); EOSINOPHILS # 0.4 10^3/ul (0.0-0.5); EOSINOPHILS % 3.4 % (0.0-7.0); HEMATOCRIT 38.9 % (42.0-52.0); HEMOGLOBIN 12.9 g/dl (14.0-18.0); LYMPHOCYTES # 2.1 10^3/ul (0.8-2.9); LYMPHOCYTES % 20.4 % (15.0-51.0); MEAN CORPUSCULAR HEMOGLOBIN 29.8 pg (29.0-33.0); MEAN CORPUSCULAR HGB CONC 33.2 g/dl (32.0-37.0); MEAN CORPUSCULAR VOLUME 89.8 fl (82.0-101.0); MEAN PLATELET VOLUME 10.1 fl (7.4-10.4); MONOCYTE # 1.2 10^3/ul (0.3-0.9); MONOCYTES % 11.3 % (0.0-11.0); NEUTROPHIL # 6.7 10^3/ul (1.6-7.5); NEUTROPHILS % 63.7 % (39.0-77.0); PLATELET COUNT 229 10^3/UL (140-415); RED BLOOD COUNT 4.33 10^6/ul (4.70-6.10); RED CELL DISTRIBUTION WIDTH 13.1 % (11.5-14.5); WHITE BLOOD COUNT 10.4 10^3/ul (4.8-10.8)
[2017-03-31 05:58] LABS: ALBUMIN 4.2 g/dl (3.3-4.9); ALBUMIN/GLOBULIN RATIO 1.75; CALCIUM 9.5 mg/dl (8.4-10.2); CREATININE 1.2 mg/dl (0.61-1.24); POTASSIUM 3.6 mmol/L (3.5-5.1); TOTAL PROTEIN 6.6 g/dl (6.1-8.1)
[2017-03-31 07:31] VITALS: BP 133/81; RESP 19
[2017-03-31] MEDS: FAMOTIDINE 20 MG INJ IV SCH ×2 (08:18→22:56)
[2017-03-31] MEDS: ENOXAPARIN 30 MG/0.3 ML SYG SC SCH (08:23)
--- NOTE | 2017-03-31 11:46 | HP ---
Date/Time of Note Date/Time of Note DATE: 03/31/17 TIME: 11:43 Assessment/Plan VTE Prophylaxis VTE Prophylaxis Intervention: other Lines/Catheters IV Catheter Type (from [facility]): PICC Line Central line still needed: Yes Assessment/Plan Chief Complaint/Hosp Course 1) osteomyellitis - continue vancomycin - monitor clinically Problems: HPI/ROS Admit Date/Time Admit Date/Time Mar 30, 2017 at 23:16 Hx of Present Illness Patient with recent admission for osteomyelitis sent home on intravenous antibiotics (vancomycin) comes in because he was changed to a different antibiotics and was told to pay $900 and because he couldn't afford it, he came back to hospital. PMH/Family/Social Past Medical History Medical History: coronary artery disease Past Surgical History Past Surgical Hx: angioplasty, other Social History Smoking Status: Current every day smoker Exam/Review of Systems Vital Signs Vitals Vital Signs Date Time Temp Pulse Resp B/P Pulse Ox O2 Delivery O2 Flow Rate FiO2 03/31/17 07:31 98.2 73 19 133/81 95 03/31/17 01:10 Room Air Intake and Output 03/30/17 03/30/17 03/31/17 15:00 23:00 07:00 Intake Total 700 ml Balance 700 ml Exam Constitutional: well developed Head: atraumatic, normocephalic Respiratory: clear to auscultation Cardiovascular: regular rate and rhythm Gastrointestinal: non-tender, soft Extremities: normal pulses Labs Result Diagram: 03/31/1741903/31/17419 Medications Medications Current Medications Ondansetron HCl (Zofran Inj) 4 mg Q6H PRN IV NAUSEA AND/OR VOMITING; Start 03/31 at 00:00 Acetaminophen (Tylenol Tab) 650 mg Q6H PRN PO PAIN LEVEL 1-3 OR FEVER; Start at 00:00 Famotidine (Pepcid Iv) 20 mg Q12 IV Last administered on 03/31/17 08:18; Admin Dose 20 MG; Start 03/31/17 at 09:00 Enoxaparin Sodium 30 mg 30 mg DAILY SC Last administered on 03/31/17 08:23; Admin Dose 30 MG; Start 03/31/17 at 09:00 Vancomycin HCl/ Sodium Chloride (Vancocin/NS) 250 ml @ 83.333 mls/ hr Q12H IVPB ; Start 03/31/17 at 13:00 Miscellaneous Information (*Rx Drug Level Order Reminder*) VANCOMYCIN TROUGH 04/01 AT 1200 ONCE ONCE XX ; Start 04/01/17 at 12:00; Stop 04/01/17 at 12:01 RAFAEL PAK Mar 31, 2017 11:45
[2017-03-31] MEDS ORDERED: CARISOPRODOL 350 MG TAB PO PRN (12:00)
[2017-03-31] MEDS: HYDROCODONE/APAP (5/325) TAB PO SCH ×3 (13:00→22:56)
[2017-03-31] MEDS: GABAPENTIN 300 MG CAP PO SCH ×2 (13:20→22:14)
[2017-03-31] MEDS: CLOPIDOGREL 75 MG TAB PO SCH (13:20)
[2017-03-31] MEDS: ASPIRIN (EC) 81 MG TAB PO SCH (13:20)
[2017-03-31] MEDS: VANCOMYCIN 1.25 GM in SOD CHLORIDE 0.9% 250 ML IVPB SCH (13:20)
[2017-03-31 21:03] VITALS: BP 115/69; RESP 20
[2017-03-31] MEDS: NICOTINE (21 MG/24 HR) PATCH TRANSDERM SCH (22:13)
[2017-03-31] MEDS: ROPINIROLE 1 MG TAB PO SCH (22:13)
[2017-04-01] VITALS: BP 123/78; PULSE 55; RESP 19
[2017-04-01] MEDS: HYDROCODONE/APAP (5/325) TAB PO SCH ×6 (01:00→20:12)
[2017-04-01] MEDS: VANCOMYCIN 1.25 GM in SOD CHLORIDE 0.9% 250 ML IVPB SCH ×2 (02:18→14:25)
[2017-04-01 06:13] LABS: CREATININE 0.9 mg/dl (0.61-1.24)
[2017-04-01] MEDS: FAMOTIDINE 20 MG INJ IV SCH ×2 (08:53→20:12)
[2017-04-01] MEDS: CLOPIDOGREL 75 MG TAB PO SCH (08:53)
[2017-04-01] MEDS: GABAPENTIN 300 MG CAP PO SCH ×3 (08:53→20:12)
[2017-04-01] MEDS: ASPIRIN (EC) 81 MG TAB PO SCH (08:53)
[2017-04-01] MEDS: ENOXAPARIN 30 MG/0.3 ML SYG SC SCH (08:55)
[2017-04-01 09:30] VITALS: BP 142/65; RESP 19
--- NOTE | 2017-04-01 11:50 | PN ---
Date/Time of Note Date/Time of Note DATE: 04/01/17 TIME: 11:49 Assessment/Plan VTE Prophylaxis VTE Prophylaxis Intervention: other Lines/Catheters IV Catheter Type (from [facility]): PICC Line Central line still needed: Yes Assessment/Plan Chief Complaint/Hosp Course 1) osteomyellitis - continue vancomycin - monitor clinically Problems: Subjective 24 Hr Interval Summary Free Text/Dictation Patient denies any complaints, though he states that last night he had been unable to sleep Exam/Review of Systems Vital Signs Vitals Vital Signs Date Time Temp Pulse Resp B/P Pulse Ox O2 Delivery O2 Flow Rate FiO2 04/01/17 09:30 99.6 65 19 142/65 98 04/01/17 00:00 Room Air Intake and Output 03/31/17 03/31/17 04/01/17 15:00 23:00 07:00 Intake Total 1410 ml 900 ml Output Total 200 ml 400 ml Balance 1210 ml 500 ml Exam Constitutional: well developed Head: atraumatic, normocephalic Neck: supple Respiratory: clear to auscultation Cardiovascular: regular rate and rhythm Extremities: normal pulses Results Result Diagram: 03/31/17 0420 04/01/17 0420 Results 24 hrs Laboratory Tests Test 04/01/17 04:20 Blood Urea Nitrogen 22 #H Creatinine 0.90 Medications Medications Current Medications Ondansetron HCl (Zofran Inj) 4 mg Q6H PRN IV NAUSEA AND/OR VOMITING; Start 03/31 at 00:00 Acetaminophen (Tylenol Tab) 650 mg Q6H PRN PO PAIN LEVEL 1-3 OR FEVER; Start at 00:00 Famotidine (Pepcid Iv) 20 mg Q12 IV Last administered on 04/01/17 08:53; Admin Dose 20 MG; Start 03/31/17 at 09:00 Enoxaparin Sodium 30 mg 30 mg DAILY SC Last administered on 04/01/17 08:55; Admin Dose 30 MG; Start 03/31/17 at 09:00 Vancomycin HCl/ Sodium Chloride (Vancocin/NS) 250 ml @ 83.333 mls/ hr Q12H IVPB Last administered on 04/01/17 02:18; Admin Dose 83.333 MLS/HR; Start at 13:00 Miscellaneous Information (*Rx Drug Level Order Reminder*) VANCOMYCIN TROUGH 04/01 AT 1200 ONCE ONCE XX ; Start 04/01/17 at 12:00; Stop 04/01/17 at 12:01 Aspirin (Halfprin) 81 mg DAILY PO Last administered on 04/01/17 08:53; Admin Dose 81 MG; Start 03/31/17 at 13:00 Carisoprodol (Soma) 350 mg Q8 PRN PO MUSCLE SPASMS; Start 03/31/17 at 12:00 Carvedilol (Coreg) 25 mg BID PO Last administered on 04/01/17 08:54; Admin Dose 25 MG; Start 03/31/17 at 13:00 Clopidogrel Bisulfate (plaVIX) 75 mg DAILY PO Last administered on 04/01/17 08: 53; Admin Dose 75 MG; Start 03/31/17 at 13:00 Gabapentin (Neurontin) 300 mg TID PO Last administered on 04/01/17 08:53; Admin Dose 300 MG; Start 03/31/17 at 13:00 Acetaminophen/ Hydrocodone Bitart ([place] (5/325)) 1 tab Q4 PO Last administered on 04/01/17 10:09; Admin Dose 1 TAB; Start 03/31/17 at 13:00 Nicotine (Nicoderm 21 Mg/ 24hr) 1 patch DAILY@21 TRANSDERM Last administered on 03/31/17 22:13; Admin Dose 1 PATCH; Start 03/31/17 at 21:00 Ropinirole HCl (Requip) 1 mg HS PO Last administered on 03/31/17 22:13; Admin Dose 1 MG; Start 03/31/17 at 21:00 RAFAEL PAK Apr 01, 2017 11:50
[2017-04-01 19:13] VITALS: BP 140/84; RESP 16
[2017-04-01 20:00] VITALS: Ht 170.2 cm; Wt 93.2 kg
[2017-04-01] MEDS: ROPINIROLE 1 MG TAB PO SCH (20:13)
[2017-04-01] MEDS: NICOTINE (21 MG/24 HR) PATCH TRANSDERM SCH (20:13)
[2017-04-02] MEDS: VANCOMYCIN 1.5 GM in SOD CHLORIDE 0.9% 250 ML IVPB SCH ×2 (01:18→13:13)
[2017-04-02] MEDS: HYDROCODONE/APAP (5/325) TAB PO SCH ×6 (01:18→20:31)
[2017-04-02 05:08] LABS: ADD SCAN DIFF NO
[2017-04-02 05:16] LABS: BASOPHIL # 0.1 10^3/ul (0.0-0.1); BASOPHILS % 0.6 % (0.0-2.0); EOSINOPHILS # 0.3 10^3/ul (0.0-0.5); EOSINOPHILS % 3.3 % (0.0-7.0); HEMATOCRIT 38.1 % (42.0-52.0); HEMOGLOBIN 12.3 g/dl (14.0-18.0); LYMPHOCYTES # 1.9 10^3/ul (0.8-2.9); LYMPHOCYTES % 22.8 % (15.0-51.0); MEAN CORPUSCULAR HEMOGLOBIN 29.2 pg (29.0-33.0); MEAN CORPUSCULAR HGB CONC 32.3 g/dl (32.0-37.0); MEAN CORPUSCULAR VOLUME 90.5 fl (82.0-101.0); MEAN PLATELET VOLUME 10.3 fl (7.4-10.4); MONOCYTE # 0.7 10^3/ul (0.3-0.9); MONOCYTES % 9.1 % (0.0-11.0); NEUTROPHIL # 5.2 10^3/ul (1.6-7.5); NEUTROPHILS % 63.3 % (39.0-77.0); PLATELET COUNT 197 10^3/UL (140-415); RED BLOOD COUNT 4.21 10^6/ul (4.70-6.10); RED CELL DISTRIBUTION WIDTH 12.9 % (11.5-14.5); WHITE BLOOD COUNT 8.2 10^3/ul (4.8-10.8)
[2017-04-02 05:34] LABS: CREATININE 1.02 mg/dl (0.61-1.24)
[2017-04-02 08:00] VITALS: BP 136/81; RESP 18
[2017-04-02] MEDS: FAMOTIDINE 20 MG INJ IV SCH (09:34)
[2017-04-02] MEDS: ASPIRIN (EC) 81 MG TAB PO SCH (09:34)
[2017-04-02] MEDS: CLOPIDOGREL 75 MG TAB PO SCH (09:34)
[2017-04-02] MEDS: GABAPENTIN 300 MG CAP PO SCH ×3 (09:34→20:31)
[2017-04-02] MEDS: ENOXAPARIN 30 MG/0.3 ML SYG SC SCH (09:36)
--- NOTE | 2017-04-02 18:15 | PN ---
Date/Time of Note Date/Time of Note DATE: 04/02/17 TIME: 18:08 Assessment/Plan VTE Prophylaxis VTE Prophylaxis Intervention: SCD's Lines/Catheters IV C[facility]ter Type (from [facility]): PICC Line Central line still needed: Yes Assessment/Plan Chief Complaint/Hosp Course Patient remains hemodynamically stable, denies any nausea vomiting. Assessment/Plan - Left foot osteomyelitis, patient needs to be on vancomycin until 04/[address] Sorto, infection disease. - Status post left foot hammertoe surgery by Dr. Mcdaniel - Hypertension. Continue Coreg. 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 Continue aspirin and Plavix. - Dyslipidemia. Continue Plavix. - Peripheral vascular disease. - Tobacco dependence, cessation is advised, continue nicotine patch. Further recommendations based on clinical course. Plan of care discussed with Dr. Yadav. Problems: Exam/Review of Systems Vital Signs Vitals Vital Signs Date Time Temp Pulse Resp B/P Pulse Ox O2 Delivery O2 Flow Rate FiO2 04/02/17 08:00 98.3 72 18 136/81 98 04/01/17 00:00 Room Air Intake and Output 04/01/17 04/01/17 04/02/17 14:59 22:59 06:59 Intake Total 1450 ml 1390 ml Balance 1450 ml 1390 ml Exam Constitutional: alert, oriented Head: atraumatic, normocephalic Neck: supple Respiratory: normal air movement Cardiovascular: nl pulses Gastrointestinal: non-tender, soft Extremities: normal pulses Neurological: nl mental status Skin: nl turgor Results Result Diagram: 04/02/17 0430 04/02/17 0430 Results 24 hrs Laboratory Tests Test 04/02/17 04:30 White Blood Count 8.2 # Red Blood Count 4.21 L Hemoglobin 12.3 L Hematocrit 38.1 L Mean Corpuscular Volume 90.5 Mean Corpuscular Hemoglobin 29.2 Mean Corpuscular Hemoglobin Concent 32.3 Red Cell Distribution Width 12.9 Platelet Count 197 Mean Platelet Volume 10.3 Neutrophils % 63.3 Lymphocytes % 22.8 Monocytes % 9.1 Eosinophils % 3.3 Basophils % 0.6 Nucleated Red Blood Cells % 0.0 Neutrophils # 5.2 Lymphocytes # 1.9 Monocytes # 0.7 Eosinophils # 0.3 Basophils # 0.1 Nucleated Red Blood Cells # 0.0 Sodium Level 140 Potassium Level 4.0 Chloride Level 104 Carbon Dioxide Level 27 Anion Gap 13 Blood Urea Nitrogen 22 H Creatinine 1.02 Glucose Level 96 Calcium Level 9.0 Medications Medications Current Medications Ondansetron HCl (Zofran Inj) 4 mg Q6H PRN IV NAUSEA AND/OR VOMITING; Start 03/31 at 00:00 Acetaminophen (Tylenol Tab) 650 mg Q6H PRN PO PAIN LEVEL 1-3 OR FEVER; Start at 00:00 Enoxaparin Sodium (Lovenox) 30 mg DAILY SC Last administered on 04/02/17 09:36 ; Admin Dose 30 MG; Start 03/31/17 at 09:00 Aspirin (Halfprin) 81 mg DAILY PO Last administered on 04/02/17 09:34; Admin Dose 81 MG; Start 03/31/17 at 13:00 Carisoprodol (Soma) 350 mg Q8 PRN PO MUSCLE SPASMS; Start 03/31/17 at 12:00 Carvedilol (Coreg) 25 mg BID PO Last administered on 04/02/17 09:35; Admin Dose 25 MG; Start 03/31/17 at 13:00 Clopidogrel Bisulfate (plaVIX) 75 mg DAILY PO Last administered on 04/02/17 09 :34; Admin Dose 75 MG; Start 03/31/17 at 13:00 Gabapentin (Neurontin) 300 mg TID PO Last administered on 04/02/17 13:13; Admin Dose 300 MG; Start 03/31/17 at 13:00 Acetaminophen/ Hydrocodone Bitart ([place] (5/325)) 1 tab Q4 PO Last administered on 04/02/17 17:59; Admin Dose 1 TAB; Start 03/31/17 at 13:00 Nicotine (Nicoderm 21 Mg/ 24hr) 1 patch DAILY@21 TRANSDERM Last administered on 04/01/17 20:13; Admin Dose 1 PATCH; Start 03/31/17 at 21:00 Ropinirole HCl 1 mg 1 mg HS PO Last administered on 04/01/17 20:13; Admin Dose 1 MG; Start 03/31/17 at 21:00 Vancomycin HCl/ Sodium Chloride (Vancocin/NS) 250 ml @ 83.333 mls/ hr Q12H IVPB Last administered on 7/10/17at 13:13; Admin Dose 83.333 MLS/HR; Start 07/10 at 01:00 Famotidine (Pepcid) 20 mg Q12 PO ; Start 04/02/17 at 21:00 TARIQ HI Apr 02, 2017 18:15
[2017-04-02 19:05] VITALS: BP 133/68; RESP 21
[2017-04-02] MEDS: NICOTINE (21 MG/24 HR) PATCH TRANSDERM SCH (20:31)
[2017-04-02] MEDS: ROPINIROLE 1 MG TAB PO SCH (20:31)
[2017-04-02] MEDS: FAMOTIDINE 20 MG TAB PO SCH (20:31)
[2017-04-03] MEDS: VANCOMYCIN 1.5 GM in SOD CHLORIDE 0.9% 250 ML IVPB SCH ×2 (00:24→12:41)
[2017-04-03] MEDS: HYDROCODONE/APAP (5/325) TAB PO SCH ×6 (00:24→20:31)
[2017-04-03 05:16] LABS: ADD SCAN DIFF NO
[2017-04-03 05:19] LABS: BASOPHILS % 0.5 % (0.0-2.0); EOSINOPHILS # 0.3 10^3/ul (0.0-0.5); EOSINOPHILS % 4.3 % (0.0-7.0); HEMATOCRIT 36.7 % (42.0-52.0); LYMPHOCYTES # 1.4 10^3/ul (0.8-2.9); LYMPHOCYTES % 18.9 % (15.0-51.0); MEAN CORPUSCULAR HEMOGLOBIN 29.7 pg (29.0-33.0); MEAN CORPUSCULAR HGB CONC 32.7 g/dl (32.0-37.0); MEAN CORPUSCULAR VOLUME 90.8 fl (82.0-101.0); MEAN PLATELET VOLUME 10.4 fl (7.4-10.4); MONOCYTE # 0.8 10^3/ul (0.3-0.9); MONOCYTES % 10.5 % (0.0-11.0); NEUTROPHIL # 4.8 10^3/ul (1.6-7.5); NEUTROPHILS % 64.6 % (39.0-77.0); PLATELET COUNT 180 10^3/UL (140-415); RED BLOOD COUNT 4.04 10^6/ul (4.70-6.10); RED CELL DISTRIBUTION WIDTH 12.9 % (11.5-14.5); WHITE BLOOD COUNT 7.5 10^3/ul (4.8-10.8)
[2017-04-03 05:37] LABS: CALCIUM 8.7 mg/dl (8.4-10.2); CREATININE 0.99 mg/dl (0.61-1.24); POTASSIUM 4.4 mmol/L (3.5-5.1)
[2017-04-03 08:00] VITALS: BP 128/67; RESP 18
[2017-04-03] MEDS: CLOPIDOGREL 75 MG TAB PO SCH (08:20)
[2017-04-03] MEDS: ASPIRIN (EC) 81 MG TAB PO SCH (08:20)
[2017-04-03] MEDS: FAMOTIDINE 20 MG TAB PO SCH ×2 (08:20→20:30)
[2017-04-03] MEDS: GABAPENTIN 300 MG CAP PO SCH ×3 (08:20→20:30)
[2017-04-03] MEDS: ENOXAPARIN 30 MG/0.3 ML SYG SC SCH (08:23)
--- NOTE | 2017-04-03 15:40 | PN ---
Date/Time of Note Date/Time of Note DATE: 04/03/17 TIME: 15:39 Assessment/Plan VTE Prophylaxis VTE Prophylaxis Intervention: SCD's Lines/Catheters IV Catheter Type (from Nrsg): PICC Line Central line still needed: Yes Assessment/Plan Chief Complaint/Hosp Course Pain is well controlled, patient remains hemodynamically stable. Assessment/Plan - Left foot osteomyelitis, patient needs to be on vancomycin until 04/[address] Sorto, infection disease. - Status post left foot hammertoe surgery by Dr. Mcdaniel - Hypertension. Continue Coreg. 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 Continue aspirin and Plavix. - Dyslipidemia. Continue Plavix. - Peripheral vascular disease. - Tobacco dependence, cessation is advised, continue nicotine patch. Case management for arrangement of antibiotics by home health Further recommendations based on clinical course. Plan of care discussed with Dr. Yadav. Problems: Exam/Review of Systems Vital Signs Vitals Vital Signs Date Time Temp Pulse Resp B/P Pulse Ox O2 Delivery O2 Flow Rate FiO2 04/03/17 08:00 98.3 63 18 128/67 97 04/01/17 00:00 Room Air Intake and Output 04/02/17 04/02/17 04/03/17 15:00 23:00 07:00 Intake Total 1350 ml 1250 ml Balance 1350 ml 1250 ml Exam Constitutional: alert, oriented Head: atraumatic, normocephalic Neck: supple Respiratory: normal air movement Cardiovascular: nl pulses Gastrointestinal: non-tender, soft Extremities: normal pulses Neurological: nl mental status Skin: nl turgor Results Result Diagram: 04/03/17 0452 04/03/17 0450 Results 24 hrs Laboratory Tests Test 04/03/17 04:50 04/03/17 04:52 Sodium Level 135 Potassium Level 4.4 Chloride Level 107 Carbon Dioxide Level 26 Anion Gap 6 L Blood Urea Nitrogen 19 Creatinine 0.99 Glucose Level 99 Calcium Level 8.7 White Blood Count 7.5 Red Blood Count 4.04 L Hemoglobin 12.0 L Hematocrit 36.7 L Mean Corpuscular Volume 90.8 Mean Corpuscular Hemoglobin 29.7 Mean Corpuscular Hemoglobin Concent 32.7 Red Cell Distribution Width 12.9 Platelet Count 180 Mean Platelet Volume 10.4 Neutrophils % 64.6 Lymphocytes % 18.9 Monocytes % 10.5 Eosinophils % 4.3 Basophils % 0.5 Nucleated Red Blood Cells % 0.0 Neutrophils # 4.8 Lymphocytes # 1.4 Monocytes # 0.8 Eosinophils # 0.3 Basophils # 0.0 Nucleated Red Blood Cells # 0.0 Medications Medications Current Medications Ondansetron HCl (Zofran Inj) 4 mg Q6H PRN IV NAUSEA AND/OR VOMITING; Start 03/31 at 00:00 Acetaminophen (Tylenol Tab) 650 mg Q6H PRN PO PAIN LEVEL 1-3 OR FEVER; Start at 00:00 Enoxaparin Sodium (Lovenox) 30 mg DAILY SC Last administered on 04/03/17 08:23 ; Admin Dose 30 MG; Start 03/31/17 at 09:00 Aspirin (Halfprin) 81 mg DAILY PO Last administered on 04/03/17 08:20; Admin Dose 81 MG; Start 03/31/17 at 13:00 Carisoprodol (Soma) 350 mg Q8 PRN PO MUSCLE SPASMS; Start 03/31/17 at 12:00 Carvedilol (Coreg) 25 mg BID PO Last administered on 04/03/17 08:20; Admin Dose 25 MG; Start 03/31/17 at 13:00 Clopidogrel Bisulfate (plaVIX) 75 mg DAILY PO Last administered on 04/03/17 08 :20; Admin Dose 75 MG; Start 03/31/17 at 13:00 Gabapentin (Neurontin) 300 mg TID PO Last administered on 04/03/17 12:41; Admin Dose 300 MG; Start 03/31/17 at 13:00 Acetaminophen/ Hydrocodone Bitart ([place] (5/325)) 1 tab Q4 PO Last administered on 04/03/17 12:41; Admin Dose 1 TAB; Start 03/31/17 at 13:00 Nicotine (Nicoderm 21 Mg/ 24hr) 1 patch DAILY@21 TRANSDERM Last administered on 04/02/17 20:31; Admin Dose 1 PATCH; Start 03/31/17 at 21:00 Ropinirole HCl 1 mg 1 mg HS PO Last administered on 04/02/17 20:31; Admin Dose 1 MG; Start 03/31/17 at 21:00 Vancomycin HCl/ Sodium Chloride (Vancocin/NS) 250 ml @ 83.333 mls/ hr Q12H IVPB Last administered on 04/03/17 12:41; Admin Dose 83.333 MLS/HR; Start 07/10 at 01:00 Famotidine (Pepcid) 20 mg Q12 PO Last administered on 04/03/17 08:20; Admin Dose 20 MG; Start 04/02/17 at 21:00 Miscellaneous Information (*Rx Drug Level Order Reminder*) 1 ONCE ONCE XX ; Start 04/04/17 at 12:00; Stop 04/04/17 at 12:01 TARIQ HI Apr 03, 2017 15:40
[2017-04-03 19:15] VITALS: BP 128/73; RESP 10
--- NOTE | 2017-04-03 19:53 | CONS ---
Date/Time of Note Date/Time of Note DATE: 04/03/17 TIME: 19:52 Assessment/Plan Assessment/Plan Problems: (1) Toe osteomyelitis, left Status: Acute (2) Diabetes, polyneuropathy Additional Assessment/Plan Continue IVABx; will follow inhouse. Left second toe improved. No surgery recommended. Patient may weight-bear to tolerance on both feet. Thank you again for involving me in the care of this patient. If you have any questions regarding this case, please feel free to contact me at pager: [phone] or reach me at mobile: [phone]. Consultation Date/Type/Reason Admit Date/Time Mar 30, 2017 at 23:16 Date of Consultation: Apr 03, 2017 Type of Consultation: Foot and ankle surgery Reason for Consultation Evaluation of left second toe Referring Provider: ANGÉLICA HUSTON MD Hx of Present Illness Thank you very much for involving me in the care of this patient surgery on him in the past including the right second rigid hammertoe and recently. Patient is very familiar to me and up done the left second digit hammertoe deformities. Patient has had a recent admission for osteomyelitis of the left second toe and was treated and sent home on IV antibiotics. Patient says that he ran out of medication and then he was told that he has to pay $900 which he apparently did not have therefore his condition got worse and he came back to the hospital after speaking to his primary physician. Patient reports significant improvement since his return to the hospital. He denies current fever and chills. Denies chest pain or shortness of breath. Patient denies any pain in his feet and reports that the swelling in the left second toe is dramatically reduced. Denies trauma to his feet and reports no other issues. Constitutional: improved, no complaints Eyes: no complaints ENT: no complaints Respiratory: no complaints Cardiovascular: no complaints Gastrointestinal: no complaints Genitourinary: no complaints Musculoskeletal: no complaints Skin: no complaints Neurologic: no complaints Endocrine: no complaints Lymphatic: no complaints Psychological: nl mood/affect, no complaints Immunologic: no complaints Past Medical History As per history of present illness. Medical History: coronary artery disease Past Surgical History As per history of present illness. Past Surgical Hx: angioplasty, other Social History As per history of present illness. Smoking Status: Current every day smoker Exam/Review of Systems Vital Signs Vitals Vital Signs Date Time Temp Pulse Resp B/P Pulse Ox O2 Delivery O2 Flow Rate FiO2 04/03/17 19:15 98.7 58 10 128/73 98 04/01/17 00:00 Room Air Intake and Output 04/02/17 04/02/17 04/03/17 14:59 22:59 06:59 Intake Total 1350 ml 1250 ml Balance 1350 ml 1250 ml Exam Patient is laying supine in bed in no acute distress. Patient is on IV antibiotics. He has a PICC line placed in the right upper arm. Left second toe edema is significantly reduced since his last visit. There is minimum discoloration noted. There is no tenderness to examination of the left second and right second toes. Both toes are status post surgical correction with healed incision and no other sign of infection. Patient is morbidly obese however and does not appear to be in acute distress. Labs reviewed. Results Result Diagram: 04/03/17 0452 04/03/17 0450 Results 24 hrs Laboratory Tests Test 04/03/17 04:50 04/03/17 04:52 Sodium Level 135 Potassium Level 4.4 Chloride Level 107 Carbon Dioxide Level 26 Anion Gap 6 L Blood Urea Nitrogen 19 Creatinine 0.99 Glucose Level 99 Calcium Level 8.7 White Blood Count 7.5 Red Blood Count 4.04 L Hemoglobin 12.0 L Hematocrit 36.7 L Mean Corpuscular Volume 90.8 Mean Corpuscular Hemoglobin 29.7 Mean Corpuscular Hemoglobin Concent 32.7 Red Cell Distribution Width 12.9 Platelet Count 180 Mean Platelet Volume 10.4 Neutrophils % 64.6 Lymphocytes % 18.9 Monocytes % 10.5 Eosinophils % 4.3 Basophils % 0.5 Nucleated Red Blood Cells % 0.0 Neutrophils # 4.8 Lymphocytes # 1.4 Monocytes # 0.8 Eosinophils # 0.3 Basophils # 0.0 Nucleated Red Blood Cells # 0.0 Medications Medications Current Medications Ondansetron HCl (Zofran Inj) 4 mg Q6H PRN IV NAUSEA AND/OR VOMITING; Start 03/31 at 00:00 Acetaminophen (Tylenol Tab) 650 mg Q6H PRN PO PAIN LEVEL 1-3 OR FEVER; Start at 00:00 Enoxaparin Sodium (Lovenox) 30 mg DAILY SC Last administered on 04/03/17t 08:23 ; Admin Dose 30 MG; Start 03/31/17 at 09:00 Aspirin (Halfprin) 81 mg DAILY PO Last administered on 04/03/17 08:20; Admin Dose 81 MG; Start 03/31/17 at 13:00 Carisoprodol (Soma) 350 mg Q8 PRN PO MUSCLE SPASMS; Start 03/31/17 at 12:00 Carvedilol (Coreg) 25 mg BID PO Last administered on 04/03/17 08:20; Admin Dose 25 MG; Start 03/31/17 at 13:00 Clopidogrel Bisulfate (plaVIX) 75 mg DAILY PO Last administered on 04/03/17 08 :20; Admin Dose 75 MG; Start 03/31/17 at 13:00 Gabapentin (Neurontin) 300 mg TID PO Last administered on 04/03/17 12:41; Admin Dose 300 MG; Start 03/31/17 at 13:00 Acetaminophen/ Hydrocodone Bitart ([place] (5/325)) 1 tab Q4 PO Last administered on 04/03/17 16:36; Admin Dose 1 TAB; Start 03/31/17 at 13:00 Nicotine (Nicoderm 21 Mg/ 24hr) 1 patch DAILY@21 TRANSDERM Last administered on 04/02/17 20:31; Admin Dose 1 PATCH; Start 03/31/17 at 21:00 Ropinirole HCl 1 mg 1 mg HS PO Last administered on 04/02/17 20:31; Admin Dose 1 MG; Start 03/31/17 at 21:00 Vancomycin HCl/ Sodium Chloride (Vancocin/NS) 250 ml @ 83.333 mls/ hr Q12H IVPB Last administered on 04/03/17 12:41; Admin Dose 83.333 MLS/HR; Start 07/10 at 01:00 Famotidine (Pepcid) 20 mg Q12 PO Last administered on 04/03/17 08:20; Admin Dose 20 MG; Start 04/02/17 at 21:00 Miscellaneous Information (*Rx Drug Level Order Reminder*) 1 ONCE ONCE XX ; Start 04/04/17 at 12:00; Stop 04/04/17 at 12:01 JULIUS RUSHING DPM Apr 03, 2017 19:52
[2017-04-03] MEDS: ROPINIROLE 1 MG TAB PO SCH (20:30)
[2017-04-03] MEDS: NICOTINE (21 MG/24 HR) PATCH TRANSDERM SCH (20:31)
[2017-04-04] MEDS: VANCOMYCIN 1.5 GM in SOD CHLORIDE 0.9% 250 ML IVPB SCH ×2 (00:58→13:31)
[2017-04-04] MEDS: HYDROCODONE/APAP (5/325) TAB PO SCH ×5 (00:59→16:32)
[2017-04-04 05:34] LABS: ADD SCAN DIFF NO
[2017-04-04 05:38] LABS: BASOPHIL # 0.1 10^3/ul (0.0-0.1); BASOPHILS % 0.6 % (0.0-2.0); EOSINOPHILS # 0.4 10^3/ul (0.0-0.5); EOSINOPHILS % 5.1 % (0.0-7.0); HEMATOCRIT 36.1 % (42.0-52.0); HEMOGLOBIN 11.6 g/dl (14.0-18.0); LYMPHOCYTES # 1.5 10^3/ul (0.8-2.9); LYMPHOCYTES % 17.6 % (15.0-51.0); MEAN CORPUSCULAR HEMOGLOBIN 28.9 pg (29.0-33.0); MEAN CORPUSCULAR HGB CONC 32.1 g/dl (32.0-37.0); MEAN PLATELET VOLUME 10.4 fl (7.4-10.4); MONOCYTE # 0.9 10^3/ul (0.3-0.9); MONOCYTES % 10.6 % (0.0-11.0); NEUTROPHIL # 5.5 10^3/ul (1.6-7.5); NEUTROPHILS % 64.7 % (39.0-77.0); PLATELET COUNT 187 10^3/UL (140-415); RED BLOOD COUNT 4.01 10^6/ul (4.70-6.10); RED CELL DISTRIBUTION WIDTH 12.8 % (11.5-14.5); WHITE BLOOD COUNT 8.5 10^3/ul (4.8-10.8)
[2017-04-04 06:15] LABS: POTASSIUM 4.2 mmol/L (3.5-5.1)
[2017-04-04 07:57] VITALS: BP 127/71; RESP 18
[2017-04-04] MEDS: ASPIRIN (EC) 81 MG TAB PO SCH (09:02)
[2017-04-04] MEDS: FAMOTIDINE 20 MG TAB PO SCH ×2 (09:02→20:46)
[2017-04-04] MEDS: CLOPIDOGREL 75 MG TAB PO SCH (09:02)
[2017-04-04] MEDS: GABAPENTIN 300 MG CAP PO SCH ×3 (09:02→20:46)
[2017-04-04] MEDS: ENOXAPARIN 30 MG/0.3 ML SYG SC SCH (09:08)
--- NOTE | 2017-04-04 14:28 | PN ---
Date/Time of Note Date/Time of Note DATE: 04/04/17 TIME: 14:22 Assessment/Plan VTE Prophylaxis VTE Prophylaxis Intervention: SCD's Lines/Catheters IV Catheter Type (from Nrs): PICC Line Central line still needed: Yes Assessment/Plan Chief Complaint/Hosp Course Patient denies any pain, remains hemodynamically stable. Assessment/Plan - Left foot osteomyelitis, patient needs to be on vancomycin until 04/[address] Sorto, infection disease. - Status post left foot hammertoe surgery by Dr. Mcdaniel. - Hypertension. Continue Coreg. 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 Continue aspirin and Plavix. - Dyslipidemia. - Peripheral vascular disease. Continue Plavix. - Tobacco dependence, cessation is strongly advised, continue nicotine patch. Case management for arrangement of antibiotics by home health Further recommendations based on clinical course. Plan of care discussed with Dr. Yadav. Problems: Exam/Review of Systems Vital Signs Vitals Vital Signs Date Time Temp Pulse Resp B/P Pulse Ox O2 Delivery O2 Flow Rate FiO2 04/04/17 07:57 98.0 55 18 127/71 97 04/01/17 00:00 Room Air Intake and Output 04/03/17 04/03/17 04/04/17 14:59 22:59 06:59 Intake Total 1870 ml 1450 ml Balance 1870 ml 1450 ml Exam Constitutional: alert, oriented Head: atraumatic, normocephalic Neck: supple Respiratory: normal air movement Cardiovascular: nl pulses Gastrointestinal: non-tender, soft Extremities: normal pulses Neurological: nl mental status Skin: nl turgor Results Result Diagram: 04/04/17 0505 04/04/17 0505 Results 24 hrs Laboratory Tests Test 04/04/17 05:05 04/04/17 11:51 White Blood Count 8.5 Red Blood Count 4.01 L Hemoglobin 11.6 L Hematocrit 36.1 L Mean Corpuscular Volume 90.0 Mean Corpuscular Hemoglobin 28.9 L Mean Corpuscular Hemoglobin Concent 32.1 Red Cell Distribution Width 12.8 Platelet Count 187 Mean Platelet Volume 10.4 Neutrophils % 64.7 Lymphocytes % 17.6 Monocytes % 10.6 Eosinophils % 5.1 Basophils % 0.6 Nucleated Red Blood Cells % 0.0 Neutrophils # 5.5 Lymphocytes # 1.5 Monocytes # 0.9 Eosinophils # 0.4 Basophils # 0.1 Nucleated Red Blood Cells # 0.0 Sodium Level 131 L Potassium Level 4.2 Chloride Level 101 Carbon Dioxide Level 27 Anion Gap 7 L Blood Urea Nitrogen 21 H Creatinine 1.00 Glucose Level 87 Calcium Level 9.0 Vancomycin Level Trough 17.1 Medications Medications Current Medications Ondansetron HCl (Zofran Inj) 4 mg Q6H PRN IV NAUSEA AND/OR VOMITING; Start 03/31 at 00:00 Acetaminophen (Tylenol Tab) 650 mg Q6H PRN PO PAIN LEVEL 1-3 OR FEVER; Start at 00:00 Enoxaparin Sodium (Lovenox) 30 mg DAILY SC Last administered on 04/04/17 09:08 ; Admin Dose 30 MG; Start 03/31/17 at 09:00 Aspirin (Halfprin) 81 mg DAILY PO Last administered on 04/04/17 09:02; Admin Dose 81 MG; Start 03/31/17 at 13:00 Carisoprodol (Soma) 350 mg Q8 PRN PO MUSCLE SPASMS; Start 03/31/17 at 12:00 Carvedilol (Coreg) 25 mg BID PO Last administered on 04/04/17 09:03; Admin Dose 25 MG; Start 03/31/17 at 13:00 Clopidogrel Bisulfate (plaVIX) 75 mg DAILY PO Last administered on 04/04/17 09 :02; Admin Dose 75 MG; Start 03/31/17 at 13:00 Gabapentin (Neurontin) 300 mg TID PO Last administered on 04/04/17 12:59; Admin Dose 300 MG; Start 03/31/17 at 13:00 Acetaminophen/ Hydrocodone Bitart ([place] (5/325)) 1 tab Q4 PO Last administered on 04/04/17 05:24; Admin Dose 1 TAB; Start 03/31/17 at 13:00 Nicotine (Nicoderm 21 Mg/ 24hr) 1 patch DAILY@21 TRANSDERM Last administered on 04/03/17 20:31; Admin Dose 1 PATCH; Start 03/31/17 at 21:00 Ropinirole HCl 1 mg 1 mg HS PO Last administered on 04/03/17 20:30; Admin Dose 1 MG; Start 03/31/17 at 21:00 Vancomycin HCl/ Sodium Chloride (Vancocin/NS) 250 ml @ 83.333 mls/ hr Q12H IVPB Last administered on 04/04/17 13:31; Admin Dose 83.333 MLS/HR; Start 07/10 at 01:00; Stop 04/04/17 at 19:00 Famotidine 20 mg 20 mg Q12 PO Last administered on 04/04/17 09:02; Admin Dose 20 MG; Start 04/02/17 at 21:00 Vancomycin HCl/ Sodium Chloride (Vancocin/NS) 250 ml @ 83.333 mls/ hr Q12H IVPB ; Start 04/05/17 at 01:00 TARIQ HI Apr 04, 2017 14:27
[2017-04-04] MEDS ORDERED: HYDROCODONE/APAP (5/325) TAB PO PRN (18:30)
[2017-04-04 19:00] VITALS: BP 149/81; RESP 18
--- NOTE | 2017-04-04 19:27 | PN ---
Date/Time of Note Date/Time of Note DATE: 04/04/17 TIME: 19:24 Assessment/Plan Lines/Catheters IV [facility] Type (from [facility]): PICC Line Assessment/Plan Problems: (1) Diabetes, polyneuropathy (2) Toe osteomyelitis, left Status: Acute Assessment/Plan Continue IV antibiotics. Continue weightbearing to tolerance. No dressing recommended. No surgery recommended. Patient will be followed in-house. Subjective 24 Hr Interval Summary Patient was seen at bedside. Patient is in no acute distress. Denies overnight adverse events. Denies fever, chills, nausea or vomiting. Reports bandages are being changed daily. Denies recent trauma. Constitutional: BM, ambulates, flatus, improved, no complaints, urine output Exam/Review of Systems Vital Signs Vitals Vital Signs Date Time Temp Pulse Resp B/P Pulse Ox O2 Delivery O2 Flow Rate FiO2 04/04/17 07:57 98.0 55 18 127/71 97 04/01/17 00:00 Room Air Intake and Output 04/03/17 04/03/17 04/04/17 15:00 23:00 07:00 Intake Total 1870 ml 1450 ml Balance 1870 ml 1450 ml Exam Free Text/Dictation Morbidly obese male in no acute distress. PICC line left upper arm present. No sign of infection present. Left second toe edema is reduced and there is no active erythema. No open wound noted on both feet. Decreased sensation noted to sharp, dull, vibratory and temperature stimuli. Dorsalis pedis pulse and posterior tibial pulses palpable on both lower extremities. Results Result Diagram: 04/04/17 0505 04/04/17 0505 JULIUS RUSHING DPM Apr 04, 2017 19:26
[2017-04-04] MEDS: ROPINIROLE 1 MG TAB PO SCH (20:46)
[2017-04-04] MEDS: NICOTINE (21 MG/24 HR) PATCH TRANSDERM SCH (20:46)
[2017-04-05] MEDS: VANCOMYCIN 1.25 GM in SOD CHLORIDE 0.9% 250 ML IVPB SCH ×2 (00:59→12:26)
[2017-04-05 06:03] LABS: CREATININE 0.95 mg/dl (0.61-1.24)
[2017-04-05] MEDS: GABAPENTIN 300 MG CAP PO SCH ×3 (08:18→20:22)
[2017-04-05] MEDS: FAMOTIDINE 20 MG TAB PO SCH ×2 (08:18→20:22)
[2017-04-05] MEDS: CLOPIDOGREL 75 MG TAB PO SCH (08:19)
[2017-04-05] MEDS: ASPIRIN (EC) 81 MG TAB PO SCH (08:19)
[2017-04-05] MEDS: ENOXAPARIN 30 MG/0.3 ML SYG SC SCH (08:23)
[2017-04-05 08:24] VITALS: BP 162/83; RESP 20
--- NOTE | 2017-04-05 13:07 | CONS ---
DATE OF ADMISSION: 03/30/2017 DATE OF CONSULTATION: VASCULAR SURGERY CONSULTATION Dear Doctors, The patient is a 56-year-old gentleman who is morbidly obese, a smoker, whom had presented to [facility] secondary to a left lower extremity foot infection and second toe superficial gangrene back in early February. The patient was started on IV antibiotics and was discharged home. The patient did have a history of a second toe which was a hammertoe and underwent surgery and soon developed an infection after that. The patient has been treated with antibiotics at his Home Health. Unfortunately, it seems that the patient had difficulty with payments for his management, therefore came back to the hospital to be readmitted for the continuation of his antibiotics. At the moment, the patient denies shortness of breath, chest pain, nausea, vomiting, fever or chills. The patient denies any ; however, he does have short distance claudication about 1 block with bilateral lower extremities. The patient had refrained from using any cigarettes over the past few weeks. He does wear a nicotine patch and had been a smoker for one pack a day for the past 40 years. REVIEW OF SYSTEMS: 14-point review performed, negative other than as mentioned in HPI. PAST MEDICAL HISTORY: 1. Coronary artery disease. 2. Morbidly obese. 3. Hypertension. 4. Bilateral lower extremity atherosclerosis. 5. Dyslipidemia. 6. Smoker. 7. Hypertension. PAST SURGICAL HISTORY: 1. Right foot hammertoe surgery. 2. Left foot hammertoe surgery. 3. History of coronary artery intervention with PCI and angioplasty. 4. 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 FAMILY HISTORY: Hypertension, coronary artery disease. SOCIAL HISTORY: Active smoker. Denies current tobacco, alcohol or illicit drug use. PHYSICAL EXAMINATION: GENERAL: Alert and oriented x3. No apparent distress. HEENT: Normocephalic, atraumatic. NIKITA. EOMI. Mucosa moist. NECK: Supple. No carotid bruit. LUNGS: Clear to auscultation bilaterally, no crackles. CARDIAC: S1, S2 present. No murmurs. ABDOMEN: Soft, nontender, nondistended. Bowel sounds positive. Truncal obesity. EXTREMITIES: Right lower extremity: Palpable femoral pulse, faint pedal pulse. Motor and sensory intact. Capillary refill 3 to 4 seconds. No surgical scars. Left lower extremity: Palpable femoral pulse, faint pedal pulse. Motor and sensory intact. Capillary refill 3 seconds. Left second toe with edema, however no active erythema or tenderness. ASSESSMENT AND PLAN: 1. Bilateral lower extremity atherosclerosis with left lower extremity second toe osteomyelitis: It seems that the patient has been coming along well from the standpoint of his IV antibiotics. We would recommend for him to continue with his current IV antibiotics management and for eventual physical therapy to help assist with his current claudication. No current intervention is recommended from a vascular surgery standpoint unless the patient is having disabling claudication and we will continue with our vascular surveillance. 2. Will also schedule the patient for bilateral lower extremity venous reflux studies as the patient has bilateral lower extremity venous insufficiency. 3. Optimize vascular status ( , nutrition, exercise, sugar control, antiplatelets). 4. Recommend weight loss and continue with his tobacco cessation. 5. Discussed findings, plan and management with the patient, he understands. Thank you for allowing us to participate in the care of your patient. Please call with any questions. Dictated By: Luis Alberto Red MD /rene/john /Document#: [id number]
--- NOTE | 2017-04-05 13:57 | PN ---
Date/Time of Note Date/Time of Note DATE: 04/05/17 TIME: 13:53 Assessment/Plan VTE Prophylaxis VTE Prophylaxis Intervention: other Lines/Catheters IV Catheter Type (from Nrsg): PICC Line Central line still needed: Yes Assessment/Plan Assessment/Plan - Left foot osteomyelitis, patient needs to be on vancomycin until 04/[address] Sorto, infection disease. - Status post left foot hammertoe surgery by Dr. Mcdaniel. - Hypertension. Continue Coreg. - Coronary artery disease status post MUSIC PROFESSOR of left circumflex. Continue aspirin and Plavix. - Dyslipidemia. - Peripheral vascular disease. Continue Plavix. - Tobacco dependence, cessation is strongly advised, continue nicotine patch. Case management for arrangement of antibiotics by home health Further recommendations based on clinical course. Plan of care discussed with Dr. Yadav. Subjective 24 Hr Interval Summary Constitutional: improved Respiratory: no complaints Cardiovascular: no complaints Gastrointestinal: no complaints Genitourinary: no complaints Musculoskeletal: bone/joint pain Skin: erythema Exam/Review of Systems Vital Signs Vitals Vital Signs Date Time Temp Pulse Resp B/P Pulse Ox O2 Delivery O2 Flow Rate FiO2 04/05/17 08:24 98.2 67 20 162/83 96 Intake and Output 04/04/17 04/04/17 04/05/17 15:00 23:00 07:00 Intake Total 1550 ml 610 ml Balance 1550 ml 610 ml Exam Constitutional: alert, oriented, well developed Respiratory: clear to auscultation, normal air movement Cardiovascular: nl pulses, regular rate and rhythm Gastrointestinal: non-tender, soft Musculoskeletal: swelling Extremities: normal pulses Skin: other Results Result Diagram: 04/04/17 0505 04/05/17 0500 Results 24 hrs Laboratory Tests Test 04/05/17 05:00 Blood Urea Nitrogen 20 Creatinine 0.95 Medications Medications Current Medications Ondansetron HCl (Zofran Inj) 4 mg Q6H PRN IV NAUSEA AND/OR VOMITING; Start 03/31 at 00:00 Acetaminophen (Tylenol Tab) 650 mg Q6H PRN PO PAIN LEVEL 1-3 OR FEVER; Start at 00:00 Enoxaparin Sodium (Lovenox) 30 mg DAILY SC Last administered on 04/05/17t 08:23 ; Admin Dose 30 MG; Start 03/31/17 at 09:00 Aspirin (Halfprin) 81 mg DAILY PO Last administered on 04/05/17 08:19; Admin Dose 81 MG; Start 03/31/17 at 13:00 Carisoprodol (Soma) 350 mg Q8 PRN PO MUSCLE SPASMS; Start 03/31/17 at 12:00 Carvedilol (Coreg) 25 mg BID PO Last administered on 04/05/17 08:18; Admin Dose 25 MG; Start 03/31/17 at 13:00 Clopidogrel Bisulfate (plaVIX) 75 mg DAILY PO Last administered on 04/05/17 08 :19; Admin Dose 75 MG; Start 03/31/17 at 13:00 Gabapentin (Neurontin) 300 mg TID PO Last administered on 04/05/17 12:26; Admin Dose 300 MG; Start 03/31/17 at 13:00 Nicotine (Nicoderm 21 Mg/ 24hr) 1 patch DAILY@21 TRANSDERM Last administered on 04/04/17 20:46; Admin Dose 1 PATCH; Start 03/31/17 at 21:00 Ropinirole HCl (Requip) 1 mg HS PO Last administered on 04/04/17 20:46; Admin Dose 1 MG; Start 03/31/17 at 21:00 Famotidine 20 mg 20 mg Q12 PO Last administered on 04/05/17 08:18; Admin Dose 20 MG; Start 04/02/17 at 21:00 Vancomycin HCl/ Sodium Chloride (Vancocin/NS) 250 ml @ 83.333 mls/ hr Q12H IVPB Last administered on 04/05/17 12:26; Admin Dose 83.333 MLS/HR; Start at 01:00 Acetaminophen/ Hydrocodone Bitart ([place] (5/325)) 1 tab Q4H PRN PO PAIN; Start 04/04/17 at 18:30 ROSELINE CAR Apr 05, 2017 13:56
[2017-04-05 20:18] VITALS: BP 131/65; RESP 20
[2017-04-05] MEDS: NICOTINE (21 MG/24 HR) PATCH TRANSDERM SCH (20:22)
[2017-04-05] MEDS: ROPINIROLE 1 MG TAB PO SCH (20:22)
[2017-04-06] MEDS: VANCOMYCIN 1.25 GM in SOD CHLORIDE 0.9% 250 ML IVPB SCH ×2 (01:13→12:47)
[2017-04-06 05:47] LABS: ADD SCAN DIFF NO
[2017-04-06 05:49] LABS: BASOPHIL # 0.1 10^3/ul (0.0-0.1); BASOPHILS % 0.6 % (0.0-2.0); EOSINOPHILS # 0.3 10^3/ul (0.0-0.5); EOSINOPHILS % 3.9 % (0.0-7.0); HEMATOCRIT 36.5 % (42.0-52.0); HEMOGLOBIN 11.8 g/dl (14.0-18.0); LYMPHOCYTES # 1.8 10^3/ul (0.8-2.9); LYMPHOCYTES % 20.1 % (15.0-51.0); MEAN CORPUSCULAR HEMOGLOBIN 28.8 pg (29.0-33.0); MEAN CORPUSCULAR HGB CONC 32.3 g/dl (32.0-37.0); MEAN PLATELET VOLUME 10.7 fl (7.4-10.4); MONOCYTE # 0.8 10^3/ul (0.3-0.9); MONOCYTES % 9.3 % (0.0-11.0); NEUTROPHIL # 5.7 10^3/ul (1.6-7.5); NEUTROPHILS % 64.3 % (39.0-77.0); PLATELET COUNT 165 10^3/UL (140-415); RED CELL DISTRIBUTION WIDTH 13.1 % (11.5-14.5); WHITE BLOOD COUNT 8.8 10^3/ul (4.8-10.8)
[2017-04-06 06:23] LABS: CREATININE 0.99 mg/dl (0.61-1.24); POTASSIUM 3.8 mmol/L (3.5-5.1)
[2017-04-06 08:35] VITALS: BP 134/75; RESP 20
[2017-04-06] MEDS: CLOPIDOGREL 75 MG TAB PO SCH (08:54)
[2017-04-06] MEDS: GABAPENTIN 300 MG CAP PO SCH ×2 (08:54→12:46)
[2017-04-06] MEDS: FAMOTIDINE 20 MG TAB PO SCH (08:54)
[2017-04-06] MEDS: ASPIRIN (EC) 81 MG TAB PO SCH (08:54)
[2017-04-06] MEDS: ENOXAPARIN 30 MG/0.3 ML SYG SC SCH (08:57)
[2017-04-06] MEDS ORDERED: NICO1PAT6 TRANSDERM (16:38)
--- NOTE | 2017-04-08 20:43 | DS ---
Date/Time of Note Date/Time of Note DATE: 04/08/17 TIME: 20:39 Discharge Summary Admission/Discharge Info Admit Date/Time Mar 30, 2017 at 23:16 Discharge Date/Time Apr 06, 2017 at 17:30 Discharge Diagnosis - Left foot osteomyelitis - Status post left foot hammertoe surgery by Dr. Mcdaniel. - Hypertension. - Coronary artery disease status post OCCUPATIONAL MEDICINE OFFICER of left circumflex. - Peripheral vascular disease. Continue Plavix. - Tobacco dependence, cessation is strongly advised Patient Condition: Good Hx of Present Illness Patient with recent admission for osteomyelitis sent home on intravenous antibiotics (vancomycin) comes in because he was changed to a different antibiotics and was told to pay $900 and because he couldn't afford it, he came back to hospital. Hospital Course - Left foot osteomyelitis, patient needs to be on vancomycin until 04/[address] Sorto, infection disease. - Status post left foot hammertoe surgery by Dr. Mcdaniel. - Hypertension. Continue Coreg. - Coronary artery disease status post OCCUPATIONAL MEDICINE OFFICER of left circumflex. Continue aspirin and Plavix. - Dyslipidemia. - Peripheral vascular disease. Continue Plavix. - Tobacco dependence, cessation is strongly advised, continue nicotine patch. Arrange for pt to compete IV Vanco at home by home health. Home Meds Active Scripts Nicotine* (Nicotine* Patch) 21 mg/day Patch, 1 PATCH TRANSDERM DAILY@21 for 30 Days Prov:TARIQ HI 04/06/17 Hydrocodone/Acetaminophen ([place] 5-325 Tablet) 1 Each Tablet, 1 EACH PO Q4 for PAIN, #30 TAB Prov:TARIQ HI 03/16/17 Clopidogrel Bisulfate (Clopidogrel) 75 Mg Tab, 75 MG PO DAILY for 30 Days Prov:LEXA HALL NP 10/14/14 Reported Medications Daptomycin (Cubicin) 500 Mg Vial, 560 MG IVPB, VIAL 03/31/17 Carisoprodol* (Carisoprodol*) 350 Mg Tablet, 350 MG PO Q8 Y for MUSCLE SPASMS, TAB 03/02/17 Gabapentin* (Gabapentin*) 300 Mg Capsule, 300 MG PO TID, #90 CAP 01/29/17 Ropinirole Hcl* (Ropinirole Hcl*) 0.5 Mg Tablet, 1 MG PO HS, TAB 01/29/17 Carvedilol* (Carvedilol*) 25 Mg Tablet, 25 MG PO BID, #60 TAB 01/29/17 Aspirin* (Aspirin* EC) 81 Mg Tablet.dr, 81 MG PO DAILY, TAB 10/13/14 Losartan-Hydrochlorothiazide (Hyzaar) 50-12.5 Mg Tab, 1 TAB PO DAILY, TAB 10/13/14 Follow-up Plan f/up with PMD in 1-2 weeks. Primary Care Provider Not On Staff Doctor Time spent on discharge: > 30 minutes TARIQ HI Apr 08, 2017 20:42
== END 2017-04-06 17:30 | disposition home health service (06) | DRG 541 ==
LOC: E/R 22:18 → MS1 23:16
PROVIDERS: ADMIT Internal Medicine; ATTEND Internal Medicine
DX: M86.8X7 Other osteomyelitis, ankle and foot (principal); I10 Essential (primary) hypertension; Z95.5 Presence of coronary angioplasty implant and graft; F17.200 Nicotine dependence, unspecified, uncomplicated; E78.5 Hyperlipidemia, unspecified; F32.9 Major depressive disorder, single episode, unspecified; Z79.02 Long term (current) use of antithrombotics/antiplatelets; I73.9 Peripheral vascular disease, unspecified; E66.9 Obesity, unspecified; Z68.32 Body mass index [BMI] 32.0-32.9, adult
CPT/HCPCS: 36415; 80048; 80053; 80202; 82565; 84520; 85025; 87081; J1650; J3370; J7040; J7050

== ENCOUNTER 2017-04-08 07:03 | Emergency (ER) | payer MEDICARE, OTHER ==
[~2017-04-08] VITALS: Ht 170.2 cm; Wt 92.5 kg
[~2017-04-08 07:03] MED LIST changes: +DAPT500V5 IVPB
[2017-04-08 07:07] VITALS: Ht 170.2 cm; Wt 92.5 kg
[2017-04-08] MEDS ORDERED: DAPTOMYCIN IVPB STA (07:19)
[2017-04-08] MEDS ORDERED: SOD CHLORIDE 0.9% IVPB STA (07:19)
[2017-04-08] MEDS ORDERED: LIDOCAINE 1% (MPF) 5 ML VIAL SC ONE (07:30)
--- NOTE | 2017-04-08 11:32 | ERD ---
ER Documentation Chief Complaint Date/Time DATE: 04/08/17 TIME: 11:29 Chief Complaint CAME IN VIA INTAKE DUE TO RIGHT ARM PICC LINE ADVANCED OUT HPI This is a 36-year-old male who presents to the emergency room due to the fact that his PICC line has been pulled the majority of the way out. The patient states that he has a PICC line in place for left toe osteomyelitis. He is taking daptomycin 560 mg daily. The patient states that in his sleep he thinks he pulled his PICC line on accident. The patient denies any trauma to the area and came to the ER for evaluation. ROS All systems reviewed and are negative except as per history of present illness. Medications Home Meds Active Scripts Nicotine* (Nicotine* Patch) 21 mg/day Patch, 1 PATCH TRANSDERM DAILY@21 for 30 Days Prov:TARIQ HI 04/06/17 Hydrocodone/Acetaminophen ([place] 5-325 Tablet) 1 Each Tablet, 1 EACH PO Q4 for PAIN, #30 TAB Prov:TARIQ HI 03/16/17 Clopidogrel Bisulfate (Clopidogrel) 75 Mg Tab, 75 MG PO DAILY for 30 Days Prov:LEXA AHLL NP 10/14/14 Reported Medications Daptomycin (Cubicin) 500 Mg Vial, 560 MG IVPB, VIAL 03/31/17 Carisoprodol* (Carisoprodol*) 350 Mg Tablet, 350 MG PO Q8 Y for MUSCLE SPASMS, TAB 03/02/17 Gabapentin* (Gabapentin*) 300 Mg Capsule, 300 MG PO TID, #90 CAP 01/29/17 Ropinirole Hcl* (Ropinirole Hcl*) 0.5 Mg Tablet, 1 MG PO HS, TAB 01/29/17 Carvedilol* (Carvedilol*) 25 Mg Tablet, 25 MG PO BID, #60 TAB 01/29/17 Aspirin* (Aspirin* EC) 81 Mg Tablet.dr, 81 MG PO DAILY, TAB 10/13/14 Losartan-Hydrochlorothiazide (Hyzaar) 50-12.5 Mg Tab, 1 TAB PO DAILY, TAB 10/13/14 Allergies Allergies: Coded Allergies: adhesive (Verified Allergy, Mild, itching, 04/04/17) TEGADERM morphine (Verified Allergy, Unknown, ITCHING, 03/30/17) PMhx/Soc History of Surgery: Yes (HUMMER TOE REPAIR 2ND TOE RT+LT LEGS, CARDIAC STENT PLACEMENT) Anesthesia Reaction: Yes (ONCE-DIFFICULTY TO WAKE UP) Hx Neurological Disorder: Yes ( PERIPHERAL NEUROPATHY) Hx Respiratory Disorders: Yes (HX ASTHMA) Hx Cardiac Disorders: Yes (HTN, CAD, PRESENCE OF CARDIAC STENT ) Hx Psychiatric Problems: Yes Hx Miscellaneous Medical Probl: No Hx Alcohol Use: No Hx Substance Use: No Hx Tobacco Use: Yes (DAILY) Smoking Status: Current every day smoker Physical Exam Vitals Vital Signs Date Time Temp Pulse Resp B/P Pulse Ox O2 Delivery O2 Flow Rate FiO2 04/08/17 07:07 97.9 83 18 120/57 98 Physical Exam INITIAL VITAL SIGNS: Reviewed by me GENERAL: The patient is well developed and appropriate for usual state of health in no apparent distress HEENT: Pupils equal, round, and reactive to light. EOMI. There is no scleral icterus. NECK: C-spine is soft and supple, there is no meningismus. There is no cervical lymphadenopathy. LUNGS: Clear to auscultation bilaterally. There are no rales, wheezes or rhonchi. HEART: Regular rate and rhythm, no murmurs, clicks, rubs or gallops. ABDOMEN: Soft, non-tender, non-distended. There are bowel sounds in all four quadrants. No rebound or guarding. EXTREMITIES: Partially pulled the right upper extremity peripherally inserted central catheter, there is no peripheral cyanosis or edema. No focal swelling or erythema. NEUROLOGICAL: The patient moves all four extremities with 5/5 strength. Cranial nerves II - XII are intact. Normal gait. Alert and oriented SKIN: There is no apparent rash or petechiae. HEME/LYMPHATIC: There is no evidence of excessive bruising or lymphedema. PSYCHIATRIC: The patient does not appear anxious or depressed. Results 24 hrs Current Medications Medications (Trade) Dose Ordered Sig/Reed Route PRN Reason Start Time Stop Time Status Last Admin Dose Admin Daptomycin/Sodium Chloride (Cubicin/NS) 100 ml @ 200 mls/hr ONCE STAT IVPB 04/08/17 07:19 04/08/17 07:48 DC 04/08/17 08:52 Lidocaine (Xylocaine 1% (Mpf)) 5 ml ONCE ONCE SC 04/08/17 07:30 04/08/17 07:31 DC Procedures/MDM This 56--year-old male presents to the emergency room for evaluation of partially this large PICC line in the right upper extremity. He is taking daptomycin for left toe cellulitis and osteomyelitis. We have attempted to contact the PICC nurse however we have been unsuccessful. We have contacted her supervising nurse, warehouse representative, and after multiple times in the 4 hour period of waiting this patient states that he does not want to wait any longer. We did place a peripheral IV and gave him his dose of daptomycin today, and I advised him to return tomorrow for PICC line placement as we will have adequate staffing for placement of PICC line Departure Diagnosis: Primary Impression: Occluded PICC line Condition: Stable LEORA ALCANTARA DO Apr 08, 2017 11:32
[2017-04-08 11:39] VITALS: BP 135/69; PULSE 70; RESP 19; TEMP 97.9
== END 2017-04-08 11:42 | disposition home or self-care (01) ==
LOC: E/R 07:03
DX: T82.49XA Other complication of vascular dialysis catheter, initial encounter (principal); I10 Essential (primary) hypertension; J45.909 Unspecified asthma, uncomplicated; I25.10 Atherosclerotic heart disease of native coronary artery without angina pectoris; F17.210 Nicotine dependence, cigarettes, uncomplicated; Y79.2 Prosthetic and other implants, materials and accessory orthopedic devices associated with adverse incidents; Z79.82 Long term (current) use of aspirin; Z98.61 Coronary angioplasty status
CPT/HCPCS: 96365; 99284; J0878

== ENCOUNTER 2017-04-09 07:37 | Emergency (ER) | payer MEDICARE, OTHER ==
[~2017-04-09] VITALS: Wt 93.2 kg
--- NOTE | 2017-04-09 08:29 | ERD ---
ER Documentation Chief Complaint Date/Time DATE: 04/09/17 TIME: 08:25 Chief Complaint HERE FOR PICC LINE INSERTION ONLY. NO NURSE AVAIL YESTERDAY. HPI 56-year-old male comes in for PICC line insertion to treat osteomyelitis of his left second toe. He is currently receiving daptomycin IV. He had accidentally removed the PICC line, was here yesterday however there is no PICC line nurse available at the time, and he received his dose via peripheral IV. Patient denies fevers or chills. ROS All systems reviewed and are negative except as per history of present illness. Medications Home Meds Active Scripts Nicotine* (Nicotine* Patch) 21 mg/day Patch, 1 PATCH TRANSDERM DAILY@21 for 30 Days Prov:TARIQ HI 04/06/17 Hydrocodone/Acetaminophen ([place] 5-325 Tablet) 1 Each Tablet, 1 EACH PO Q4 for PAIN, #30 TAB Prov:TARIQ HI 03/16/17 Clopidogrel Bisulfate (Clopidogrel) 75 Mg Tab, 75 MG PO DAILY for 30 Days Prov:LEXA HALL NETWORK SUPPORT ANALYST 10/14/14 Reported Medications Daptomycin (Cubicin) 500 Mg Vial, 560 MG IVPB, VIAL 03/31/17 Carisoprodol* (Carisoprodol*) 350 Mg Tablet, 350 MG PO Q8 Y for MUSCLE SPASMS, TAB 03/02/17 Gabapentin* (Gabapentin*) 300 Mg Capsule, 300 MG PO TID, #90 CAP 01/29/17 Ropinirole Hcl* (Ropinirole Hcl*) 0.5 Mg Tablet, 1 MG PO HS, TAB 01/29/17 Carvedilol* (Carvedilol*) 25 Mg Tablet, 25 MG PO BID, #60 TAB 01/29/17 Aspirin* (Aspirin* EC) 81 Mg Tablet.dr, 81 MG PO DAILY, TAB 10/13/14 Losartan-Hydrochlorothiazide (Hyzaar) 50-12.5 Mg Tab, 1 TAB PO DAILY, TAB 10/13/14 Allergies Allergies: Coded Allergies: adhesive (Verified Allergy, Mild, itching, 04/04/17) TEGADERM morphine (Verified Allergy, Unknown, ITCHING, 03/30/17) PMhx/Soc History of Surgery: Yes (HUMMER TOE REPAIR 2ND TOE RT+LT LEGS, CARDIAC STENT PLACEMENT) Anesthesia Reaction: Yes (ONCE-DIFFICULTY TO WAKE UP) Hx Neurological Disorder: Yes ( PERIPHERAL NEUROPATHY) Hx Respiratory Disorders: Yes (HX ASTHMA) Hx Cardiac Disorders: Yes (HTN, CAD, OF CARDIAC STENT ) Hx Psychiatric Problems: Yes Hx Miscellaneous Medical Probl: No Hx Alcohol Use: No Hx Substance Use: No Hx Tobacco Use: Yes (DAILY) Smoking Status: Never smoker Physical Exam Vitals Vital Signs Date Time Temp Pulse Resp B/P Pulse Ox O2 Delivery O2 Flow Rate FiO2 04/09/17 07:41 98.6 97 20 134/77 98 Physical Exam General: Well-developed, well-nourished. The patient appears in no acute distress. HEENT: Head is normocephalic, atraumatic. No scleral icterus. Neck: Supple. Nontender. Lungs: Clear to auscultation. Normal air movement. Heart: Regular rate and rhythm. S1 and S2 are normal. No murmurs, gallops, or rubs. Abdomen: Nondistended. Extremities: No clubbing or cyanosis. Moving extremities x 4. No weakness. Neurologic: Alert and oriented 3. No focal deficits. Normal speech and gait. Skin: Normal turgor. No rash or lesions. Results 24 hrs Current Medications Medications (Trade) Dose Ordered Sig/Reed Route PRN Reason Start Time Stop Time Status Last Admin Dose Admin Lidocaine 5 ml 5 ml ONCE ONCE SC 04/09/17 09:00 04/09/17 09:01 DC Daptomycin/Sodium Chloride (Cubicin/NS) 100 ml @ 200 mls/hr Q24H ONCE IVPB 04/09/17 12:30 04/09/17 12:59 DC 04/09/17 12:42 IV Flush (NS 10 ml) 10 ml PRN PRN IV IV PROTOCOL 04/09/17 13:00 04/09/17 14:07 DC Procedures/MDM ED course: PICC line insertion was done in the emergency department via nurse. Medical decision making: This 56-year-old male presents with left second toe osteomyelitis. He was admitted and was discharged however he had accidentally pulled out his PICC line and comes in for reinsertion. PICC line was inserted by the nurse, he was given a dose of daptomycin. Patient's blood pressure was elevated (>120/80) but appears stable without evidence of hypertension emergency or urgency. The patient was counseled about the risks of hypertension and urged to pursue outpatient monitoring and therapy within a week with their primary care physician. Departure Diagnosis: Primary Impression: Status post peripherally inserted central catheter (PICC) central line placement Additional Impression: Osteomyelitis of toe of left foot Condition: LILLIAN Soriano PA-C Apr 09, 2017 08:28
[2017-04-09] MEDS ORDERED: LIDOCAINE 1% (MPF) 5 ML VIAL SC ONE (09:00)
--- NOTE | 2017-04-09 12:21 | RADRPT ---
PROCEDURE: US guidance for PICC line CLINICAL INDICATION: PICC line placement TECHNIQUE: Multiple real-time images were acquired of the patient's arm utilizing a high resolutio n transducer. This was performed by the PICC line nurse for venous access. COMPARISON: None FINDINGS: See impression. IMPRESSION: Ultrasound guidance for PICC line placement. There is a patent and compressible left upper extremity vein. RPTAT: AA Physician Duong Date Time Electronically viewed and signed by Phillip Arreaga Physician on 04/09/2017 12:21 RA/
[2017-04-09] MEDS ORDERED: DAPTOMYCIN IVPB ONE (12:30)
[2017-04-09] MEDS ORDERED: SOD CHLORIDE 0.9% IVPB ONE (12:30)
--- NOTE | 2017-04-09 14:36 | RADRPT ---
PROCEDURE: XR Chest. CLINICAL INDICATION: Check PICC line position. TECHNIQUE: Single frontal view. COMPARISON: 03/20/2017 FINDINGS: There is a left arm PICC line with the tip in the lower superior vena cava. The right arm PICC line has been removed. The lungs are clear. The heart is mildly enlarged. There is calcification in the aorta consistent with atherosclerosis. There is no pleural effusion. There is no pneumothorax. IMPRESSION: 1. Right arm PICC line removed. 2. Left arm PICC line tip in satisfactory position. 3. Otherwise normal chest radiograph. RPTAT: QQ .Americo Zhang MD, MD Date Time Electronically viewed and signed by .Americo Zhang MD, on 04/09/2017 14:36 .R/
== END 2017-04-09 14:07 | disposition home or self-care (01) ==
LOC: FTE 07:37
DX: Z45.2 Encounter for adjustment and management of vascular access device (principal); M86.9 Osteomyelitis, unspecified; I10 Essential (primary) hypertension; I25.10 Atherosclerotic heart disease of native coronary artery without angina pectoris; J45.909 Unspecified asthma, uncomplicated; F17.210 Nicotine dependence, cigarettes, uncomplicated; Z79.01 Long term (current) use of anticoagulants; Z79.82 Long term (current) use of aspirin; Z98.61 Coronary angioplasty status
CPT/HCPCS: 36569; 71010; 76937; J0878; 96374